=== PATIENT | male | born 1975 | race Caucasian/White ===

== ENCOUNTER 2023-07-23 15:47 | Outpatient (OUT) | payer OTHER, SELFPAY ==
--- NOTE | 2023-07-23 | XR_ITS ---
The [place] [id number] Patient Name: GABBI ALLISON MRN: [id number] date: 1975 Sex: M Assigned Patient Location: [facility] Current Patient Location: [facility] Accession/Order Number: [id number] Exam Date: 07/23/2023 16:01 Report Date: 07/23/2023 16:40 At the request of: MASON LERNER Procedure: XR tibia fibula LT 2V EXAM: XR ankle LT min 3V, XR tibia fibula LT 2V HISTORY: LEFT ANKLE INJURY COMPARISON: None. TECHNIQUE: Frontal and lateral views of the left tibia and fibula, 3 views of the left ankle are performed. FINDINGS: There is soft tissue thickening in the region of the Achilles tendon. There is some stranding of the pre-Achilles fat pad. No acute fracture is identified. There is a small plantar calcaneal spur, and an enthesophyte at the insertion of the Achilles tendon. The ankle mortise is preserved. XR/XR tibia fibula LT 2V IMPRESSION: Thickening of the Achilles tendon. This patient may benefit from further evaluation with MRI to exclude partial tear. No acute fracture. Electronically authenticated by: FADY DUNLAP Date: 07/23/2023 16:40
--- NOTE | 2023-07-23 | XR_ITS ---
The [place] [id number] Patient Name: GABBI ALLISON MRN: [id number] date: 1975 Sex: M Assigned Patient Location: [facility] Current Patient Location: [facility] Accession/Order Number: [id number] Exam Date: 07/23/2023 16:01 Report Date: 07/23/2023 16:40 At the request of: MASON LERNER Procedure: XR ankle LT min 3V EXAM: XR ankle LT min 3V, XR tibia fibula LT 2V HISTORY: LEFT ANKLE INJURY COMPARISON: None. TECHNIQUE: Frontal and lateral views of the left tibia and fibula, 3 views of the left ankle are performed. FINDINGS: There is soft tissue thickening in the region of the Achilles tendon. There is some stranding of the pre-Achilles fat pad. No acute fracture is identified. There is a small plantar calcaneal spur, and an enthesophyte at the insertion of the Achilles tendon. The ankle mortise is preserved. XR/XR ankle LT min 3V IMPRESSION: Thickening of the Achilles tendon. This patient may benefit from further evaluation with MRI to exclude partial tear. No acute fracture. Electronically authenticated by: FADY DUNLAP Date: 07/23/2023 16:40
== END 2023-07-23 15:48 | disposition home or self-care (01) ==
PROVIDERS: PCP Family Medicine; Visit Provider Nurse Practitioner Family
DX: S86.002A Unspecified injury of left Achilles tendon, initial encounter (principal)
CPT/HCPCS: 73590; 73610

== ENCOUNTER 2023-07-25 12:39 | Outpatient (OUT) | payer SELFPAY | END 2023-07-25 12:40 | disposition home or self-care (01) | LOC: PST 12:39 | PROVIDERS: PCP Family Medicine; Visit Provider Podiatrist Foot & Ankle Surgery | DX: Z01.818 Encounter for other preprocedural examination (principal); S86.012A Strain of left Achilles tendon, initial encounter; I10 Essential (primary) hypertension ==

== ENCOUNTER 2023-07-28 14:58 | Observation (INO) | payer OTHER, SELFPAY ==
[2023-07-28] VITALS (67 sets, daily range): BP systolic 94–150; BP diastolic 54–103; PULSE 69–186; RESP 9–23; TEMP 36.2–36.8; O2SAT 91–98; BMI 32.2; BMI 34.0
[2023-07-28 08:15] LABS: Glucometer 109 mg/dL (74-106)
--- NOTE | 2023-07-28 08:22 | ECG_ITS ---
The [facility] Test Date: 2023-07-28 Pat Name: GABBI ALLISON Department: Room: - Gender: Male Foster Parent: : 1975 Requested By: FREDI SANDOVAL Order Number: [id number] Reading MD: EULALIO CACERES Measurements Intervals [place] Rate: 66 P: 8 MS: 161 QRS: 45 QRSD: 102 T: 34 QT: 399 QTc: 420 Interpretive Statements SINUS RHYTHM INCOMPLETE RIGHT BUNDLE BRANCH BLOCK [90+ ms QRS DURATION, TERMINAL R IN V1/V2, 40+ ms S IN I/aVL/V4/V5/V6] No previous ECG available for comparison Electronically Signed On 07-29-2023 7:01:52 EDT by EULALIO CACERES
[2023-07-28 08:31] LABS: Basophils Absolute Auto 0.1 10^3/uL (0.0-0.1); Basophils Percent Auto 0.6 % (0.2-2.0); Eosinophils Absolute Auto 0.1 10^3/uL (0.0-0.7); Eosinophils Percent Auto 1.2 % (0.9-7.0); Hematocrit 45.9 % (42.0-54.0); Hemoglobin 15.3 g/dL (14.0-18.0); Immature Granulocytes Abs Auto 0.04 10^3/uL (0.00-0.03); Immature Granulocytes Pct Auto 0.5 % (0.0-0.5); Lymphocytes Absolute Auto 2.4 10^3/uL (1.2-3.8); Lymphocytes Percent Auto 31.1 % (20.5-60.0); Mean Corpuscular HGB Conc 33.3 g/dL (29.9-35.2); Mean Corpuscular Hemoglobin 29.4 pg (25.9-34.0); Mean Corpuscular Volume 88.1 fL (80.0-94.0); Mean Platelet Volume 10.8 fL (9.5-13.5); Monocytes Absolute Auto 0.6 10^3/uL (0.3-0.8); Monocytes Percent Auto 7.8 % (1.7-12.0); Neutrophils Absolute Auto 4.6 10^3/uL (1.4-6.5); Neutrophils Percent Auto 58.8 % (43.0-75.0); Platelet Count 232 10^3/uL (150-450); Red Blood Count 5.21 10^6/uL (4.70-6.10); Red Cell Distribution Width 11.9 % (11.0-15.0); White Blood Count 7.8 10^3/uL (4.0-11.0)
[2023-07-28] MEDS: LACTATED RINGER'S SOLUTION 1,000 ML 50 ML IV ×2 (08:39→12:11)
[2023-07-28 08:42] LABS: Alanine Aminotransferase 29 U/L (16-63); Albumin Globulin Ratio 1.1; Albumin Level 3.8 g/dL (3.4-5.0); Alkaline Phosphatase 88 U/L (46-116); Anion Gap 14.8; Aspartate Amino Transferase 12 U/L (15-37); BUN Creatinine Ratio 17.8; Bilirubin Total 0.6 mg/dL (0.2-1.0); Calcium 9.4 mg/dL (8.5-10.1); Carbon Dioxide 26.6 mmol/L (21.0-32.0); Chloride 101 mmol/L (98-107); Estimated GFR (African America >60 (>=60); Estimated GFR (Non-African Ame >60 (>=60); Globulin 3.5 g/dL; Glucose 111 mg/dL (74-106); Potassium 4.4 mmol/L (3.5-5.1); Sodium 138 mmol/L (136-145); Total Protein 7.3 g/dL (6.4-8.2)
[2023-07-28] MEDS: CEFAZOLIN SODIUM/DEXTROSE,ISO 2 GM/50 ML PIGGYBACK IV (11:23)
[2023-07-28] MEDS: VANCOMYCIN HCL 1,000 MG VIAL 1000 MG TOPICAL (12:50)
--- NOTE | 2023-07-28 13:18 | XR_ITS ---
The [address] [address] Patient Name: GABBI ALLISON MRN: [id number] date: 1975 Sex: M Assigned Patient Location: SURGOUT Current Patient Location: ICU Accession/Order Number: [id number] Exam Date: 07/28/2023 14:15 Report Date: 07/29/2023 08:58 At the request of: ELAINE GRIFFIN Procedure: XR foot LT min 3V PROCEDURE: XR foot LT min 3V COMPARISON: HISTORY: postop xr pacu FINDINGS: BONES:No fracture, acute abnormality, or significant arthropathy. SOFT TISSUES:Posterior ankle soft tissue swelling and subcutaneous emphysema. Subtle lucencies in the posterior calcaneus, postsurgical change EFFUSION:None visible. OTHER: Negative. XR/XR foot LT min 3V IMPRESSION: Postsurgical changes posterior ankle and calcaneus Electronically authenticated by: KEVYN PASTOR Date: 07/29/2023 08:58
--- NOTE | 2023-07-28 13:27 | P.ORON_ITS ---
Brief Operative Note Date of procedure: 07/28/23 Pre-op diagnosis: left Achilles tendon rupture Post-op diagnosis: same as pre-op Procedure: PROCEDURES PERFORMED: LEFT Achilles tendon rupture repair with application of short leg splint INTRAOPERATIVE FINDINGS: Complete rupture of the Achilles tendon in the watershed area with retraction of __ cm. Hematoma was notable and evacuated. Skin edges bled appropriately. PROCEDURE IN DETAIL: Patient was identified in the preoperative holding area and correct side and site were marked. I reviewed the consent with the patient as well as risks and benefits of the procedure. I reviewed postsurgical course and answered all questions. Preoperative antibiotics were started and the patient was brought to the operating theater and was intubated. Thigh tourniquet was applied. He was then flipped onto the operative table in a well-padded prone position. The operative extremity was prepped and draped in usual sterile fashion. Formal timeout was performed. The rupture site was identified and a central posterior 6 cm incision was placed over the Achilles tendon proximal to the rupture site. Sharp and blunt dissection was performed and the peritenon was identified and meticulously reflected for later repair. Hematoma was evacuated and the surgical site was irrigated with copious saline. Utilizing suture tape a Krak?w stitch was performed on the proximal Achilles tendon. The two limbs of the suture tape were tagged for later use. The distal Achilles tendon rupture site was identified and debrided of any hematoma and the surgical site was irrigated thoroughly. Then two stab incisions were placed on the medial and lateral insertion sites. Blunt dissection down to bone was performed. Two drill holes for suture anchors were placed in each of the stab incisions. The suture tape was then passed with a Sheree clamp into each of the stab incisions. Then my trading assistant held the foot in maximum plantar flexion as well as held tension on the lateral suture tape while I placed the medial suture tape through a 4.5 mm anchor. According to the commercial lines account manager's standard directions that anchor was placed into the drill hole holding tension appropriately. Then in a similar fashion another anchor was placed through the lateral stab incision. It was noted on the table that there was good apposition between the ruptured sites. Good fixation was obtained with testing plantarflexion/dorsiflexion of the ankle. surgical site was irrigated copiously and a allograft tendon wrap was placed around the Achilles tendon at the rupture site and sewn to itself. The graft was then rotated to hide the sutures and the graft was translated distally covering the rupture site. Surgical site was irrigated with saline and 1 g of vancomycin powder was placed into the surgical site. The peritenon was repaired with absorbable suture. Tourniquet was then dropped and the incision was closed in layers while the stab incisions were closed in one layer with nonabsorbable suture. A dry sterile dressing was applied. Multiple layers of cast padding were then applied to ensure all bony prominences were well-padded. A plaster posterior splint was then applied which was held in place by Patel wraps. Capillary refill time to all digits was evaluated and had appropriate response. POSTOPERATIVE PLAN: Discharge home under family's care Post op instructions provided verbally and written prescription(s) were placed in chart NWB operative foot/ankle x3 wks Follow-up in 1 week Implants: Artelon allograft tendon wrap Anesthesia: regional and General-ET Surgeon: Oliverio Britton Senior Sql Developer: Dain Douglas Estimated blood loss (mL): 10 Pathology: none sent Condition: other (Patient upon waking up went into A-flutter which was medically managed by anesthesia. Heart rate and rhythm returned to normal and patient conversed normally in the PACU. No cardioversion was necessary. Please see anesthesia notes/report for details ) Disposition: PACU Preoperative Details Reason for procedure: patient is a 47-year-old male who sustained a work-related injury to his left Achilles tendon on 07/23/23. Patient related that he felt a pop as Achilles tendon followed by pain and inability to plantarflex his foot. He was taken to the emergency department and evaluated and findings were consistent with Achilles tendon tear. I saw him in the office on 07/25/23 and he demonstrated a well-developed in the watershed area of the Achilles tendon, localized swelling and weakness on plantar flexion. We discussed potential risks and benefits of surgical and nonsurgical treatment. Patient was educated on his pathology and prognosis as well as potential complications. Specifically we discussed that he is at higher risk for incision complications given active nicotine use, rerupture and chronic weakness. Patient wished to proceed with surgical intervention.
--- NOTE | 2023-07-28 13:32 | ECG_ITS ---
The [facility] Test Date: 2023-07-28 Pat Name: GABBI ALLISON Department: Room: - Gender: Male Foot Caster: : 1975 Requested By: AMANDA DOHERTY Order Number: [id number] Reading MD: EULALIO CACERES Measurements Intervals [place] Rate: 85 P: 19 NC: 158 QRS: 58 QRSD: 99 T: 32 QT: 386 QTc: 461 Interpretive Statements SINUS RHYTHM WITH OCCASIONAL VENTRICULAR PREMATURE COMPLEXES NONSPECIFIC T-WAVE ABNORMALITY Compared to ECG 07/28/2023 08:30:17 Ventricular premature complex(es) now present T-wave abnormality now present Incomplete right bundle-branch block no longer present Electronically Signed On 07-29-2023 7:04:03 EDT by EULALIO CACERES
[2023-07-28] MEDS: HYDROMORPHONE HCL 0.5 MG/0.5 ML SYRINGE IV ×2 (13:43→13:53)
[2023-07-28 13:45] LABS: Glucometer 122 mg/dL (74-106)
[2023-07-28] MEDS: OXYCODONE HCL/ACETAMINOPHEN 5MG/325MG 1 TAB PO (13:55)
--- NOTE | 2023-07-28 14:30 | ECG_ITS ---
The [facility] Test Date: 2023-07-28 Pat Name: GABBI ALLISON Department: Room: [facility] Gender: Male [employer]: : 1975 Requested By: AMANDA DOHERTY Order Number: [id number] Reading MD: EULALIO CACERES Measurements Intervals [place] Rate: 167 P: [place]: QRS: 83 QRSD: 91 T: -9 QT: 235 QTc: 392 Interpretive Statements ATRIAL FIBRILLATION WITH RAPID VENTRICULAR RESPONSE WITH ABERRANT CONDUCTION OR VENTRICULAR PREMATURE COMPLEXES NONSPECIFIC ST & T-WAVE ABNORMALITY Compared to ECG 07/28/2023 13:38:48 Aberrant conduction of supraventricular beat(s) now present Sinus rhythm no longer present T-wave abnormality still present Electronically Signed On 07-29-2023 7:04:25 EDT by EULALIO CACERES
--- NOTE | 2023-07-28 14:56 | PC.NURSE ---
Dr. Oscar aware of each episode of irregular rhythms. Obtained 2 12 lead EKG's. Patient was asymptomatic with each bout. After further discussion, patient was admitted to ICU for further observation and is being placed on a Cardizem drip for new onset A fib with RVR. Patient and spouse both voiced understanding.
--- NOTE | 2023-07-28 15:02 | CA_ITS ---
Patient: GABBI ALLISON Exam Date: 07/29/2023 : 1975 Gender:M Ordering : DAI SHELTON . Admission #: [id number] Family : DR. Oliverio Britton D.P.M. Order #: [id number] CLICK HERE TO VIEW EXAM ECHOCARDIOGRAM REPORT PROCEDURE: CA ECHO DOPPLER COMPLETE INDICATIONS: new onset afib w/RVR COMPARISON: None. DESCRIPTION: COMPLETE ECHOCARDIOGRAM Real-time transthoracic echocardiography with 2D, M-mode, spectral and color flow Doppler performed. QUALITY: Technical quality was adequate. LEFT VENTRICLE: Normal chamber size. Normal left ventricular wall thickness. LV EF: Global left ventricular systolic function is normal. Visual estimation of left ventricular ejection fraction is 60%. DIASTOLIC: Normal diastolic function. ATRIAL SEPTUM: Inadequately seen. LEFT ATRIUM: Normal chamber size. RIGHT ATRIUM: Normal chamber size. RIGHT VENTRICLE: Normal chamber size. Normal right ventricular systolic function. TRICUSPID VALVE: Normal mobility and thickness. No stenosis with trivial regurgitation. No evidence of pulmonary hypertension. RVSP 24mmHg. MITRAL VALVE: Normal mobility and thickness. No evidence of mitral valve stenosis. There is no mitral annular calcification. Trivial mitral regurgitation. AORTIC VALVE: Normal trileaflet appearance. No visible sclerosis. Normal leaflet mobility. No evidence of aortic valve stenosis. No aortic regurgitation. AORTIC ROOT: Normal diameter and appearance. PULMONIC VALVE: Normal thickness and mobility. No stenosis. Trivial regurgitation. PERICARDIUM: No evidence of pericardial effusion. IVC: Collapses with inspirations. Normal size. CONCLUSION: 1. Global left ventricular systolic function is normal; visually estimated ejection fraction is 55 to 60% 2. Normal diastolic function 3. The right ventricle is normal in size and systolic function 4. No significant valvular abnormalities Adult Echocardiography Procedure Report Left Ventricle LVEDD (3.7 - 5.6 cm): 4.43 cm LVESD (2.2 - 4.0 cm): 3.08 cm LVIVS thickness (0.6 - 1.2 cm): 0.89 cm LVPW thickness (0.5 - 1.0 cm): 1.04 cm e': 0.13 m/s E - e': 6.16 LVOT Max Gradient: 4.30 mm[Hg] LVOT Area (cm2): 1.04 m/s Peak Velocity (LVOT): 1.04 m/s Mean Velocity (LVOT): 0.60 m/s LVOT Diameter 2.22 cm Left Ventricular Ejection Fraction: 71.16 % Left Atrium LA Volume Index (2D A2C): 34.09 ml/m2 Left Atrium Systolic Dimension: 4.20 cm Mitral Valve MV E to A Ratio: 1.33 Mitral Valve A-Wave Peak Velocity: 0.60 m/s Mitral Valve E-Wave Peak Velocity: 0.79 m/s Right Ventricle RV Internal Diastolic Dimension: 3.44 cm Aorta AO Root Diam: 3.43 cm Ascending Ao Diam: 3.36 cm Aortic Valve AoV Area (Peak Alon): 3.01 cm2, 3.01 cm2 AoV Area (VTI): 2.98 cm2, 2.98 cm2 Peak Velocity(Antegrade Flow): 1.33 m/s Peak Gradient(Antegrade Flow): 7.03 mm[Hg] Mean Velocity(Antegrade Flow): 0.90 m/s Mean Gradient(Antegrade Flow): 3.73 mm[Hg] Velocity Time Integral: 29.20 cm Tricuspid Valve Peak Velocity (Regurgitant Flow): 1.78 m/s, 2.05 m/s, 2.29 m/s Pulmonic Valve Mean Gradient: 2.28 mm[Hg], 2.84 mm[Hg] Mean Velocity: 0.70 m/s, 0.78 m/s Peak Velocity: 1.14 m/s Peak Gradient: 4.45 mm[Hg], 5.99 mm[Hg] Right Atrium Right Atrium Systolic Pressure: 56.06 ml, 56.06 ml Dictated by: Ky Quiros M.D. on 07/31/2023 at 16:13 Approved by: Ky Quiros M.D. on 07/31/2023 at 16:16
[2023-07-28] MEDS: DILTIAZEM HCL 25 MG/5 ML VIAL 10 MG IV (15:14)
[2023-07-28] MEDS: dilTIAZem HCL 125 MG in 0.9 % SODIUM CHLORIDE 100 ML IV (15:20)
--- NOTE | 2023-07-28 15:32 | PM.HP ---
H&P: HPI History of Present Illness Chief complaint: RUPTURE OF LEFT ACHILLES TENDON Narrative: patient is a 47-year-old male with past history of hypertension who presented in the postoperative setting with new onset atrial fibrillation with RVR. Patient underwent a left Achilles tendon repair and had a few 2nd run of ventricular tachycardia that transitioned into atrial fibrillation with RVR that was then captured on EKG. Patient has no prior cardiac history other than hypertension of which he takes lisinopril and amlodipine. He does smokeless tobacco, and drinks alcohol daily. He currently denies any chest pain shortness of breath at the time of admission, patient was transferred from the PACU to the ICU for further management. Review of Systems ROS Narrative ROS: a complete review of systems were reviewed with patient and are positive as below or listed in History of Chief Complaint. General: no fever, chills, night sweats Head: no headache, trauma, visual changes, nausea or vomiting Skin: no reported rashes, itching or sores Eyes: no blurriness of vision Ears: no reported hearing loss, vertigo, earache, or tinnitus Throat: no sore throat, hoarseness, swelling of neck, or tongue pain Heart: no chest pain Lungs: no shortness of breath or cough GI: no diarrhea or vomiting/nausea Urinary: no urinary urgency, frequency or pain Neuro: no numbness or tingling HEM: no bleeding issues or bruising ENDO: no thyroid problems Psych: no anxiety or depression PFSH PFS Medical History Surgical History Family History Other Atrial fibrillation Family history of coronary artery disease Family history of heart disease Social History Within the past year, how often did you have a drink containing alcohol: 2-3 times a week Smoking status: Never smoker Previous occupational history: [employer] Highest level of school completed/degree received: high school graduate Meds Home Medications and Allergies Home Medications Medication Instructions Recorded Confirmed Type amlodipine 10 mg tablet 10 mg PO DAILY 07/25/23 07/28/23 History lisinopril 20 mg tablet 20 mg PO DAILY 07/25/23 07/28/23 History aspirin 81 mg tablet,delayed 81 mg PO BID 30 days #60 tabs 07/28/23 Rx release (Adult Low Dose Aspirin) cefadroxil 500 mg capsule 500 mg PO BID 2 weeks #28 caps 07/28/23 Rx hydrocodone 5 mg-acetaminophen 325 1 tab PO Q6H PRN pain 7 days #28 07/28/23 Rx mg tablet tabs ondansetron 4 mg disintegrating 4 mg PO Q8H PRN nausea and 07/28/23 Rx tablet vomiting 5 days #15 tabs sennosides 8.6 mg tablet (Senna 8.6 mg PO DAILY PRN constipation 7 07/28/23 Rx Laxative) days #7 tabs tizanidine 2 mg capsule 2 mg PO TID PRN muscle spasticity 07/28/23 Rx 7 days #21 caps Allergies Allergy/AdvReac Type Severity Reaction Status Date / Time No Known Drug Allergies Allergy Verified 07/25/23 12:02 Exam Narrative Exam Narrative: General: Patient is alert, and oriented to person, place and time with normal affect, proper hygiene Skin: no visible rashes, or ulcers Head: atraumatic, acephalic Eyes: PERRLA, no nystagmus present, conjunctiva clear, no scleral icterus Ears: normal gross auditory acuity Nose: symmetric, no discharge, no maxillary or frontal sinus tenderness Heart: irregular rate and rhythm, no murmurs/rubs/gallops Lungs: no audible wheezes, crackles and normal breath sounds all lung garcia Abdomen: Normal audible bowel sounds, no distension, No palpable masses, no organomegaly, no rebound/guarding/ or rigidity Musculoskeletal: left foot boot/c/d/i Neuro: CN II-X grossly intact, normal sensation upper and lower extremities Constitutional Vital Signs, click to edit/add: Last Vital Signs Temp 98.2 F 07/28/23 14:52 Pulse 160 H 07/28/23 14:58 Resp 16 07/28/23 14:52 BP 108/72 07/28/23 15:14 Pulse Ox 98 07/28/23 14:52 O2 Del Method Room Air 07/28/23 14:52 Results Labs Labs: Short CBC 07/28/23 Range/Units 08:15 WBC 7.8 (4.0-11.0) 10^3/uL Hgb 15.3 (14.0-18.0) g/dL Hct 45.9 (42.0-54.0) % Plt Count 232 (150-450) 10^3/uL BMP 07/28/23 08:15 Sodium 138 Potassium 4.4 Chloride 101 Carbon Dioxide 26.6 BUN 16.0 Creatinine 0.90 Glucose 111 H Calcium 9.4 Liver Function 07/28/23 Range/Units 08:15 Total Bilirubin 0.6 (0.2-1.0) mg/dL AST 12 L (15-37) U/L ALT 29 (16-63) U/L Alkaline Phosphatase 88 (46-116) U/L Albumin 3.8 (3.4-5.0) g/dL Assessment and Plan Assessment and Plan (1) Atrial fibrillation with rapid ventricular response: Assessment and Plan: new-onset atrial fibrillation, will place on Lovenox therapeutic and transition to Eliquis tomorrow. Was given a loading dose of diltiazem 10 mg IV ?1 and will be started on a diltiazem drip at 5 mg per hour. Titrate drip accordingly. Echocardiogram, magnesium, cardiac enzymes, pro BNP, CBC, CMP, lipids, thyroid, hemoglobin A1c are all ordered and pending. Cardiology consult for further recommendations and treatment. CIWA scores q shift for any alcohol withdrawal (2) New onset a-fib: Assessment and Plan: see #1 (3) Hypertension: Assessment and Plan: hold lisinopril and amlodipine for now (4) Achilles tendon rupture: Assessment and Plan: podiatry following, pain control Plan full code lovenox to eliquis observation status, cards consult
[2023-07-28 15:39] LABS: Estimated Average Glucose 123 mg/dL; Glycohemoglobin A1C 5.9 % (4.5-6.2)
[2023-07-28 15:45] LABS: INR 0.94; Partial Thromboplastin Time 28.1 sec (22.3-36.2)
[2023-07-28 15:52] LABS: Creatine Kinase 57 U/L (39-308); Creatine Kinase MB <0.50 ng/mL (<=3.60); Troponin I High Sensitivity <4.0 pg/mL (4.0-76.1)
[2023-07-28 15:53] LABS: Alanine Aminotransferase 31 U/L (16-63); Albumin Globulin Ratio 1.1; Albumin Level 3.7 g/dL (3.4-5.0); Alkaline Phosphatase 85 U/L (46-116); Anion Gap 11.9; Aspartate Amino Transferase 14 U/L (15-37); BUN Creatinine Ratio 15.6; Bilirubin Total 0.4 mg/dL (0.2-1.0); Carbon Dioxide 27.2 mmol/L (21.0-32.0); Chloride 103 mmol/L (98-107); Chol HDL Ratio 6.5; Cholesterol 226 mg/dL (<=200); Estimated GFR (African America >60 (>=60); Estimated GFR (Non-African Ame >60 (>=60); Globulin 3.4 g/dL; Glucose 140 mg/dL (74-106); HDL Cholesterol 35 mg/dL (40-60); Magnesium 1.9 mg/dL (1.8-2.4); Potassium 4.1 mmol/L (3.5-5.1); Sodium 138 mmol/L (136-145); Thyroid Stimulating Hormone 0.736 uIU/mL (0.358-3.740); Total Protein 7.1 g/dL (6.4-8.2); Triglycerides 186 mg/dL (<=150); VLDL CHOLESTEROL 37.2 mg/dL
[2023-07-28 15:56] LABS: SARS-CoV-2 Ag NEGATIVE (NEGATIVE)
[2023-07-28 16:07] LABS: Basophils Percent Auto 0.2 % (0.2-2.0); Hematocrit 44.7 % (42.0-54.0); Hemoglobin 14.9 g/dL (14.0-18.0); Immature Granulocytes Abs Auto 0.05 10^3/uL (0.00-0.03); Immature Granulocytes Pct Auto 0.4 % (0.0-0.5); Lymphocytes Absolute Auto 0.6 10^3/uL (1.2-3.8); Lymphocytes Percent Auto 5.5 % (20.5-60.0); Mean Corpuscular HGB Conc 33.3 g/dL (29.9-35.2); Mean Corpuscular Hemoglobin 29.3 pg (25.9-34.0); Mean Corpuscular Volume 87.8 fL (80.0-94.0); Mean Platelet Volume 11.3 fL (9.5-13.5); Monocytes Absolute Auto 0.1 10^3/uL (0.3-0.8); Monocytes Percent Auto 0.5 % (1.7-12.0); Neutrophils Absolute Auto 10.5 10^3/uL (1.4-6.5); Neutrophils Percent Auto 93.4 % (43.0-75.0); Platelet Count 238 10^3/uL (150-450); Red Blood Count 5.09 10^6/uL (4.70-6.10); White Blood Count 11.2 10^3/uL (4.0-11.0)
[2023-07-28] MEDS: METOPROLOL TARTRATE 25 MG TABLET PO (17:11)
[2023-07-28] MEDS: dilTIAZem HCL 125 MG in 0.9 % SODIUM CHLORIDE 100 ML 10 MG IV (17:31)
--- NOTE | 2023-07-28 17:53 | PM.CACN ---
History of Present Illness History of Present Illness Consult date: 07/28/23 Requesting physician: Charity Ragsdale Consult reason: atrial fibrillation Chief complaint: RUPTURE OF LEFT ACHILLES TENDON Narrative: Mr. Sprague is a 47-year-old male with a past medical history including HTN who presented to the hospital for planned surgery due to rupture of left Achilles tendon. Postoperatively, patient was noted to be in atrial fibrillation with rapid ventricular response. Cardiology was asked to consult on patient for atrial fibrillation with rapid ventricular response. Patient was interviewed and examined. He denies any cardiac complaints or concerns. He adamantly denies any chest pain or shortness of breath. He denies any lower extremity edema, orthopnea, or paroxysmal nocturnal dyspnea. He denies any palpitations. He denies any near syncope or syncope. Patient denies any previous cardiac history. No history of AR, CHF, or CVA. He denies any history of arrhythmia. Patient is very active at baseline. He is a [employer], and he is reports rigorous activity without any symptoms. Again, no chest pain or shortness of breath with heavy exertion Review of Systems ROS Status of ROS 10 or more systems reviewed and unremarkable except as noted in history and below [facility] Medical History Surgical History Family History Other Atrial fibrillation Family history of coronary artery disease Family history of heart disease Social History Within the past year, how often did you have a drink containing alcohol: 2-3 times a week Smoking status: Never smoker Previous occupational history: [employer] Highest level of school completed/degree received: high school graduate Meds Home Medications and Allergies Home Medications Medication Instructions Recorded Confirmed Type amlodipine 10 mg tablet 10 mg PO DAILY 07/25/23 07/28/23 History lisinopril 20 mg tablet 20 mg PO DAILY 07/25/23 07/28/23 History aspirin 81 mg tablet,delayed 81 mg PO BID 30 days #60 tabs 07/28/23 Rx release (Adult Low Dose Aspirin) cefadroxil 500 mg capsule 500 mg PO BID 2 weeks #28 caps 07/28/23 Rx hydrocodone 5 mg-acetaminophen 325 1 tab PO Q6H PRN pain 7 days #28 07/28/23 Rx mg tablet tabs ondansetron 4 mg disintegrating 4 mg PO Q8H PRN nausea and 07/28/23 Rx tablet vomiting 5 days #15 tabs sennosides 8.6 mg tablet (Senna 8.6 mg PO DAILY PRN constipation 7 07/28/23 Rx Laxative) days #7 tabs tizanidine 2 mg capsule 2 mg PO TID PRN muscle spasticity 07/28/23 Rx 7 days #21 caps Allergies Allergy/AdvReac Type Severity Reaction Status Date / Time No Known Drug Allergies Allergy Verified 07/25/23 12:02 Exam Constitutional Vital Signs, click to edit/add: Last Vital Signs Temp 98.2 F 07/28/23 14:52 Pulse 160 H 07/28/23 14:58 Resp 16 07/28/23 14:52 BP 108/72 07/28/23 15:14 Pulse Ox 98 07/28/23 17:13 O2 Del Method Room Air 07/28/23 17:13 Documenting provider has reviewed patient's vital signs: yes Common normals: no apparent distress General appearance: cooperative, comfortable and well developed Orientation/consciousness: Yes awake, Yes oriented to person, Yes oriented to place and Yes oriented to time HENMT Common normals: normocephalic Nose: nares normal Eye Common normals: PERRL and EOMs intact bilaterally Neck & C-Spine Common normals: no JVD Chest Common normals: inspection of chest normal Chest: symmetrical chest wall rise Respiratory Common normals: normal respiratory effort Effort & inspection: able to speak in complete sentences and symmetric chest movement Auscultation: clear to auscultation bilaterally Cardio Common normals: no JVD, S1 normal heart sound and S2 normal heart sound Rate: tachycardic Rhythm: abnormal rhythm Heart sounds: S1 normal and S2 normal GI Common normals: Normal to inspection, nondistended, normoactive bowel sounds present Extremity Common normals: normal to inspection and no clubbing, cyanosis or edema Neuro Common normals: oriented x3, moves all extremities and no focal motor deficits Results Labs and Meds Lab results: Cardiac Enzymes 07/28/23 07/28/23 Range/Units 08:15 15:19 AST 12 L 14 L (15-37) U/L CK-MB (CK-2) <0.50 (<=3.60) ng/mL Coagulation 07/28/23 Range/Units 15:19 PT 10.0 (9.0-11.6) sec APTT 28.1 (22.3-36.2) sec Lipids 07/28/23 Range/Units 15:19 Triglycerides 186 H (<=150) mg/dL Cholesterol 226 H (<=200) mg/dL HDL Cholesterol 35 L (40-60) mg/dL Cholesterol/HDL Ratio 6.5 CBC 07/28/23 07/28/23 Range/Units 08:15 15:19 WBC 7.8 11.2 H (4.0-11.0) 10^3/uL RBC 5.21 5.09 (4.70-6.10) 10^6/uL Hgb 15.3 14.9 (14.0-18.0) g/dL Hct 45.9 44.7 (42.0-54.0) % Plt Count 232 238 (150-450) 10^3/uL Neut # (Auto) 4.6 10.5 H (1.4-6.5) 10^3/uL Lymph # (Auto) 2.4 0.6 L (1.2-3.8) 10^3/uL Mckenzie # (Auto) 0.6 0.1 L (0.3-0.8) 10^3/uL Eos # (Auto) 0.1 0.0 (0.0-0.7) 10^3/uL Baso # (Auto) 0.1 0.0 (0.0-0.1) 10^3/uL Comprehensive Metabolic Panel 07/28/23 07/28/23 Range/Units 08:15 15:19 Sodium 138 138 (136-145) mmol/L Potassium 4.4 4.1 (3.5-5.1) mmol/L Chloride 101 103 (98-107) mmol/L Carbon Dioxide 26.6 27.2 (21.0-32.0) mmol/L BUN 16.0 14.0 (7.0-18.0) mg/dL Creatinine 0.90 0.90 (0.70-1.30) mg/dL Glucose 111 H 140 H (74-106) mg/dL Calcium 9.4 9.0 (8.5-10.1) mg/dL AST 12 L 14 L (15-37) U/L ALT 29 31 (16-63) U/L Alkaline Phosphatase 88 85 (46-116) U/L Total Protein 7.3 7.1 (6.4-8.2) g/dL Albumin 3.8 3.7 (3.4-5.0) g/dL Intake and Output 07/28/23 07/28/23 07/28/23 07:59 15:59 23:59 Intake Total 453.334 / 703.334 250.0 / 703.334 Balance 453.334 / 703.334 250.0 / 703.334 Intake: Other 226.667 / 351.667 125.0 / 351.667 IV 226.667 / 351.667 125.0 / 351.667 Cefazolin Sodium/Dextrose,Iso 2 50 / 50 gm In 50 ml @ 100 mls/hr IV ONCE ONE Rx#:[id number] Lactated Ringer's Solution 1, 176.667 / 176.667 000 ml @ 50 mls/hr IV .Q20H [facility] Rx#:[id number] dilTIAZem HCL 125 mg In 0.9 % 125.0 / 125.0 Sodium Chloride 100 ml @ 5 mls/ hr IV Q12H [facility] Rx#:[id number] Other: Weight 123.5 kg Patient Weight 07/29/23 07:59 Weight 123.5 kg Assessment and Plan Assessment and Plan (1) Atrial fibrillation with rapid ventricular response: (2) New onset a-fib: (3) Hypertension: (4) Achilles tendon rupture: Plan 1. New onset atrial fibrillation with rapid ventricular response, [id number] score is 2 (male, hypertension) ? Agree with Cardizem gtt. for rate control. Recommend starting metoprolol tartrate 25 mg twice daily, and uptitrating as necessary. Would recommend weaning Cardizem gtt. as able. Can d/c Amlodipine in favor for additional beta mallory if blood pressure is an issue. ? Trend troponin x 3 to insure that arrytmias is not ischemia driven post operatively ? Would recommend therapeutic anticoagulation for stroke prevention given [id number] score ? Would recommend echocardiogram to assess LVEF, wall motion, valvular function ? Would recommend checking magnesium level to ensure no significant electrolyte abnormality. Potassium appears to be within normal range ? Would recommend outpatient sleep study to rule out SAGAR 2. HTN ? Continue amlodipine and Lisinopril at this time. If Bp is an issue, can discontinue Amlodipine in favor of metoprolol for better rate control Thank you for allowing us to participate in the care of this patient. Please do not hesitate to contact [facility] cardiology with any question/concerns. Patient to follow-up with [facility]ology on an outpatient basis. Melissa Max MD [facility]
[2023-07-28] MEDS: ENOXAPARIN SODIUM 120 MG/0.8 ML SYRINGE SUBQ (21:03)
--- NOTE | 2023-07-28 21:51 | PC.NURSE ---
left lower leg with surgical dressing/wrap, splint and SENG wrap in place. Dry and intact. Patient able to move leg freely at knee. Ankle is immobilized. Patient's toes are exposed and patient denies ability to feel touch to left toes at this time with post surgical block that he received.
[2023-07-29] VITALS (13 sets, daily range): BP systolic 144; BP diastolic 76; PULSE 64–95; RESP 13–24; TEMP 36.6; O2SAT 97
[2023-07-29] MEDS: OXYCODONE HCL/ACETAMINOPHEN 5MG/325MG 1 TAB PO (04:04)
[2023-07-29] MEDS: METOPROLOL TARTRATE 25 MG TABLET PO (06:51)
--- NOTE | 2023-07-29 08:25 | P.DS_ITS ---
DS: Providers Provider Primary care physician: AMANDA DOHERTY Admitting clinician: Charity Ragsdale Consults: 07/28/23 Consult to Hospitalist Routine Consulting Provider: Yfn Ragsdale II Reason for consultation: new onset a-fib/svt Has provider been notified: Yes 07/28/23 15:02 Consult to Cardiology Routine Consulting Provider: Hospitalist Reason for consultation: new onset afib with rvr Has provider been notified: Yes Attending physician on discharge: Charity Ragsdale DS: Diagnosis Discharge Diagnosis (1) Atrial fibrillation with rapid ventricular response: (2) New onset a-fib: (3) Hypertension: (4) Achilles tendon rupture: (5) Hyperlipidemia: DS: Summary Hospital Course Hospital Course: patient is a 47-year-old male with past history of hypertension who presented in the postoperative setting with new onset atrial fibrillation with RVR. Patient underwent a left Achilles tendon repair and had a few 2nd run of ventricular tachycardia that transitioned into atrial fibrillation with RVR that was then captured on EKG. Patient has no prior cardiac history other than hypertension of which he takes lisinopril and amlodipine. He does smokeless tobacco, and drinks alcohol daily.patient was placed on a Cardizem drip and also started on Lopressor 25 mg twice a day. staff registered nurse patient converted back to normal sinus rhythm and Cardizem drip was stopped at that time. He was also transitioned from Lovenox to Eliquis this morning. He currently denies any chest pain shortness of breath at the time of discharge. lab workup with the exception of elevated cholesterol levels has been negative. Echocardiogram is still pending at the time of discharge. Patient will be discharged home today with close follow-up with cardiology for echocardiogram read and event monitor, and podiatry. Status at Discharge Overall status at discharge: other Time Spent with Patient Time attestation: Total time spent providing and/or coordinating discharge services: Exam Narrative Exam Narrative: General: Patient is alert, and oriented to person, place and time with normal affect, proper hygiene Skin: no visible rashes, or ulcers, left boot, c/d/i Head: atraumatic, acephalic Heart: Normal rate and rhythm, no murmurs/rubs/gallops Lungs: no audible wheezes, crackles and normal breath sounds all lung garcia Abdomen: Normal audible bowel sounds, no distension, No palpable masses, no organomegaly, no rebound/guarding/ or rigidity Musculoskeletal: muscle atrophy noted, ROM is limited due to being in hospital bed, no swelling bilateral lower extremities Neuro: CN II-X grossly intact, normal sensation upper and lower extremities Constitutional Vital Signs, click to edit/add: Last Vital Signs Temp 97.8 F 07/29/23 04:02 Pulse 67 07/29/23 08:00 Resp 16 07/29/23 04:02 BP 144/76 H 07/29/23 04:02 Pulse Ox 97 07/29/23 04:02 O2 Del Method Room Air 07/28/23 20:39 DS: Data Data Completed and Pending Labs on day of discharge: Labs from last 24 hours 07/28/23 07/28/23 07/28/23 15:35 15:19 13:43 WBC 11.2 H RBC 5.09 Hgb 14.9 Hct 44.7 MCV 87.8 MCH 29.3 MCHC 33.3 RDW 12.0 Plt Count 238 MPV 11.3 Neut % (Auto) 93.4 H Lymph % (Auto) 5.5 L Cotton % (Auto) 0.5 L Eos % (Auto) 0.0 L Baso % (Auto) 0.2 Neut # (Auto) 10.5 H Lymph # (Auto) 0.6 L Cotton # (Auto) 0.1 L Eos # (Auto) 0.0 Baso # (Auto) 0.0 Abs Immat Gran (auto) 0.05 H Imm/Tot Granulo (auto) 0.4 PT 10.0 INR 0.94 APTT 28.1 Sodium 138 Potassium 4.1 Chloride 103 Carbon Dioxide 27.2 Anion Gap 11.9 BUN 14.0 Creatinine 0.90 Est GFR ( Amer) >60 Est GFR (Non-Af Amer) >60 BUN/Creatinine Ratio 15.6 Glucose 140 H Estimat Average Glucose 123 Hemoglobin A1c 5.9 Calcium 9.0 Magnesium 1.9 Total Bilirubin 0.4 AST 14 L ALT 31 Alkaline Phosphatase 85 Total Creatine Kinase 57 CK-MB (CK-2) <0.50 Troponin I High Sens <4.0 L NT-Pro-B Natriuret Pep 22.0 Total Protein 7.1 Albumin 3.7 Globulin 3.4 Albumin/Globulin Ratio 1.1 Triglycerides 186 H Cholesterol 226 H LDL Cholesterol, Calc 154.0 VLDL Cholesterol 37.2 HDL Cholesterol 35 L Cholesterol/HDL Ratio 6.5 TSH 0.736 SARS-CoV-2 (PCR) Negative POC Glucose 122 H 07/28/23 08:15 WBC 7.8 RBC 5.21 Hgb 15.3 Hct 45.9 MCV 88.1 MCH 29.4 MCHC 33.3 RDW 11.9 Plt Count 232 MPV 10.8 Neut % (Auto) 58.8 Lymph % (Auto) 31.1 Cotton % (Auto) 7.8 Eos % (Auto) 1.2 Baso % (Auto) 0.6 Neut # (Auto) 4.6 Lymph # (Auto) 2.4 Cotton # (Auto) 0.6 Eos # (Auto) 0.1 Baso # (Auto) 0.1 Abs Immat Gran (auto) 0.04 H Imm/Tot Granulo (auto) 0.5 PT INR APTT Sodium 138 Potassium 4.4 Chloride 101 Carbon Dioxide 26.6 Anion Gap 14.8 BUN 16.0 Creatinine 0.90 Est GFR ( Amer) >60 Est GFR (Non-Af Amer) >60 BUN/Creatinine Ratio 17.8 Glucose 111 H Estimat Average Glucose Hemoglobin A1c Calcium 9.4 Magnesium Total Bilirubin 0.6 AST 12 L ALT 29 Alkaline Phosphatase 88 Total Creatine Kinase CK-MB (CK-2) Troponin I High Sens NT-Pro-B Natriuret Pep Total Protein 7.3 Albumin 3.8 Globulin 3.5 Albumin/Globulin Ratio 1.1 Triglycerides Cholesterol LDL Cholesterol, Calc VLDL Cholesterol HDL Cholesterol Cholesterol/HDL Ratio TSH SARS-CoV-2 (PCR) POC Glucose Discharge Plan Discharge Disposition: Home, Self-Care Condition: Good Discharge Medications: New hydrocodone-acetaminophen 5-325 mg tablet 1 tab PO Q6H PRN (Reason: pain) 7 Days Qty: 28 0RF cefadroxil 500 mg capsule 500 mg PO BID 14 Days Qty: 28 0RF ondansetron 4 mg tablet,disintegrating 4 mg PO Q8H PRN (Reason: nausea and vomiting) 5 Days Qty: 15 0RF sennosides [Senna Laxative] 8.6 mg tablet 8.6 mg PO DAILY PRN (Reason: constipation) 7 Days Qty: 7 0RF tizanidine 2 mg capsule 2 mg PO TID PRN (Reason: muscle spasticity) 7 Days Qty: 21 0RF metoprolol tartrate 25 mg Tablet 25 mg PO BID 30 Days Qty: 60 0RF Eliquis 5 mg Tablet 5 mg PO BID 30 Days Qty: 60 0RF atorvastatin [Lipitor] 10 mg tablet 10 mg PO QPM Qty: 30 0RF Continued lisinopril 20 mg tablet 20 mg PO DAILY Discontinued amlodipine 10 mg tablet 10 mg PO DAILY Activity: ambulate only with your walker and other Activity Detail: weight baring and activity per podiatry Diet: advance to your usual diet Print Language: [place] Patient Instructions: Cefadroxil (By mouth), Metoprolol (By mouth), Hydrocodone/Acetaminophen (By mouth), Aspirin (By mouth), Ondansetron (By mouth, Into the mouth), Tizanidine (By mouth), Apixaban (By mouth), Senna (By mouth), A-fib (Atrial Fibrillation) (ED), A-fib (Atrial Fibrillation) (DC), A-fib (Atrial Fibrillation) (GEN), Blood Thinners (ED), Achilles Tendon Repair (DC) Activity Restrictions/Additional Instructions: Please leave dressing to left foot clean dry and intact. Do not attempt to remove the dressing or get it wet. Please maintain nonweightbearing to the left leg. Use crutches walker or knee scooter for assistance. Please take medications as prescribed. Please rest, ice behind the left knee, and elevate the left foot above the level of your chest to assist with pain and swelling. Please follow-up with Dr. Britton's office in 1 week. Please call to confirm appointment. SEDATION - For the next 24 hours: * Take it easy and rest today. You do not need to stay in bed, but avoid strenuous activities. * You may resume normal activities tomorrow. * DO NOT drive a car. * DO NOT leave your child unattended. * DO NOT make any important personal or business decisions or sign any legal documents. * DO NOT operate machinery such as power tools, lawn mowers, snow blowers, sewing machines, etc. * DO NOT stay alone. Notify Physician: For temp greater than 100.5 Bleeding through on dressing or foul odor from dressing. Monitor your toes on surgical extremity. Toes should be warm and pink. Update physician if dusky in color or cold to touch. Elevate surgical extremity to minimize swelling. Follow Up Appointments: Please follow-up with Dr. Wallis office in 1 week. follow up with [facility]/cardiology [facility] Aug 05 2023 @ 09:20 Discharge Date/Time: 07/29/23 10:24
[2023-07-29] MEDS: APIXABAN 5 MG TABLET PO ×2 (09:35→09:39)
[2023-07-29] MEDS: DOCUSATE SODIUM 100 MG CAPSULE PO (09:35)
--- NOTE | 2023-07-29 10:24 | P.PN_ITS ---
Progress Note: Subjective Subjective Interval history: Patient seen resting comfortably at bedside this AM. POD #1 s/p left primary Achilles rupture repair DOS 07/28/2023. Denies any acute events overnight. Admits to mild to moderate pain in the left posterior ankle region, controlled with meds ice and elevation. Denies any other acute lower extremity complaints. Denied any constitutional symptoms at time of visit. Exam Narrative Exam Narrative: LLE splint left CDI. Vascular: CFT intact to digits. Skin temperature warm and symmetric proximal and distal to dressing. No erythema edema or ecchymosis proximal or distal to dressing. Neuro: Light touch gross sensation intact to digits. Derm: No open lesions proximal or distal to dressing. No ascending lymphangitis. Musculoskeletal: Active and passive range of motion of digits present. Compartment soft compressible, no pain with calf or thigh compression. Constitutional Vital Signs, click to edit/add: Last Vital Signs Temp 97.8 F 07/29/23 04:02 Pulse 67 07/29/23 08:00 Resp 16 07/29/23 04:02 BP 144/76 H 07/29/23 04:02 Pulse Ox 97 07/29/23 04:02 O2 Del Method Room Air 07/28/23 20:39 Progress Note: Objective Labs Labs: Short CBC 07/28/23 Range/Units 15:19 WBC 11.2 H (4.0-11.0) 10^3/uL Hgb 14.9 (14.0-18.0) g/dL Hct 44.7 (42.0-54.0) % Plt Count 238 (150-450) 10^3/uL BMP 07/28/23 15:19 Sodium 138 Potassium 4.1 Chloride 103 Carbon Dioxide 27.2 BUN 14.0 Creatinine 0.90 Glucose 140 H Calcium 9.0 Cardiac Enzymes 07/28/23 Range/Units 15:19 Total Creatine Kinase 57 (39-308) U/L CK-MB (CK-2) <0.50 (<=3.60) ng/mL Liver Function 07/28/23 Range/Units 15:19 Total Bilirubin 0.4 (0.2-1.0) mg/dL AST 14 L (15-37) U/L ALT 31 (16-63) U/L Alkaline Phosphatase 85 (46-116) U/L Albumin 3.7 (3.4-5.0) g/dL Progress Note: A&P Assessment and Plan (1) Atrial fibrillation with rapid ventricular response: (2) New onset a-fib: (3) Hypertension: (4) Achilles tendon rupture: Plan Patient examined and evaluated. All findings discussed with patient and all questions answered to patient's satisfaction. Labs and imaging reviewed. This is a 47-year-old male who presented scheduled outpatient surgery for repair of left Achilles tendon rupture. Surgery was uncomplicated with minimal blood loss. During next extubation, he experienced run of V. tach and subsequently A- fib with RVR for about 2 minutes, this was captured on EKG and he was admitted for observation and cardiology consult, who saw patient yesterday evening and recommendations in place. No complications from lower extremity standpoint. Leave LLE splint to CDI. Maintain nonweightbearing to left lower extremity. Use of crutches walker or knee scooter as needed. Pain control Stable for DC from podiatry's perspective once cleared by cards and primary. Follow-up in Dr. Britton's office in 1 week s/p DC. We will follow. Call with questions or concerns.
[2023-07-29 15:51] LABS: SARS-CoV-2 NAA NOT DETECTED (NOT DETECTE)
--- NOTE | 2023-07-30 15:53 | CM.DCFOLLOWU ---
Person spoke with: patient How are you feeling? well How is your pain? was sore yesterday Did you understand your discharge instructions? yes Do you have any questions about your discharge instructions? no Were you given any prescriptions at discharge? yes Were you able to get your prescriptions filled? yes Do you understand how to take your medications as ordered? yes Do you have any questions about your follow up appointment and do you plan to keep your follow up appointment? no questions, yes both follow ups on 08/05/23 Is there anything else that you would like to discuss? no Questions/Comments/Concerns/Other:
== END 2023-07-29 10:24 | disposition home or self-care (01) ==
LOC: SURGOUT 07-29 09:38 → ICU 07-29 09:38
PROVIDERS: Admitting Provider Family Medicine; PCP Family Medicine; Visit Provider Podiatrist Foot & Ankle Surgery
PROC: (CPT 27650; principal; 2023-07-28 10:20)
DX: S86.012A Strain of left Achilles tendon, initial encounter (principal); I48.91 Unspecified atrial fibrillation; I10 Essential (primary) hypertension; E78.5 Hyperlipidemia, unspecified; F17.220 Nicotine dependence, chewing tobacco, uncomplicated; Z79.899 Other long term (current) drug therapy; Z79.82 Long term (current) use of aspirin; X50.9XXA Other and unspecified overexertion or strenuous movements or postures, initial encounter; Z20.822 Contact with and (suspected) exposure to COVID-19
CPT/HCPCS: 27650; 36415; 64445; 64450; 73630; 76942; 80053; 80061; 82550; 82553; 82948; 83036; 83735; 83880; 84443; 84484; 85025; 85610; 85730; 87635; 87811; 93005; 93306; 94761; C1713; C1763; G0378; J1170; J2704; J3370; U0003

== ENCOUNTER 2023-09-08 20:53 | Outpatient (OUT) | payer BC, SELFPAY | END 2023-09-08 20:54 | disposition home or self-care (01) | LOC: SLEEP 20:53 | PROVIDERS: PCP Internal Medicine Cardiovascular Disease; Visit Provider Internal Medicine Cardiovascular Disease | DX: G47.33 Obstructive sleep apnea (adult) (pediatric) (principal) | CPT/HCPCS: 95810 ==

== ENCOUNTER 2023-09-16 09:33 | Outpatient (RCR) | payer OTHER, SELFPAY | END 2023-11-02 08:00 | disposition home or self-care (01) | LOC: PT 09:33 | PROVIDERS: PCP Family Medicine; Visit Provider Podiatrist Foot & Ankle Surgery | DX: Z98.890 Other specified postprocedural states (principal) | CPT/HCPCS: 97110; 97112; 97140; 97162 ==

== ENCOUNTER 2023-10-20 20:52 | Outpatient (OUT) | payer BC, SELFPAY | END 2023-10-20 20:53 | disposition home or self-care (01) | LOC: SLEEP 20:52 | PROVIDERS: PCP Internal Medicine Cardiovascular Disease; Visit Provider Internal Medicine Cardiovascular Disease | DX: G47.33 Obstructive sleep apnea (adult) (pediatric) (principal) | CPT/HCPCS: 95811 ==

== ENCOUNTER 2023-11-03 09:10 | Outpatient (RCR) | payer OTHER, SELFPAY | END 2023-12-11 14:01 | disposition home or self-care (01) | LOC: PT 09:10 | PROVIDERS: PCP Internal Medicine Cardiovascular Disease; Visit Provider Podiatrist Foot & Ankle Surgery | DX: S86.012D Strain of left Achilles tendon, subsequent encounter (principal) | CPT/HCPCS: 97110; 97112; 97113; 97140 ==

== ENCOUNTER 2023-11-07 12:44 | Emergency (ER) | payer BC, SELFPAY ==
[2023-11-07] VITALS (17 sets, daily range): BP systolic 107–136; BP diastolic 69–100; PULSE 79–156; RESP 14–25; TEMP 36.5; O2SAT 95–98; BMI 30.3
--- NOTE | 2023-11-07 13:06 | XR_ITS ---
The [address] [address] Patient Name: GABBI ALLISON MRN: [id number] date: 1975 Sex: M Assigned Patient Location: ER Current Patient Location: ER Accession/Order Number: [id number] Exam Date: 11/07/2023 13:18 Report Date: 11/07/2023 13:39 At the request of: ROSIE CÁRDENAS Procedure: XR chest 1V EXAM: XR chest 1V HISTORY: cp COMPARISON: None. TECHNIQUE: AP portable FINDINGS: LUNGS: No significant pulmonary parenchymal abnormalities. Low lung volumes VASCULATURE: No increased pulmonary vasculature. PLEURA: No pneumothorax, effusion, or pleural thickening. CARDIAC: No cardiomegaly or cardiac silhouette abnormality. MEDIASTINUM: No visible mass or adenopathy. BONES: No fracture or visible bone lesion. OTHER: Negative. XR/XR chest 1V IMPRESSION: Low lung volumes, clear lungs Electronically authenticated by: KEVYN PASTOR Date: 11/07/2023 13:39
--- NOTE | 2023-11-07 13:06 | ECG_ITS ---
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
--- NOTE | 2023-11-07 13:09 | ED_ITS ---
HPI - General Adult General Chief complaint: Chest Pain Stated complaint: fast heart rate Time Seen by Provider: 11/07/23 12:48 Source: patient Mode of arrival: walk-in Limitations: no limitations History of Present Illness HPI narrative: Patient is a 48-year-old male who is presenting to the Emergency Room with chief complaint of Being in A flutter from cardiology office And the heart rate of the 150s. Patient was here in the fall of 2022 and hhad foot surgery. Patient developed atrial fibrillation when he was and postop. Patient had a event monitor in place in the way fall early winter, and it was noted the patient had several episodes of irregular heartbeat. Patient is currently taking Lipitor, Eliquis, lisinopril, metoprolol. Patient is also on Chantix. Patient is taking meetoprolol 50 mg twice a day. Patient currently is asymptomatic. Patient states he feels perfectly fine, does not want to be in the Emergency Rooom at this time. Patient's is at bedside, she is a nurse at Dr. Adamson office. . All systems are negative except as noted/marked. All systems reviewed and otherwise negative. . Nurses note and vital signs reviewed and patient is not hypoxic. General: The patient appears well and in no apparent distress. Patient is resting comfortably on cart. Patient is not toxic, lethargic, or listless Skin: Warm, dry, no pallor noted. There is no rash noted. No petechiae, purpura. Head: Normocephalic, atraumatic Eye: Normal conjunctiva, no drainage, EOMI. PERRL Ears, Nose, Mouth, and Throat: oral mucosa is moist. Nares patent. Mouth without vesicles. Cardiovascular: Tachycardic irregular Regular Rate and Rhythm, no murmur, gallop, rub Respiratory: Patient is in no distress, no accessory muscle use, lungs are clear to auscultation, no wheezing, rales or rhonchi Back: non-tender, GI: soft, Obese,no tenderness to palpation, Musculoskeletal: Patient has full range of motion of all of the extremities, no motor, sensory, or focal neurological deficits Neurological: A&O x3, normal speech Psychiatric: Cooperative Related Data Home Medications Medication Instructions Recorded Confirmed lisinopril 20 mg tablet 20 mg PO DAILY 09/22/23 01/05/24 metoprolol tartrate 25 mg tablet 50 mg PO BID 11/07/23 11/07/23 Previous Rx's Medication Instructions Recorded cefadroxil 500 mg capsule 500 mg PO BID 2 weeks #28 caps 07/28/23 hydrocodone 5 mg-acetaminophen 325 1 tab PO Q6H PRN pain 7 days #28 07/28/23 mg tablet tabs ondansetron 4 mg disintegrating 4 mg PO Q8H PRN nausea and 07/28/23 tablet vomiting 5 days #15 tabs sennosides 8.6 mg tablet (Senna 8.6 mg PO DAILY PRN constipation 7 07/28/23 Laxative) days #7 tabs tizanidine 2 mg capsule 2 mg PO TID PRN muscle spasticity 07/28/23 7 days #21 caps apixaban 5 mg tablet (Eliquis) 5 mg PO BID 30 days #60 tabs 07/29/23 atorvastatin 10 mg tablet (Lipitor) 10 mg PO QPM #30 tabs 07/29/23 Allergies Allergy/AdvReac Type Severity Reaction Status Date / Time No Known Drug Allergies Allergy Verified 07/25/23 12:02 [facility] Medical History Surgical History Family History Other Atrial fibrillation Family history of coronary artery disease Family history of heart disease Social History Within the past year, how often did you have a drink containing alcohol: 2-3 times a week Smoking status: Never smoker Previous occupational history: [employer] Highest level of school completed/degree received: high school graduate Exam Constitutional Vital Signs, click to edit/add: Last Vital Signs Temp 97.7 F 11/07/23 12:48 Pulse 106 H 11/07/23 14:30 Resp 21 11/07/23 14:30 BP 107/73 11/07/23 14:00 Pulse Ox 98 11/07/23 14:30 Course Vital Signs Vital signs: Vital Signs Temperature 97.7 F 11/07/23 12:48 Pulse Rate 155 H 01/05/24 12:48 Respiratory Rate 18 11/07/23 12:48 Blood Pressure 136/94 H 11/07/23 12:48 Pulse Oximetry 96 11/07/23 12:48 Temperature 97.7 F 11/07/23 12:48 Pulse Rate 106 H 11/07/23 14:30 Respiratory Rate 21 11/07/23 14:30 Blood Pressure 107/73 11/07/23 14:00 Pulse Oximetry 98 11/07/23 14:30 Medical Decision Making MDM Narrative Medical decision making narrative: When patient presented, he was in most likely atrial flutter. I spoke to the solar energy installation manager on the phone when patient arrived to the Emergency Room, Dr. Muller, if patient's heart rate could be lowered, it is recommended that patient could be placed on either 75 or 100 mg of metoprolol twice a day increase from his 50 mg twice a day. If patient heart rate cannot be controllled, patient should be admitted to the hospital for possible cardioversion or ablation. Patient was given 1 L of IV fluids. Patient was given Cardizem 20 mg which helped decrease his heart rate. Patient has maintain a heart rate in the 80s to low 100s. Patient does not want to be admitted to the hospital. Patient wants to go home. Patient's sodium level was slightly low. Patient says that he does drink a lot of water every day. He does like to drink propel. Patient will increase propel to help with sodium intake. Patient will follow-up with cardiology. Patient is not taking his blood pressure heart rate at home at all. Patient does have a way to check his blood pressure and heart rate at home with his who is a nurse. Patient will start monitoring his vital signs more closely at home. After discussion at bedside with patient and ,Patient will start taking 75 mg of metoprolol twice a day and continue to monitor his heart rate, if patient's heart rate consistently remains elevated above 100, he will increase the metoprolol to 100 mg twice a day. Patient will follow-up with cardiology office as indicated. Patient understands of his heart rate is above 120 consiste ntly and not improving with medication, patient needs to return back to the Emergency Room for reevaluation. Patient understannds this, no questions at discharge Lab Data Lab results reviewed: Yes I reviewed the patient's lab results Labs: Lab Results 11/07/23 11/07/23 Range/Units 12:55 13:33 WBC 9.3 (4.0-11.0) 10^3/uL RBC 4.94 (4.70-6.10) 10^6/uL Hgb 14.2 (14.0-18.0) g/dL Hct 43.1 (42.0-54.0) % MCV 87.2 (80.0-94.0) fL MCH 28.7 (25.9-34.0) pg MCHC 32.9 (29.9-35.2) g/dL RDW 12.4 (11.0-15.0) % Plt Count 220 (150-450) 10^3/uL MPV 11.4 (9.5-13.5) fL Neut % (Auto) 54.1 (43.0-75.0) % Lymph % (Auto) 36.6 (20.5-60.0) % [place] % (Auto) 7.2 (1.7-12.0) % Eos % (Auto) 1.5 (0.9-7.0) % Baso % (Auto) 0.5 (0.2-2.0) % Neut # (Auto) 5.1 (1.4-6.5) 10^3/uL Lymph # (Auto) 3.4 (1.2-3.8) 10^3/uL [place] # (Auto) 0.7 (0.3-0.8) 10^3/uL Eos # (Auto) 0.1 (0.0-0.7) 10^3/uL Baso # (Auto) 0.1 (0.0-0.1) 10^3/uL Abs Immat Gran (auto) 0.01 (0.00-0.03) 10^3/uL Imm/Tot Granulo (auto) 0.1 (0.0-0.5) % Sodium 132 L (136-145) mmol/L Potassium 3.7 (3.5-5.1) mmol/L Chloride 99 (98-107) mmol/L Carbon Dioxide 28.5 (21.0-32.0) mmol/L Anion Gap 8.2 BUN 16.0 (7.0-18.0) mg/dL Creatinine 0.90 (0.70-1.30) mg/dL Est GFR ( Amer) >60 (>=60) Est GFR (Non-Af Amer) >60 (>=60) BUN/Creatinine Ratio 17.8 Glucose 142 H (74-106) mg/dL Calcium 9.3 (8.5-10.1) mg/dL Troponin I High Sens 6.8 (4.0-76.1) pg/mL NT-Pro-B Natriuret Pep 917.0 H (<=900.0) pg/mL Lipase 37.0 (16.0-77.0) U/L Urine Color Lt. yellow (YELLOW) Urine Clarity Clear (CLEAR) Urine pH 6.5 (5.0-9.0) Ur Specific [place] <=1.005 A (1.005-1.025) Urine Protein Negative (NEG/TRACE) mg/dL Urine Glucose (UA) Negative (NEGATIVE) mg/dL Urine Ketones Negative (NEGATIVE) mg/dL Urine Occult Blood Negative (NEGATIVE) Urine Nitrite Negative (NEGATIVE) Urine Bilirubin Negative (NEGATIVE) Urine Urobilinogen 0.2 (0.2-1.0) EU/dL Ur Leukocyte Esterase Negative (NEGATIVE) ECG Data Attestation: I personally reviewed and interpreted this ECG as follows: (EKG #1. Tachycardic rhythm at 155, normal axis deviation. Possible atrial flutter. QTC of 441. Nonspecific ST changes diffusely.) Interpretation: EKG #2. Irregular irregular at 82 beats a minute. Patient is in a 4-1 atrial flutter. QTC of 434. Heart rate has slowed. Discharge Plan Discharge Chief Complaint: Chest Pain Clinical Impression: Atrial flutter, Hyponatremia Patient Disposition: Home, Self-Care Condition: Fair Prescriptions / Home Meds: No Action lisinopril 20 mg tablet 20 mg PO DAILY hydrocodone-acetaminophen 5-325 mg tablet 1 tab PO Q6H PRN (Reason: pain) 7 Days Qty: 28 0RF cefadroxil 500 mg capsule 500 mg PO BID 14 Days Qty: 28 0RF Hold Instructions: dc ondansetron 4 mg tablet,disintegrating 4 mg PO Q8H PRN (Reason: nausea and vomiting) 5 Days Qty: 15 0RF sennosides [Senna Laxative] 8.6 mg tablet 8.6 mg PO DAILY PRN (Reason: constipation) 7 Days Qty: 7 0RF tizanidine 2 mg capsule 2 mg PO TID PRN (Reason: muscle spasticity) 7 Days Qty: 21 0RF Eliquis 5 mg Tablet 5 mg PO BID 30 Days Qty: 60 0RF atorvastatin [Lipitor] 10 mg tablet 10 mg PO QPM Qty: 30 0RF metoprolol tartrate 25 mg Tablet 50 mg PO BID Instructions: Atrial Flutter (ED), Hyponatremia (ED) Additional Instructions: Increase her metoprolol from 50 mg twice a day to 100 mg twice a day. Follow-up with the solar energy installation manager. His symptoms continue, you may need to have cardioversion or ablation. Start taking her blood pressure near heart rate 2 or 3 times a day to have closer monitoring of her heart rate. Continue taking medications as prescribed. Stand Alone Forms: Portal Instructions Referrals: SIOBHAN MAX [Physician] - 1 week Discharge Date/Time: 11/07/23 14:43
[2023-11-07 13:19] LABS: Basophils Absolute Auto 0.1 10^3/uL (0.0-0.1); Basophils Percent Auto 0.5 % (0.2-2.0); Eosinophils Absolute Auto 0.1 10^3/uL (0.0-0.7); Eosinophils Percent Auto 1.5 % (0.9-7.0); Hematocrit 43.1 % (42.0-54.0); Hemoglobin 14.2 g/dL (14.0-18.0); Immature Granulocytes Abs Auto 0.01 10^3/uL (0.00-0.03); Immature Granulocytes Pct Auto 0.1 % (0.0-0.5); Lymphocytes Absolute Auto 3.4 10^3/uL (1.2-3.8); Lymphocytes Percent Auto 36.6 % (20.5-60.0); Mean Corpuscular HGB Conc 32.9 g/dL (29.9-35.2); Mean Corpuscular Hemoglobin 28.7 pg (25.9-34.0); Mean Corpuscular Volume 87.2 fL (80.0-94.0); Mean Platelet Volume 11.4 fL (9.5-13.5); Monocytes Absolute Auto 0.7 10^3/uL (0.3-0.8); Monocytes Percent Auto 7.2 % (1.7-12.0); Neutrophils Absolute Auto 5.1 10^3/uL (1.4-6.5); Neutrophils Percent Auto 54.1 % (43.0-75.0); Platelet Count 220 10^3/uL (150-450); Red Blood Count 4.94 10^6/uL (4.70-6.10); Red Cell Distribution Width 12.4 % (11.0-15.0); White Blood Count 9.3 10^3/uL (4.0-11.0)
[2023-11-07] MEDS: DILTIAZEM HCL 25 MG/5 ML VIAL 20 MG IV (13:29)
[2023-11-07] MEDS: 0.9 % SODIUM CHLORIDE 1,000 ML 1000 ML IV (13:30)
[2023-11-07 13:40] LABS: Anion Gap 8.2; BUN Creatinine Ratio 17.8; Calcium 9.3 mg/dL (8.5-10.1); Carbon Dioxide 28.5 mmol/L (21.0-32.0); Chloride 99 mmol/L (98-107); Estimated GFR (African America >60 (>=60); Estimated GFR (Non-African Ame >60 (>=60); Glucose 142 mg/dL (74-106); Potassium 3.7 mmol/L (3.5-5.1); Sodium 132 mmol/L (136-145); Troponin I High Sensitivity 6.8 pg/mL (4.0-76.1)
[2023-11-07 13:46] LABS: Bilirubin Urine NEGATIVE (NEGATIVE); Blood Urine NEGATIVE (NEGATIVE); Clarity Urine CLEAR (CLEAR); Color Urine LT. YELLOW (YELLOW); Glucose Urine UA NEGATIVE (NEGATIVE); Ketones Urine NEGATIVE (NEGATIVE); Leukocyte Esterase Urine NEGATIVE (NEGATIVE); Nitrite Urine NEGATIVE (NEGATIVE); Protein Urine NEGATIVE (NEG/TRACE); Specific Gravity Urine <=1.005 (1.005-1.025); Urine Microscopic Indicated NO; Urobilinogen Urine 0.2 EU/dL (0.2-1.0); pH Urine 6.5 (5.0-9.0)
--- OUTSIDE RECORDS SUMMARY | 2023-11-07 13:57 | XMS_ITS | CCD ---
Author Name Unknown Address [address] [place] [address] Organization [facility] Care Team Providers Care Engineering Technical Analyst Name Role Phone NAOMI RUBIO Unavailable Unavailable NAOMI RUBIO Unavailable Unavailable REQUEST, NONE LISTED Unavailable Unavailable NAOMI RUBIO Unavailable Unavailable LILLI PALOMARES Unavailable Unavailable LILLI PALOMARES Unavailable Unavailable SELENA ODONNELL Unavailable Unavailable LILLI PALOMARES Unavailable Unavailable JASPAL BALBUENA Unavailable Unavailable Riya Hidalgo Attending Provider [phone] Selena Odonnell Primary Care Provider [phone] Indigo Beal Unavailable SIOBHAN MAX Attending Unavailable Medications Current Medications Medication Drug Class(es) Dates Sig (Normalized) Sig (Original) amLODIPine Benzoate (1 source) amLODIPine Benzoate Active cephalexin 500 mg oral tablet (1 source) Cephalosporin Antibacterial Start: 01-02-2022 take 1 tablet by mouth every twelve hours Cephalexin 500 MG 1 tablet Orally every 12 hrs for 10 day(s) Jan, Active Fish Oils (1 source) Fish Oil Active Lisinopril (1 source) Angiotensin Converting Enzyme Inhibitor Lisinopril Active mupirocin 0.02 mg/mg topical ointment (1 source) RNA Synthetase Inhibitor Antibacterial Start: 01-02-2022 Mupirocin 2 % 1 application Externally Three times a day for 7 days Jan, Active Completed/Discontinued Medications Medication Drug Class(es) Dates Sig (Normalized) Sig (Original) fluticasone propionate 0.05 mg/actuat metered dose nasal spray (1 source) Corticosteroid Start: 05-05-2018 take 2 spray(s) nasal route once daily Fluticasone Propionate 50 MCG/ACT 2 sprays in each nostril Nasally Once a day for 14 days May, Not-Taking Triamcinolone (1 source) Corticosteroid Start: 09-08-2016 KENALOG - 10 mg Sep, 40 mg Problems Active Problems Problem Classification Problem Date Documented Da te Episodic/Chronic Cardiac dysrhythmias (2 sources) Paroxysmal atrial fibrillation; Translations: [Paroxysmal atrial fibrillation] Onset: 08-05-2023 Chronic Conditions associated with dizziness or vertigo (5 sources) Dizziness and giddiness; Translations: [Labyrinthitis, unspecified ear] Onset: 03-28-2018 Episodic Other upper respiratory infections (1 source) Inflammatory disorder of upper respiratory tract; Translations: [Chronic sinusitis, unspecified] Chronic Past or Other Problems Problem Classification Problem Date Documented Da te Episodic/Chronic Other aftercare (1 source) Encounter for removal of sutures Onset: 01-13-2022 Resolved: 01-13-2022 Episodic Results Test Name Value Interpretation Reference Range Facil ity CT HEAD WO CONon 03-29-2018 CT HEAD WO CON [address] [place] [address] Patient: GABBI ALLISON Exam Date: 03/28/2018DOB: 1975 Gender:M : DR LILLI PALOMARES Admission #: [id number] : Order #: [id number] HERE TO VIEW EXAM RADIOLOGY REPORT PROCEDURE: CT HEAD WITHOUT CONTRAST COMPARISON: None. INDICATIONS: Acute dizziness for three days TECHNIQUE: Axial CT images were obtained without IV contrast. DOSE: 1336mGycm FINDINGS: BRAIN: No edema, hemorrhage, mass, acute infarction, or inappropriate atrophy. CSF SPACES: No hydrocephalus, subarachnoid hemorrhage, or mass. Appropriate for age. SKULL: No fracture, mass, or other significant visible lesion. SINUSES: No significant mucosal thickening or fluid on the limited views. ORBITS: No appreciable abnormality on the limited views. OTHER: Negative CONCLUSION: Normal examination. Dictated by: Jaspal Balbuena M.D. on 03/28/2018 at 22:54 Approved by: Jaspal Balbuena M.D. on 03/28/2018 at 23:03 Normal [facility] CBC AUTO DIFFon 03-28-2018 Basophils Auto #/vol (Bld) 0.0 103/ul Normal 0.0-0.1 [facility] Comment on above: Performed By: #### C BC ####[facility] [address] [place] [phone] Cristiane Basophils/100 WBC Auto (Bld) 0.4 % Normal 0.2-2.0 [facility] Comment on above: Performed By: #### C BC ####[facility] Zkfbzfsowe9993 [place] [phone] Cristiane Eosinophils 0.1 103/ul Normal 0.0-0.7 [facility] Comment on above: Performed By: #### C BC ####[facility] Gbkvjzwfjw9257 [address] Cristiane Eosinophils/100 leukocytes 1.1 % Normal 0.9-7.0 [facility] Comment on above: Performed By: #### C BC ####[facility] [address] [place], [place] [address]Gerken Cristiane Erythrocyte distribution width Auto Ratio (RBC) 11.9 % Normal 11.0-15.0 [facility] Comment on above: Performed By: #### C BC ####[facility] Q[address] [place], [place] [address]Gerken Cristiane Erythrocytes (RBC) 5.40 106/ul Normal 4.70-6.10 [facility] Comment on above: Performed By: #### C BC ####[facility] Itfrmyfcry[address] [place], [place] [address]Gerken Cristiane Hematocrit (HCT) 45.6 % Normal 42.0-54.0 [facility] Comment on above: Performed By: #### C BC ####[facility] Xfoixiipnw3573 [place] [phone] Cristiane Hemoglobin mass conc (Bld) 15.7 g/dL Normal 14.0-18.0 [facility] Comment on above: Performed By: #### C BC ####[facility] Lndirzaxnn6122 [place] [phone] Cristiane IG # 0.02 10e3/ul Normal 0.00-0.03 [facility] Comment on above: Performed By: #### C BC ####[facility] Ozeximktqz1422 [address] Cristiane IG % 0.3 % Normal 0.0-0.5 [facility] Comment on above: Performed By: #### C BC ####[facility] Kmhmqmtonq5280 [address] Cristiane Lymphocytes 3.1 103/ul Normal 1.2-3.8 [facility] Comment on above: Performed By: #### C BC ####[facility] Vxjvbcfbky7745 [address] Cristiane Lymphocytes/100 leukocytes 41.2 % Normal 20.5-60.0 [facility] Comment on above: Performed By: #### C BC ####[facility] [address] [place] [address] Cristiane MANUAL DIFF REQ NO Normal [facility] Comment on above: Performed By: #### C BC ####[facility] [address] [place] [address] Cristiane MCH 29.1 pg Normal 25.9-34.0 [facility] Comment on above: Performed By: #### C BC ####[facility] [address]av[address] [place] [address] Cristiane MCHC mass conc (RBC) 34.4 g/dL Normal 29.9-35.2 [facility] Comment on above: Performed By: #### C BC ####[facility] [address] [place] [address] Cristiane MCV 84.4 fL Normal 80.0-94.0 [facility] Comment on above: Performed By: #### C BC ####[facility] C[address]re[address] [place] [address] Cristiane Monocytes 0.5 103/ul Normal 0.3-0.8 [facility] Comment on above: Performed By: #### C BC ####[facility] [address] [place] [address] Cristiane Monocytes/100 leukocytes 6.9 % Normal 1.7-12.0 [facility] Comment on above: Performed By: #### C BC ####[facility] [address]etfll[address]22[address] [place], [place] [address]Yiyeus Cristiane Neutrophils 3.8 103/ul Normal 1.4-6.5 [facility] Comment on above: Performed By: #### C BC ####[facility] Drguzcflva7002 [place], [place] [address]Sxtoeu Cristiane Neutrophils/100 WBC Auto (Bld) 50.1 % Normal 43.0-75.0 [facility] Comment on above: Performed By: #### C BC ####[facility] Plwozqabpg7832 [place], [place] [address]Suhpsh Cristiane Platelet mean volume (PMV) 10.8 fL Normal 9.5-13.5 [facility] Comment on above: Performed By: #### C BC ####[facility] Kalprhmphg4486 [place], [place] [address]Ahohqw Cristiane Platelets 232 103/ul Normal 150-450 [facility] Comment on above: Performed By: #### C BC ####[facility] Veulweehzm9682 [place], [place] [address]Cfszva Cristiane WBC (Leukocytes) 7.5 103/ul Normal 4.0-11.0 [facility] Comment on above: Performed By: #### C BC ####[facility] Vgcfidzpfr0466 [place] [phone] Cristiane PROF 14(COMP METB)on 018 Alanine aminotransferase (ALT) 49 U/L Normal 21-72 [facility] Comment on above: Performed By: #### C MP ####[facility] Jfqtmuvigq4540 [place], [place] [address]Hygfqn Cristiane Albumin 4.7 g/dL Normal 3.5-5.0 [facility] Comment on above: Performed By: #### C MP ####[facility] Mirqtgnmdm4162 [place] [phone] Cristiane Albumin/Globulin Ratio 1.6 {ratio} Normal T [facility] Comment on above: Performed By: #### C MP ####[facility] Rtcuxlavgb3237 [place] [phone] Cristiane Alkaline phosphatase (ALP) 97 U/L Normal 38-126 [facility] Comment on above: Performed By: #### C MP ####[facility] [address] [place], [place] [address]Gerken Cristiane Anion gap 13.1 mmol/L Normal [facility] Comment on above: Performed By: #### C MP ####[facility] [address]bwjoo[address] [place] [address] Cristiane Aspartate aminotransferase (AST) 29 U/L Normal 17-59 [facility] Comment on above: Performed By: #### C MP ####[facility] [address] [place] [address] Cristiane Bilirubin Ql (U) 0.8 mg/dL Normal 0.2-1.3 [facility] Comment on above: Performed By: #### C MP ####[facility] [address]xf[address] [place] [address] Cristiane BUN/Creatinine Ratio 20.2 mg/mg Normal [facility] Comment on above: Performed By: #### C MP ####[facility] [address] [place] [address] Cristiane Calcium 9.9 mg/dL Normal 8.4-10.2 [facility] Comment on above: Performed By: #### C MP ####[facility] Am[address] [place] [address] Cristiane Chloride 101 mmol/L Normal 98-107 [facility] Comment on above: Performed By: #### C MP ####[facility] [address] [place], [place] [address]Gerken Cristiane CO2 24.0 mmol/L Normal 22.0-30.0 [facility] Comment on above: Performed By: #### C MP ####[facility] [address] [place] [address] Cristiane Creatinine 0.80 mg/dL Normal 0.66-1.25 [facility] Comment on above: Performed By: #### C MP ####[facility] Axvdvuhggb3081 [place] [phone] Cristiane eGFR (non-black) mL/min/{1.73_m2} Normal >=60 [facility] Comment on above: Performed By: #### C MP ####[facility] Cnqbeiibna4405 [place] [phone] Cristiane Globulin 3.0 g/dL Normal [facility] Comment on above: Performed By: #### C MP ####[facility] Twjltifunx3495 [place] [phone] Cristiane Glucose mass conc 154 mg/dL Critically high 74-106 [facility] Comment on above: Performed By: #### C MP ####[facility] [address] [place] [address] Cristiane Potassium molar conc 3.7 mmol/L Normal 3.4-5.0 [facility] Comment on above: Performed By: #### C MP ####[facility] [address]ls[address] [place] [address] Cristiane Protein 7.6 g/dL Normal 6.1-8.2 [facility] Comment on above: Performed By: #### C MP ####[facility] [address] [place] [address] Cristiane Sodium 134 mmol/L Critically low 137-145 [facility] Comment on above: Performed By: #### C MP ####[facility] [address] [place] [address] Cristiane Urea nitrogen 16.0 mg/dL Normal 9.0-20.0 [facility] Comment on above: Performed By: #### C MP ####[facility] [address] [place] [address] Cristiane CBC AUTO DIFFon 03-27-2018 Basophils Auto #/vol (Bld) 0.0 103/ul Normal 0.0-0.1 [facility] Comment on above: Performed By: #### C BC ####[facility] Ylceogofnx8733 [address] Cristiane Basophils/100 WBC Auto (Bld) 0.5 % Normal 0.2-2.0 [facility] Comment on above: Performed By: #### C BC ####[facility] [address] [place] [address] Cristiane Eosinophils 0.1 103/ul Normal 0.0-0.7 [facility] Comment on above: Performed By: #### C BC ####[facility] [address]ff[address] [place] [address] Cristiane Eosinophils/100 leukocytes 0.8 % Critically low 0.9-7.0 [facility] Comment on above: Performed By: #### C BC ####[facility] [address] [place] [address] Cristiane Erythrocyte distribution width Auto Ratio (RBC) 11.9 % Normal 11.0-15.0 [facility] Comment on above: Performed By: #### C BC ####[facility] [address]ozbvzzpo[address] [place] [address] Cristiane Erythrocytes (RBC) 5.42 106/ul Normal 4.70-6.10 [facility] Comment on above: Performed By: #### C BC ####[facility] [address] [place] [address] Cristiane Hematocrit (HCT) 46.0 % Normal 42.0-54.0 [facility] Comment on above: Performed By: #### C BC ####[facility] [address]leevt[address] [place] [address] Cristiane Hemoglobin mass conc (Bld) 15.6 g/dL Normal 14.0-18.0 [facility] Comment on above: Performed By: #### C BC ####[facility] Zwbicqnwax[address] [place] [address] Cristiane IG # 0.02 10e3/ul Normal 0.00-0.03 [facility] Comment on above: Performed By: #### C BC ####[facility] [address]tsxxszktd[address] [place] [address] Cristiane IG % 0.3 % Normal 0.0-0.5 [facility] Comment on above: Performed By: #### C BC ####[facility] Vuzzkqooxo6331 [place] [address] Cristiane Lymphocytes 1.8 103/ul Normal 1.2-3.8 [facility] Comment on above: Performed By: #### C BC ####[facility] Ttdqysqipg2087 [place] [address] Cristiane Lymphocytes/100 leukocytes 29.5 % Normal 20.5-60.0 [facility] Comment on above: Performed By: #### C BC ####[facility] [address] [place] [address] Cristiane MANUAL DIFF REQ NO Normal [facility] Comment on above: Performed By: #### C BC ####[facility] [address]ytj[address] [place], [place] [address]Gerken Cristiane MCH 28.8 pg Normal 25.9-34.0 [facility] Comment on above: Performed By: #### C BC ####[facility] F[address]ayuxfkko[address] [place], [place] [address]Gerken Cristiane MCHC mass conc (RBC) 33.9 g/dL Normal 29.9-35.2 [facility] Comment on above: Performed By: #### C BC ####[facility] Xcthgttcoa[address] [place], [place] [address]Gerken Cristiane MCV 84.9 fL Normal 80.0-94.0 [facility] Comment on above: Performed By: #### C BC ####[facility] Jocoopypor8233 [place] [phone] Cristiane Monocytes 0.4 103/ul Normal 0.3-0.8 [facility] Comment on above: Performed By: #### C BC ####[facility] Xjaxzbjinn[address] [place] [address] Cristiane Monocytes/100 leukocytes 6.4 % Normal 1.7-12.0 [facility] Comment on above: Performed By: #### C BC ####[facility] Dnbprrdglu1082 [place], [place] [address]Vjmqnr Karen Neutrophils 3.9 103/ul Normal 1.4-6.5 [facility] Comment on above: Performed By: #### C BC ####[facility] Rkgpcvxkfh0610 [place], [place] [address]Twvkph Karen Neutrophils/100 WBC Auto (Bld) 62.5 % Normal 43.0-75.0 [facility] Comment on above: Performed By: #### C BC ####[facility] Ormjfsvsja5467 [place], [place] [address]Jlgcmx Karen Platelet mean volume (PMV) 10.8 fL Normal 9.5-13.5 [facility] Comment on above: Performed By: #### C BC ####[facility] Ekpysivoiv[address] [place], [place] [address]Gernoah Sauer Platelets 217 103/ul Normal 150-450 [facility] Comment on above: Performed By: #### C BC ####[facility] [address] [place] [address]Qkatpo Cristiane WBC (Leukocytes) 6.2 103/ul Normal 4.0-11.0 [facility] Comment on above: Performed By: #### C BC ####[facility] Prfpdvjyjb[address] [place], [place] [address]Gerken Cristiane PROF 14(COMP METB)on 018 Alanine aminotransferase (ALT) 45 U/L Normal 21-72 [facility] Comment on above: Performed By: #### C MP ####[facility] [address]vb[address] [place] [address]Mmjppm Karen Albumin 4.9 g/dL Normal 3.5-5.0 [facility] Comment on above: Performed By: #### C MP ####[facility] [address]chmhxsap[address] [place], [place] [address]Gerken Cristiane Albumin/Globulin Ratio 1.7 {ratio} Normal T [facility] Comment on above: Performed By: #### C MP ####[facility] [address]eyq[address]rotp[address] [place], [place] [address]Gerken Cristiane Alkaline phosphatase (ALP) 101 U/L Normal 38-126 [facility] Comment on above: Performed By: #### C MP ####[facility] Mwzskexlem5504 [address] Cristiane Anion gap 12.9 mmol/L Normal [facility] Comment on above: Performed By: #### C MP ####[facility] Pkevsetrlu4838 [place] [phone] Cristiane Aspartate aminotransferase (AST) 29 U/L Normal 17-59 [facility] Comment on above: Performed By: #### C MP ####[facility] [address] [place] [address] Cristiane Bilirubin Ql (U) 1.1 mg/dL Normal 0.2-1.3 [facility] Comment on above: Performed By: #### C MP ####[facility] Mzddheviog[address] [place] [address] Cristiane BUN/Creatinine Ratio 21.3 mg/mg Normal [facility] Comment on above: Performed By: #### C MP ####[facility] [address]ju[address]ob[address] [place] [address] Cristiane Calcium 10.3 mg/dL Critically high 8.4-10.2 [facility] Comment on above: Performed By: #### C MP ####[facility] Ensw[address]zh[address] [place] [address] Cristiane Chloride 100 mmol/L Normal 98-107 [facility] Comment on above: Performed By: #### C MP ####[facility] Xfpgrdegtc[address] [place], [place] [address]Gerken Cristiane CO2 26.0 mmol/L Normal 22.0-30.0 [facility] Comment on above: Performed By: #### C MP ####[facility] [address]wp[address] [place] [address] Cristiane Creatinine 0.72 mg/dL Normal 0.66-1.25 [facility] Comment on above: Performed By: #### C MP ####[facility] [address] [place] [address] Cristiane eGFR (non-black) mL/min/{1.73_m2} Normal >=60 [facility] Comment on above: Performed By: #### C MP ####[facility] Wvdslmzzrd0302 [place] [address]Ger[place] Cristiane Globulin 2.9 g/dL Normal [facility] Comment on above: Performed By: #### C MP ####[facility] Vkalgtefuv5083 [place] [address]Gerken Cristinae Glucose mass conc 107 mg/dL Critically high 74-106 [facility] Comment on above: Performed By: #### C MP ####[facility] [address]klpsno[address]75 [address] Cristiane Potassium molar conc 4.1 mmol/L Normal 3.4-5.0 [facility] Comment on above: Performed By: #### C MP ####[facility] Xmtutgdhka95[address] [place] [address]Ger[address] Cristiane Protein 7.8 g/dL Normal 6.1-8.2 [facility] Comment on above: Performed By: #### C MP ####[facility] [address]38 [address] Cristiane Sodium 135 mmol/L Critically low 137-145 [facility] Comment on above: Performed By: #### C MP ####[facility] [address]wkbptlt6780 [place] [address]Gerken Cristiane Urea nitrogen 15.0 mg/dL Normal 9.0-20.0 [facility] Comment on above: Performed By: #### C MP ####[facility] Sfopmtmxza8023 [place], [place] [address]Tijgsz Cristiane Encounters Encounter Date Encounter Type Care Provider Facility Start: 08-05-2023 End: 08-05-2023 ambulatory SIOBHAN MAX [facility] Start: 01-13-2022 End: 01-13-2022 ambulatory Indigo Beal Other [facility] Other Start: 01-13-2022 Office outpatient visit 5 minutes Idnigo Beal [facility] Start: 02-16-2021 End: 02-16-2021 Discharged Recurring Riya Hidalgo Work Phone: [facility] Vacc[facility] Off Site Start: 03-28-2018 End: 03-29-2018 Ambulatory LILLI PALOMARES Facility:[facility] Start: 03-27-2018 End: 03-27-2018 Ambulatory NAOMI RUBIO Facility:[facility] Immunizations Immunization Date Immunization Notes Care Provider Fa cility 01-02-2022 tetanus toxoid, reduced diphtheria toxoid, and acellular pertussis vaccine, adsorbed Indigo Beal Other [facility] Other 02-16-2021 COVID-19 mRNA,OJD386 b2 (Pfizer) Riya Hidalgo Work Phone: [facility] 01-23-2021 COVID-19 mRNA,[id number] b2 (Pfizer) Riya Hidalgo Work Phone: [facility] Payers Date Payer Category Payer Unknown [id number] 1961 Unknown [id number] Self-pay Self Pay [id number] Social History Date Type Detail Facility Tobacco smoking status NHIS Unknown if ever smoked [facility] Start: 1975 Sex Assigned At Male F [facility] Sex Assigned At Sex Assigned At Bir th [facility] Other Goals Date Patient Goal Desired Activity /State Progress note 08-05-2023 Note Date & Type Note Facility 08-05-2023 Note Patient here for fol [facility] for afib w/ RVR s/p ankle surgery. He was started on Eliquis and metoprolol, and amlodipine was stopped. Seen as inpatient consult by Dr. Max on 07/28. He denies chest pain, SOB, palpitations, and bleeding on Eliquis. Review of Systems Respiratory: Positive for snoring. All other systems reviewed and are negative. [facility] Evaluation note 01-13-2022 Note Date & Type Note Facility 01-13-2022 Evaluation note Encounter Date Diagnosis Assessment Notes Jan, Encounter for removal of sutures (ICD-10 - Z48.02) sutures were removed without incident [facility] Other Evaluation note Note Date & Type Note Facility Evaluation note No Assessments Information Avail able [facility] History general Narrative - Reported Note Date & Type Note Facility History general Narrative - Reported Type Medical History HTN Surgical History left knee arthroscopy Hospitalization History see above [facility] Other Summary Purpose Family History No Family History Records FoundNo Family History Records Found Advance Directives No Advanced Directives Records Found Advance Directive Response Recorded Date/ Time Advance Directives No January 17 7:34pm Chief Complaint and Reason for Visit Chief Complaint vaccine ins Additional Source Comments (unrecognized sect ion and content) No Status Records FoundNo Status Records Found INFORMATION SOURCE (unrecogn ized section and content) DATE CREATED AUTHOR 04/22/2018 [facility] DATE CREATED AUTHOR AUTHOR'S ORGANIZ ATION 08/09/2023 [facility] REASON FOR VISIT (unrecogniz ed section and content) SUTURE REMOVAL, 11 DAYS AGO FOR RECORDS PERTAINING TO PATIENTS WHO ARE OR HAVE BEEN ENROLLED IN A CHEMICAL DEPENDENCY/SUBSTANCEABUSE PROGRAM, SOME INFORMATION MAY BE OMITTED. This clinical summary was aggregated from multiple sources. Caution should be exercised in using it in the provision of clinical care. This summary normalizes information from multiple sources, and as a consequence, information in this document may materially change the coding, format and clinical context of patient data. In addition, data may be omitted in some cases. CLINICAL DECISIONS SHOULD BE BASED ON THE PRIMARY CLINICAL RECORDS. [facility] [employer] provides no warranty or guarantee of the accuracy or completeness of information in this document.
--- NOTE | 2023-11-07 14:53 | ECG_ITS ---
[facility] Test Date: 2023-11-07 Pat Name: GABBI ALLISON Department: Room: - Gender: Male [employer]: : 1975 Requested By: [id number] Order Number: [id number] Reading MD: EULALIO CACERES Measurements Intervals [place] Rate: 82 P: -77179 NC: -90803 QRS: 80 QRSD: 106 T: 52 QT: 396 QTc: 434 Interpretive Statements 1250 Atrial flutter 4664 Twave abnormality, possible inferolateral ischemia 9150 abnormal ECG Electronically Signed On 11-09-2023 11:28:45 EST by EULALIO CACERES
== END 2023-11-07 14:43 | disposition home or self-care (01) ==
PROVIDERS: Emergency Provider Emergency Medicine
DX: I48.92 Unspecified atrial flutter (principal); E87.1 Hypo-osmolality and hyponatremia; Z79.01 Long term (current) use of anticoagulants; Z79.899 Other long term (current) drug therapy; E66.9 Obesity, unspecified; Z68.30 Body mass index [BMI] 30.0-30.9, adult
CPT/HCPCS: 36415; 71045; 80048; 81003; 83690; 83880; 84484; 85025; 93005; 96374; 99285

== ENCOUNTER 2023-12-13 08:07 | Outpatient (OUT) | payer BC, SELFPAY ==
--- OUTSIDE RECORDS SUMMARY | 2023-12-13 08:12 | XMS_ITS | CCD ---
Author Name Unknown Address [address] [place] [address] Organization [facility] Care Team Providers Care Rubber Liner Name Role Phone NAOMI RUBIO Unavailable Unavailable NAOMI RUBIO Unavailable Unavailable REQUEST, NONE LISTED Unavailable Unavailable NAOMI RUBIO Unavailable Unavailable LILLI PALOMARES Unavailable Unavailable LILLI PALOMARES Unavailable Unavailable SELENA ODONNELL Unavailable Unavailable LILLI PALOMARES Unavailable Unavailable JASPAL BALBUENA Unavailable Unavailable Riya Hidalgo Attending Provider [phone] Selena Odonnell Primary Care Provider Indigo Beal Unavailable AMANDA DOHERTY Attending Unavailable ANALISA RAMAN Attending Unavailable SIOBHAN DICKERSON Attending Unavailable SIOBHAN DICKERSON Attending Unavailable BYRON BASSETT Attending Unavailable Medications Current Medications Medication Drug [...] Date Documented Da te Episodic/Chronic Cardiac dysrhythmias (6 sources) Unspecified atrial flutter; Translations: [Typical atrial flutter] Onset: 11-12-2023 Chronic Conditions associated with dizziness or vertigo [...] Results Test Name Value Interpretation Reference Range Facility Orders Onlyon 12-11-2023 Orders Only [id number] Tio Allison 1975 Date Provider Department Center 12/11/2023 KEITH GUZMÁN [facility] [place] [facility] Family History Problem Relation Age of Onset Atrial fibrillation Father Coronary artery disease Father Family Status - Relation Status Age at Father Normal [facility] Letter (Out)on 12-02-2023 Letter (Out) [id number] Tio Allison 1975 Provider Department Center 12/02/2023 None-None [facility] [place] [facility] Family History Problem Relation Age of Onset Atrial fibrillation Father Coronary artery disease Father Family Status - Relation Status Age at Father Normal [facility] Prep for Procedureon 024 Prep for Procedure [id number] Tio Allison 1975 Date Provider Department Center 12/02/2023 R[place] REED [facility] Family History Problem Relation Age of Onset Atrial fibrillation Father Coronary artery disease Father Family Status - Relation Status Age at Father Normal [facility] Orders Onlyon 11-18-2023 Orders Only [id number] Tio Allison 1975 Date Provider Department Center 11/18/2023 895-DOM MCKEON KAREN [facility] Family History Problem Relation Age of Onset Atrial fibrillation Father Coronary artery disease Father Family Status - Relation Status Age at Father Normal [facility] Telemedicineon 11-18-2023 Telemedicine [id number] Tio Allison Luiz 1975 M Date Provider Department Center 11/18/2023 Colin-BYRON BASSETT KAREN [facility] Family History Problem Relation Age of Onset Atrial fibrillation Father Coronary artery disease Father Family Status - Relation Status Age at Father Level of Service:16018 [place] PHYS/QHP TELEPHONE EVALUATION 11-20 MIN [facility] 36on 11-14-2023 36 He can take 2 and see how he does from there , ok to take a second dose today if he already took it. Always be mindful of low heart rate and other side effects like lightheadedness, dizziness, SOB, fatigue [facility] 36 Patient called with update after starting diltiazem. He thinks it was working for a bit but then after so long his HR goes back up to 130-140's. Did you want to add more? Please advise. Thanks. [facility] Office Visiton 11-12-2023 Follow-up visit [id number] DarcieTio Dee 1975 M Date Provider Department Center 11/12/2023 Alejandra6-ANALISA RAMAN KAREN [facility] Family History Problem Relation Age of Onset Atrial fibrillation Father Coronary artery disease Father Family Status - Relation Status Age at Father Level of Service:22945 [place] OFFICE/OUTPATIENT ESTABLISHED MOD MDM 30 MIN [facility] Office Visiton 11-07-2023 Follow-up visit [id number] Darcie,Tio Dee 1975 Date Provider Department Center 11/07/2023 3848-SIOBHAN DICKERSON KAREN [facility] Family History Problem Relation Age of Onset Atrial fibrillation Father Coronary artery disease Father Family Status - Relation Status Age at Father Level of Service:65293 [place] OFFICE/OUTPATIENT ESTABLISHED LOW MDM 20 MIN [facility] Office Visiton 08-05-2023 Follow-up visit [id number] Tio Allison 1975 M Date Provider Department Center 08/05/2023 3848-SIOBHAN DICKERSON [facility] Family History Problem Relation Age of Onset Atrial fibrillation Father Coronary artery disease Father Family Status - Relation Status Age at Father Level of Service:61141 [place] OFFICE/OUTPATIENT ESTABLISHED MOD MDM 30-39 MIN Normal [facility] CT HEAD WO CONon 03-29-2018 CT HEAD WO CON [address] [place] [address] Patient: TIO ALLISON Exam Date: 03/28/2018DOB: 1975 Gender:M : DR LILLI PALOMARES Admission #: [id number] : Order #: [id number] HERE TO VIEW EXAM RADIOLOGY REPORT PROCEDURE: [...] M.D. on 03/28/2018 at 23:03 Normal [facility] CBC AUTO DIFFon 03-28-2018 Basophils Auto #/vol (Bld) 0.0 103/ul Normal 0.0-0.1 [facility] Comment on above: Performed By: #### C BC ####[facility] [address] [place], [place] [address]Ynffrg Cristiane Basophils/100 WBC Auto (Bld) 0.4 % Normal 0.2-2.0 [facility] Comment on above: Performed By: #### C BC ####[facility] Psvbhfayrn7376 [place], [place] [address]Ntfvnn Cristiane Eosinophils 0.1 103/ul Normal 0.0-0.7 [facility] Comment on above: Performed By: #### C BC ####[facility] Iupfaebgek[address] Cristiane Eosinophils/100 leukocytes 1.1 % Normal 0.9-7.0 [facility] Comment on above: Performed By: #### C BC ####[facility] Lynovtatau2568 [place] [phone] Cristiane Erythrocyte distribution width Auto Ratio (RBC) 11.9 % Normal 11.0-15.0 [facility] Comment on above: Performed By: #### C BC ####[facility] Azjvyiaxiw[address] Cristiane Erythrocytes (RBC) 5.40 106/ul Normal 4.70-6.10 [facility] Comment on above: Performed By: #### C BC ####[facility] Gwppbrlazu7754 [place] [phone] Cristiane Hematocrit (HCT) 45.6 % Normal 42.0-54.0 [facility] Comment on above: Performed By: #### C BC ####[facility] Purtnktqzo7222 [place] [phone] Cristiane Hemoglobin mass conc (Bld) 15.7 g/dL Normal 14.0-18.0 [facility] Comment on above: Performed By: #### C BC ####[facility] Mioukvyugm3098 [place] [phone] Cristiane IG # 0.02 10e3/ul Normal 0.00-0.03 [facility] Comment on above: Performed By: #### C BC ####[facility] Exbcvvhpso1417 [address] Cristiane IG % 0.3 % Normal 0.0-0.5 [facility] Comment on above: Performed By: #### C BC ####[facility] Rurrmrsoet7670 [address] Cristiane Lymphocytes 3.1 103/ul Normal 1.2-3.8 [facility] Comment on above: Performed By: #### C BC ####[facility] Mepbtvxkyt2626 [place] [phone]iane Lymphocytes/100 leukocytes 41.2 % Normal 20.5-60.0 [facility] Comment on above: Performed By: #### C BC ####[facility] Tsgtarsifp4033 [place] [phone] Cristiane MANUAL DIFF REQ NO Normal [facility] Comment on above: Performed By: #### C BC ####[facility] Knvxkdxpme1820 [place] [phone] Cristiane MCH 29.1 pg Normal 25.9-34.0 [facility] Comment on above: Performed By: #### C BC ####[facility] Fzpddtmxjy1446 [place] [phone] Cristiane MCHC mass conc (RBC) 34.4 g/dL Normal 29.9-35.2 [facility] Comment on above: Performed By: #### C BC ####[facility] [address] [place] [address] Cristiane MCV 84.4 fL Normal 80.0-94.0 [facility] Comment on above: Performed By: #### C BC ####[facility] V[address] [place], [place] [address] Cristiane Monocytes 0.5 103/ul Normal 0.3-0.8 [facility] Comment on above: Performed By: #### C BC ####[facility] [address] [place], [place] [address]ken Cristiane Monocytes/100 leukocytes 6.9 % Normal 1.7-12.0 [facility] Comment on above: Performed By: #### C BC ####[facility] Aqgtcolkpg2370 [place] [phone]iane Neutrophils 3.8 103/ul Normal 1.4-6.5 [facility] Comment on above: Performed By: #### C BC ####[facility] Sefyqnkkzl6793 [place] [phone]iane Neutrophils/100 WBC Auto (Bld) 50.1 % Normal 43.0-75.0 [facility] Comment on above: Performed By: #### C BC ####[facility] Brsakiyfqx2365 [place] [phone]iane Platelet mean volume (PMV) 10.8 fL Normal 9.5-13.[address] [facility] Comment on above: Performed By: #### C BC ####[facility] Zrledanjox1241 [place] [phone] Cristiane Platelets 232 103/ul Normal 150-450 [facility] Comment on above: Performed By: #### C BC ####[facility] Rktzyazime7190 [place] [phone]iane WBC (Leukocytes) 7.5 103/ul Normal 4.0-11.0 [facility] Comment on above: Performed By: #### C BC ####[facility] Ijjdmtxmcp2172 [address] Cristiane PROF 14(COMP METB)on 018 Alanine aminotransferase (ALT) 49 U/L Normal 21-72 [facility] Comment on above: Performed By: #### C MP ####[facility] Ftnxlffhdf2959 [place] [phone]iane Albumin 4.7 g/dL Normal 3.5-5.[address] [facility] Comment on above: Performed By: #### C MP ####[facility] Dvjcdxcqkm4077 [address] [place] Albumin/Globulin Ratio 1.6 {ratio} Normal [facility] Comment on above: Performed By: #### C MP ####[facility] Tuumniragz6328 [place] [phone] Alkaline phosphatase (ALP) 97 U/L Normal 38-126 [facility] Comment on above: Performed By: #### C MP ####[facility] Xoxnvoinav1561 [place] [phone] Anion gap 13.1 mmol/L Normal [facility] Comment on above: Performed By: #### C MP ####[facility] Owbsvnkuls0659 [address] [place] Aspartate aminotransferase (AST) 29 U/L Normal 17-59 [facility] Comment on above: Performed By: #### C MP ####[facility] [address] [place] [address] Crist[place] Bilirubin Ql (U) 0.8 mg/dL Normal 0.2-1.3 [facility] Comment on above: Performed By: #### C MP ####[facility] Jseugtnqes[address] [place] [address] Cristiane BUN/Creatinine Ratio 20.2 mg/mg Normal [facility] Comment on above: Performed By: #### C MP ####[facility] F[address]oerhoua[address] [place] [address] Crist[place] Calcium 9.9 mg/dL Normal 8.4-10.2 [facility] Comment on above: Performed By: #### C MP ####[facility] [address] [place] [address] Crist[place] Chloride 101 mmol/L Normal 98-107 [facility] Comment on above: Performed By: #### C MP ####[facility] [address] [place] [address] Cristiane CO2 24.0 mmol/L Normal 22.0-30.0 [facility] Comment on above: Performed By: #### C MP ####[facility] Ikz[address] [place] [address] Crist[place] Creatinine 0.80 mg/dL Normal 0.66-1.25 [facility] Comment on above: Performed By: #### C MP ####[facility] Vyrbz[address] [place] [address] Cristiane eGFR (non-black) mL/min/{1.73_m2} Normal >=60 [facility] Comment on above: Performed By: #### C MP ####[facility] Mhvexpejqr[address] [place] [address] Crist[place] Globulin 3.0 g/dL Normal [facility] Comment on above: Performed By: #### C MP ####[facility] Pedqnbfjnk4978 [place], [place] [address]Sdzcji Cristiane Glucose mass conc 154 mg/dL Critically high 74-106 [facility] Comment on above: Performed By: #### C MP ####[facility] Zzuexqbsor9008 [place] [phone] Potassium molar conc 3.7 mmol/L Normal 3.4-5.0 [facility] Comment on above: Performed By: #### C MP ####[facility] [address]pmyxqtimi[address] [place], [place] [address]iane Protein 7.6 g/dL Normal 6.1-8.2 [facility] Comment on above: Performed By: #### C MP ####[facility] [address] [place], [place] [address] Cristiane Sodium 134 mmol/L Critically low 137-145 [facility] Comment on above: Performed By: #### C MP ####[facility] P[address]aucq[address] [place], [place] [address] Cristiane Urea nitrogen 16.0 mg/dL Normal 9.0-20.0 [facility] Comment on above: Performed By: #### C MP ####[facility] [address]inn[address]yep[address] [place], [place] [address] Cristiane CBC AUTO DIFFon 03-27-2018 Basophils Auto #/vol (Bld) 0.0 103/ul Normal 0.0-0.1 [facility] Comment on above: Performed By: #### C BC ####[facility] Ix[address]taxgta[address] [place], [place] [address] Cristiane Basophils/100 WBC Auto (Bld) 0.5 % Normal 0.2-2.0 [facility] Comment on above: Performed By: #### C BC ####[facility] Nwslefzkql[address] [place], [place] [address] Cristiane Eosinophils 0.1 103/ul Normal 0.0-0.7 [facility] Comment on above: Performed By: #### C BC ####[facility] Dwzynjcynz9604 [address] [place]iane Eosinophils/100 leukocytes 0.8 % Critically low 0.9-7.0 [facility] Comment on above: Performed By: #### C BC ####[facility] Zjcasxcova[address] [place] [address] Cristiane Erythrocyte distribution width Auto Ratio (RBC) 11.9 % Normal 11.0-15.0 [facility] Comment on above: Performed By: #### C BC ####[facility] Abnousnuro[address] [place] [address] Cristiane Erythrocytes (RBC) 5.42 106/ul Normal 4.70-6.10 [facility] Comment on above: Performed By: #### C BC ####[facility] Ikdoabeuxg[address] [place] [address] Cristiane Hematocrit (HCT) 46.0 % Normal 42.0-54.0 [facility] Comment on above: Performed By: #### C BC ####[facility] [address]cuebyhyu[address] [place] [address] Cristiane Hemoglobin mass conc (Bld) 15.6 g/dL Normal 14.0-18.0 [facility] Comment on above: Performed By: #### C BC ####[facility] Jytr[address]qp[address] [place] [address] Cristiane IG # 0.02 10e3/ul Normal 0.00-0.03 [facility] Comment on above: Performed By: #### C BC ####[facility] [address]zoqwe[address] [place] [address] Cristiane IG % 0.3 % Normal 0.0-0.5 [facility] Comment on above: Performed By: #### C BC ####[facility] [address]ufob[address]li[address] [place] [address] [place] Lymphocytes 1.8 103/ul Normal 1.2-3.8 [facility] Comment on above: Performed By: #### C BC ####[facility] [address]vsx[address] [place] [address] Crist[place] Lymphocytes/100 leukocytes 29.5 % Normal 20.5-60.0 [facility] Comment on above: Performed By: #### C BC ####[facility] Fohibguiaq8769 [address] Cristiane MANUAL DIFF REQ NO Normal [facility] Comment on above: Performed By: #### C BC ####[facility] Nteyxjugch3541 [place] [phone] MCH 28.8 pg Normal 25.9-34.0 [facility] Comment on above: Performed By: #### C BC ####[facility] Aycfspqiva3895 [place] [phone]iane MCHC mass conc (RBC) 33.9 g/dL Normal 29.9-35.2 [facility] Comment on above: Performed By: #### C BC ####[facility] Rfldgkpdfl2157 [place] [phone]iane MCV 84.9 fL Normal 80.0-94.0 [facility] Comment on above: Performed By: #### C BC ####[facility] Ekyppwjklh4963 [place] [phone] Monocytes 0.4 103/ul Normal 0.3-0.8 [facility] Comment on above: Performed By: #### C BC ####[facility] Zssebgbfdd6956 [place] [phone] Monocytes/100 leukocytes 6.4 % Normal 1.7-12.0 [facility] Comment on above: Performed By: #### C BC ####[facility] Vytwoznrta4904 [place], [place] [address]Gzzpeo Cristiane Neutrophils 3.9 103/ul Normal 1.4-6.5 [facility] Comment on above: Performed By: #### C BC ####[facility] Qfbfrfpxpd7509 [place] [phone]iane Neutrophils/100 WBC Auto (Bld) 62.5 % Normal 43.0-75.0 [facility] Comment on above: Performed By: #### C BC ####[facility] Ufqobaiqod2667 [place] [phone] Sauer Platelet mean volume (PMV) 10.8 fL Normal 9.5-13.5 [facility] Comment on above: Performed By: #### C BC ####[facility] Brunmdoiwx6013 [place] [phone] Sauer Platelets 217 103/ul Normal 150-450 [facility] Comment on above: Performed By: #### C BC ####[facility] Ucjrlciqzf7533 [place] [phone] Cristiane WBC (Leukocytes) 6.2 103/ul Normal 4.0-11.0 [facility] Comment on above: Performed By: #### C BC ####[facility] [address] [place] [address] Cristiane PROF 14(COMP METB)on 018 Alanine aminotransferase (ALT) 45 U/L Normal 21-72 [facility] Comment on above: Performed By: #### C MP ####[facility] [address]bvvo[address] [place] [address] Cristiane Albumin 4.9 g/dL Normal 3.5-5.0 [facility] Comment on above: Performed By: #### C MP ####[facility] [address]jz[address] [place] [address] [place] Albumin/Globulin Ratio 1.7 {ratio} Normal T [facility] Comment on above: Performed By: #### C MP ####[facility] Yhyskhleaq0668 [place] [phone] Alkaline phosphatase (ALP) 101 U/L Normal 38-126 [facility] Comment on above: Performed By: #### C MP ####[facility] Ouydevesnf2148 [address] [place] Anion gap 12.9 mmol/L Normal [facility] Comment on above: Performed By: #### C MP ####[facility] Bdhedzjbwm[address] [place], [place] [address]iane Aspartate aminotransferase (AST) 29 U/L Normal 17-59 [facility] Comment on above: Performed By: #### C MP ####[facility] Drokeudxhx3011 [place] [phone]iane Bilirubin Ql (U) 1.1 mg/dL Normal 0.2-1.3 [facility] Comment on above: Performed By: #### C MP ####[facility] Vnmgwusswd0731 [place] [phone] Cristiane BUN/Creatinine Ratio 21.3 mg/mg Normal [facility] Comment on above: Performed By: #### C MP ####[facility] F[address]kdbluct[address] [place] [address] Cristiane Calcium 10.3 mg/dL Critically high 8.4-10.2 [facility] Comment on above: Performed By: #### C MP ####[facility] [address]ab[address] [place], [place] [address] Cristiane Chloride 100 mmol/L Normal 98-107 [facility] Comment on above: Performed By: #### C MP ####[facility] Nufrxjcdgf[address] [place], [place] [address] Cristiane CO2 26.0 mmol/L Normal 22.0-30.0 [facility] Comment on above: Performed By: #### C MP ####[facility] [address]xaw[address] [place], [place] [address] Creatinine 0.72 mg/dL Normal 0.66-1.25 [facility] Comment on above: Performed By: #### C MP ####[facility] Mhjrvhwhhp0894 [place] [phone] Cristiane eGFR (non-black) mL/min/{1.73_m2} Normal >=60 [facility] Comment on above: Performed By: #### C MP ####[facility] [address]zwtzocy[address] [place], [place] [address] Cristiane Globulin 2.9 g/dL Normal [facility] Comment on above: Performed By: #### C MP ####[facility] Xwrjnftxkr[address] [place], [place] [address] Cristiane Glucose mass conc 107 mg/dL Critically high 74-106 [facility] Comment on above: Performed By: #### C MP ####[facility] Zbukivhtxd4900 [place], [place] [address]Etgcfm Cristiane Potassium molar conc 4.1 mmol/L Normal 3.4-5.[address] [facility] Comment on above: Performed By: #### C MP ####[facility] Iioaoymmlk7539 [place], [place] [address]Wbquet Cristiane Protein 7.8 g/dL Normal 6.1-8.[address] [facility] Comment on above: Performed By: #### C MP ####[facility] Htptxxijtd1643 [place] [phone] Cristiane Sodium 135 mmol/L Critically low 137-145 [facility] Comment on above: Performed By: #### C MP ####[facility] Sxxitlhtnl8388 [place], [place] [address]Szhhol Cristiane Urea nitrogen 15.0 mg/dL Normal 9.0-20.0 [facility] Comment on above: Performed By: #### C MP ####[facility] [address]orm[address]uyh6448 [place], [place] [address]Ilcxmp Karen Encounters Encounter Date Encounter Type Care Provider Facility Start: 12-02-2023 End: 12-02-2023 ambulatory AMANDA DOHERTY Not Available Start: 11-18-2023 End: [facility]: 11-12-2023 End: [facility]12[facility]: 11-07-2023 End: 11-07-2023 ambulatory [facility] Start: 08-05-2023 End: 08-05-2023 ambulatory [facility] Start: 01-13-2022 End: 01-13-2022 ambulatory Indigo Beal Other [facility] Other Start: 01-13-2022 Office outpatient visit 5 minutes Indigo Emigdio [facility] Start: 02-16-2021 End: 02-16-2021 Discharged Recurring Riya Tio Hidalgo Work Phone: [facility] Vaccine Off Site Start: 03-28-2018 End: 03-29-2018 Ambulatory LILLI PALOMARES Facility:[facility] Start: 03-27-2018 End: 03-27-2018 Ambulatory NAOMI Hernández DINESHJEN Facility:[facility] Immunizations Immunization Date Immunization Notes Care Provider Fa cility 01-02-2022 tetanus toxoid, reduced diphtheria toxoid, and acellular pertussis vaccine, adsorbed Indigo Beal Other [facility] Other 02-16-2021 COVID-19 mRNA,[id number] b2 (Pfizer) Riya Tio Hidalgo Work Phone: [facility] 01-23-2021 COVID-19 mRNA,[id number] b2 (Pfizer) Riya Tio Hidalgo Work Phone: [facility] Payers Date Payer Category Payer Unknown [id number] 1975 Unknown [id number] 1961 Unknown [id number] Self-pay Self Pay [id number] Social History Date Type Detail Facility Tobacco smoking status NHIS Unknown if ever smoked [facility] Start: 1975 Sex Assigned At Male F [facility] Sex Assigned At Sex Assigned At Bir th [facility] Other Goals Date Patient Goal Desired Activity /State Progress note 11-18-2023 Note Date & Type Note Facility 11-18-2023 Note [facility] Consult Note Reason for visit: AF/AFL, HFU HPI: Tio Allison is a 48 y.o. year old with past medical history of Atrial flutter. He was recently seen in the [facility] for second episode of tachycardia. Previously around 07/2023 patient was admitted to [facility] after having foot surgery as he was found to be in flutter postoperatively. On this most recent episode patient had heart rate up into the 150s and was stated to be in A-fib. He was recently in 08/[address] dickerson where a 30d monitor was ordered as noted below. there is concern for AF/AFL RVR [id number] 1 for HTN. sleep study 10/2023 shows moderate SAGAR and recommended CPAP His ECG today shows atrial flutter with rapid ventricular rate, he recently had on metoprolol tartrate increased to 100 mg twice daily with no change in heart rate. When he was in the ER recently 11/07/2023 he responded very well to Cardizem 20 mg IV he denies any chest pain, shortness of breath, FOFANA, LE edema, palpitations, lightness, dizziness Event monitor 08/05/2023 Shows multiple events of atrial fib RVR and atrial flutter RVR During 1 A-fib episode he had a 3.59 second pause ECG 11/18/23 Atrial flutter 11/12/23 AFL RVR 150s bpm, asymptomatic 11/07/2023 atrial flutter 08/05/2023 sinus rhythm 07/28/2023 atrial fibrillation RVR 167 bpm PMH: Past Medical History: Diagnosis Date Abnormal ECG Atrial fibrillation (CMS/HCC) Hyperlipidemia Hypertension PSH: Past Surgical History: Procedure Laterality Date FOOT SURGERY SH: Social Determinants of Health Tobacco Use: High Risk (08/05/2023) Patient History Smoking Tobacco Use: Never Smokeless Tobacco Use: Current Passive Exposure: Not on file Alcohol Use: Not on file Financial Resource Strain: Not on file Food Insecurity: Not on file Transportation Needs: Not on file Physical Activity: Not on file Stress: Not on file Social Connections: Not on file Intimate Partner Violence: Not on file Depression: Not on file Housing Stability: Not on file Utilities: Not on file Allergies: No Known Allergies Weight: 119kg Visit Vitals BP 139/85 (BP Location: Left arm, Patient Position: Sitting) Pulse 101 Ht 1.905 m (6' 3 ) Wt 119 kg (263 lb) SpO2 98% BMI 32.87 kg/m??? Smoking Status Never BSA 2.51 m??? Meds: Current Outpatient Medications on File Prior to Visit Medication Sig Dispense Refill atorvastatin (Lipitor) 10 mg tablet TAKE 10 MG BY MOUTH EVERY EVENING Eliquis 5 mg tablet Take 1 tablet (5 mg) by mouth in the morning and at bedtime. 180 tablet 3 lisinopril 20 mg tablet 20 mg in the morning. cefadroxil (Duricef) 500 mg capsule TAKE 1 CAPSULE BY MOUTH TWICE A DAY FOR 2 WEEKS dilTIAZem CD (Cardizem CD) 120 mg 24 hr capsule Take 1 capsule (120 mg) by mouth in the morning. 30 capsule 11 HYDROcodone-acetaminophen (Eola) 5-325 mg tablet metoprolol tartrate (Lopressor) 50 mg tablet Take 1 tablet (50 mg) by mouth in the morning and at bedtime. 60 tablet 11 [DISCONTINUED] metoprolol tartrate (Lopressor) 25 mg tablet Take 1 tablet (25 mg) by mouth in the morning and at bedtime. (Patient taking differently: Take 100 mg by mouth in the morning and at bedtime.) 180 tablet 3 [DISCONTINUED] tiZANidine (Zanaflex) 2 mg tablet TAKE 1 TABLET BY MOUTH THREE TIMES A DAY NEEDED FOR MUSCLE SPASICITY FOR 7 DAYS [DISCONTINUED] varenicline (Chantix) 1 mg tablet TAKE 1 TAB BY MOUTH IN THE MORNING AND 1 TAB BEFORE BEDTIME *TAKE WIHT FULL GLASS OF WATER* No current facility-administered medications on file prior to visit. ROS: Review of Systems Constitutional: Positive for malaise/fatigue. Respiratory: Positive for snoring. All other systems reviewed and are negative. Physical Exam: Telemed Labs: @LABRESULTS@ No results found for: CHOLESTEROL TOTAL , HDL , LDL CALC , LDL DIRECT , TRIGLYCERIDES , TSH , T3 TOTAL , T4 TOTAL , THYROID PEROXIDASE AB , BNP EKG: No results found for this or any previous visit (from the past 4464 hour(s)). Echo: 07/26/23 TTE Stress test: Coronary angiogram: @CATH@ Diagnostic Imaging: No images are attached to the encounter. Assessment and Plan: AF/AFL -[id number] 1 for HTN On BB and Cardizem for rate control. Educational links on AF ablation reviewed with patient and he is open to ablation. Will start on Amio to keep in SR. SAGAR -advise compliance with CPAP HTN - elevated, he is on lisinopril 20 mg daily - we are adjusting medication given RVR Follow up with Dr. Bassett in 1 week to establish care and discuss AF/AFL ablation He will call office 11/14 with update on HR to determine if we need to increase CCB. He responded better to CCB in ED so we will ad cardizem 120mg daily and see how he does, will reduce toprol tartrate to 50mg BID given side effects and lack of effectiveness as I am adding in CCB Will start amio and offer DCCV. Plan for Afib ablftion with f (more content not included)... [facility] Progress note 11-12-2023 Note Date & Type Note Facility 11-12-2023 Note Patient here for fol low up ED visit last week after seeing Dr. Dickerson. In the ED the metoprolol was increased to 75mg bid. Patient said his HR was in the 120's so he started taking 100mg bid per ED physician. He still denies chest pain, SOB, palpitations, and bleeding on Eliquis. He has noticed more fatigue since increasing metoprolol. Review of Systems Constitutional: Positive for malaise/fatigue. Respiratory: Positive for snoring. All other systems reviewed and are negative. [facility] Progress note 11-12-2023 Note Date & Type Note Facility 11-12-2023 Note [place] [facility]rophysiology Consult Note Reason for visit: AF/AFL, HFU HPI: Tio Allison is a 48 y.o. year old with past medical history of Atrial flutter. He was recently seen in the [facility] for second episode of tachycardia. Previously around 07/2023 patient was admitted to [facility] after having foot surgery as he was found to be in flutter postoperatively. On this most recent episode patient had heart rate up into the 150s and was stated to be in A-fib. He was recently in 08/[address] dickerson where a 30d monitor was ordered as noted below. there is concern for AF/AFL RVR [id number] 1 for HTN sleep study 10/2023 shows moderate SAGAR and recommended CPAP His ECG today shows atrial flutter with rapid ventricular rate, he recently had on metoprolol tartrate increased to 100 mg twice daily with no change in heart rate. When he was in the ER recently 11/07/2023 he responded very well to Cardizem 20 mg IV he denies any chest pain, shortness of breath, FOFANA, LE edema, palpitations, lightness, dizziness Event monitor 08/05/2023 Shows multiple events of atrial fib RVR and atrial flutter RVR During 1 A-fib episode he had a 3.59 second pause ECG 11/12/23 AFL RVR 150s bpm, asymptomatic 11/07/2023 atrial flutter 08/05/2023 sinus rhythm 07/28/2023 atrial fibrillation RVR 167 bpm PMH: Past Medical History: Diagnosis Date Abnormal ECG Atrial fibrillation (CMS/HCC) Hyperlipidemia Hypertension PSH: Past Surgical History: Procedure Laterality Date FOOT SURGERY SH: Social Determinants of Health Tobacco Use: High Risk (08/05/2023) Patient History Smoking Tobacco Use: Never Smokeless Tobacco Use: Current Passive Exposure: Not on file Alcohol Use: Not on file Financial Resource Strain: Not on file Food Insecurity: Not on file Transportation Needs: Not on file Physical Activity: Not on file Stress: Not on file Social Connections: Not on file Intimate Partner Violence: Not on file Depression: Not on file Housing Stability: Not on file Utilities: Not on file Allergies: No Known Allergies Weight: 119kg Visit Vitals Smoking Status Never Meds: Current Outpatient Medications on File Prior to Visit Medication Sig Dispense Refill atorvastatin (Lipitor) 10 mg tablet TAKE 10 MG BY MOUTH EVERY EVENING cefadroxil (Duricef) 500 mg capsule TAKE 1 CAPSULE BY MOUTH TWICE A DAY FOR 2 WEEKS Eliquis 5 mg tablet Take 1 tablet (5 mg) by mouth in the morning and at bedtime. 180 tablet 3 HYDROcodone-acetaminophen (Eola) 5-325 mg tablet lisinopril 20 mg tablet 20 mg in the morning. metoprolol tartrate (Lopressor) 25 mg tablet Take 1 tablet (25 mg) by mouth in the morning and at bedtime. (Patient taking differently: Take 50 mg by mouth in the morning and at bedtime.) 180 tablet 3 tiZANidine (Zanaflex) 2 mg tablet TAKE 1 TABLET BY MOUTH THREE TIMES A DAY NEEDED FOR MUSCLE SPASICITY FOR 7 DAYS varenicline (Chantix) 1 mg tablet TAKE 1 TAB BY MOUTH IN THE MORNING AND 1 TAB BEFORE BEDTIME *TAKE WIHT FULL GLASS OF WATER* No current facility-administered medications on file prior to visit. ROS: Cardio Basic Cardiovascular Symptoms: no lightheadedness, no leg edema, no syncope, no orthopnea, no PND, no claudication, Constitutional Constitutional: no fever, no night sweats, no significant weight gain, no significant weight loss, no exercise intolerance Eyes Eyes: no dry eyes, no irritation, no vision change ENMT Ears: no difficulty hearing, no ear pain Nose: no frequent nosebleeds, Mouth/Throat: no sore throat, no bleeding gums, no snoring, no dry mouth, no mouth ulcers, no oral abnormalities, no teeth problems Respiratory Respiratory: no cough, no wheezing, no coughing up blood, no sleep apnea Musculoskeletal Musculoskeletal: no muscle aches, no muscle weakness, joint pain+, no back pain, no swelling in the extremities Integumentary Skin no rash, no ulcer, no varicosities, no discoloration, no pruritus Neurologic Neurologic: no loss of consciousness, no weakness, no numbness, no seizures, no dizziness, no headaches Psychiatric Psych: no depression, feeling safe in relationship, no alcohol abuse, Hematologic/Lymphatic Hematologic/Lymphatic no swollen glands, no bruising Physical Exam: Constitutional General Appearance: well-nourished, well-developed, appears stated age Level of Distress: comfortable Psychiatric Mental Status: alert, normal affect Orientation: oriented to time, place, and person Insight: good judgement Eyes Lids and Conjunctivae: non-injected, no xanthelasma ENMT Ears: no lesions on external ear Nose: no lesions on external nose Oropharynx: no cyanosis, no pallor Neck Neck: supple, trachea midline Carotid Arteries: bilateral normal upstroke, no bruits Jugular Veins: normal jugular venous pressure Thyroid: not enlarged Lungs Respiratory Effort: unlabored Chest Exam: normal curvature, no t (more content not included)... [facility] Progress note 11-07-2023 Note Date & Type Note Facility 11-07-2023 Note Cardiology Follow Up Progress Note Chief Complaint: Follow up HPI: Tio Allison is a 48 y.o. male Who was recently evaluated at [facility] for atrial fibrillation with rapid ventricular response postoperatively. He presents to clinic today for follow-up. Patient states that he is doing well. Denies any complaints or concerns. He denies any chest pain or shortness of breath. Denies any lower extremity edema, orthopnea, or paroxysmal nocturnal dyspnea. Because he was tachycardic on exam, EKG was performed. Patient was noted to be in atrial flutter with rapid ventricular response. He denies any symptoms. Cardiology ROS: GENERAL: Denies fever, chills, night sweats, weight loss. HEENT: Denies changes in vision, photophobia, changes in hearing, epistaxis, oral bleeding. CARDIOVASCULAR: Denies chest pain, exertional dyspnea, orthopnea/PND, lower extremity edema, palpitations, lightheadedness/dizziness. RESPIRATORY: Denies SOB, coughing, wheezing GI: Denies abdominal pain, nausea/vomiting, heartburn, melena/hematochezia. RENAL: Denies dysuria, hematuria, flank pain. MSK: Denies muscle weakness/pain, arthralgias/joint pain. NEUROLOGIC: Denies LOC, weakness, numbness, headaches. SKIN: Denies abnormal rashes or bleeding. PSYCH: Denies significant anxiety, depression, sleep disturbances. Medications Current Outpatient Medications on File Prior to Visit Medication Sig Dispense Refill atorvastatin (Lipitor) 10 mg tablet TAKE 10 MG BY MOUTH EVERY EVENING Eliquis 5 mg tablet Take 1 tablet (5 mg) by mouth in the morning and at bedtime. 180 tablet 3 lisinopril 20 mg tablet 20 mg in the morning. cefadroxil (Duricef) 500 mg capsule TAKE 1 CAPSULE BY MOUTH TWICE A DAY FOR 2 WEEKS HYDROcodone-acetaminophen (Eola) 5-325 mg tablet No current facility-administered medications on file prior to visit. Allergies Patient has no known allergies. Physical Exam VITAL SIGNS: BP 118/80 (BP Location: Left arm, Patient Position: Sitting) Pulse (!) 156 Ht 1.905 m (6' 3 ) Wt 119 kg (263 lb) SpO2 97% BMI 32.87 kg/m??? Constitutional: Well developed, Well nourished, No acute distress, Non-toxic appearance. HENT: Normocephalic, Atraumatic, Bilateral external ears have normal appearance, Nose appears normal, nares are patent. Eyes: PERRLA, EOMI, Conjunctiva normal, No discharge. Neck: Normal range of motion, No tenderness, Supple, No stridor. No cervical lymphadenopathy noted. Cardiovascular: Normal heart rate, Normal rhythm, No murmurs, No rubs, No gallops. Thorax & Lungs: Normal breath sounds, No respiratory distress, No wheezing, No chest tenderness to palpation. Abdomen: Bowel sounds normal, Soft, Nontender, No masses, No pulsatile masses. Skin: Warm, Dry, No erythema, No rash. Back: No tenderness, No CVA tenderness. Extremities: Intact distal pulses, No edema, No tenderness, No cyanosis, No clubbing. Musculoskeletal: Grossly normal strength in extremities Neurologic: Alert & oriented x 3, no gross focal neurological deficits Psychiatric: Affect normal, Judgment normal, Mood normal. EKG results: No results found for this or any previous visit (from the past 4464 hour(s)). Echo results: No echocardiogram results found for the past 12 months Radiology: No image results found. Impression: -Postoperative atrial fibrillation, currently Atrial flutter with rapid ventricular response [id number] 2 score is 2. -Hypertension, well controlled -Snoring, concern for SAGAR Plan: -EKG performed and personally interpreted by me in clinic today. -Given documented atrial fibrillation with [id number] 2 score of 2, lifelong anticoagulation has been recommended. -Patient now with atrial flutter with rapid ventricular response. I discussed options with patient. I recommend going to the emergency department for parent Severiano rate control medications. He voices understanding and is willing to go. -Continue metoprolol, Eliquis -Continue current antihypertensive regimen as blood pressure is well controlled -Optimize medical management -Aggressive risk factor modification -Plan of care discussed with patient. All questions were answered. Patient voices understanding and is agreeable with current plan. -Patient was educated on red flag symptoms. Strict return precautions were provided. Patient verbalizes understanding -Follow-up in cardiology clinic in 3 months, or sooner as needed Siobhan Dickerson MD Interventional Cardiology [facility] [place] Progress note 11-07-2023 Note Date & Type Note Facility 11-07-2023 Note Patient here for fol [employer] up event monitor. He was started on Eliquis for afib. Denies chest pain, SOB, palpitations, and bleeding on Eliquis. Review of Systems Respiratory: Positive for snoring. All other systems reviewed and are negative. [facility] Progress note 08-05-2023 Note Date & Type Note Facility 08-05-2023 Note Cardiology Follow Up Progress Note Chief Complaint: Hospital follow-up HPI: Tio Allison is a 47 y.o. male Who was recently evaluated at [facility] for atrial fibrillation with rapid ventricular response postoperatively. He presents to clinic today for follow-up. Overall, patient states that he is doing well. He adamantly denies any cardiac complaints or concerns. He denies any chest pain. He denies any shortness of breath. He denies any lower extremity edema, orthopnea, paroxysmal nocturnal dyspnea. He denies any palpitations or fluttering. He is taking his blood thinner without any issues. No bleeding complications. Patient denies any previous history of CVA, PVD, DM, HTN, Depressed LVEF, and CAD. Cardiology ROS: GENERAL: Denies fever, chills, night sweats, weight loss. HEENT: Denies changes in vision, photophobia, changes in hearing, epistaxis, oral bleeding. CARDIOVASCULAR: Denies chest pain, exertional dyspnea, orthopnea/PND, lower extremity edema, palpitations, lightheadedness/dizziness. RESPIRATORY: Denies SOB, coughing, wheezing GI: Denies abdominal pain, nausea/vomiting, heartburn, melena/hematochezia. RENAL: Denies dysuria, hematuria, flank pain. MSK: Denies muscle weakness/pain, arthralgias/joint pain. NEUROLOGIC: Denies LOC, weakness, numbness, headaches. SKIN: Denies abnormal rashes or bleeding. PSYCH: Denies significant anxiety, depression, sleep disturbances. Medications Current Outpatient Medications on File Prior to Visit Medication Sig Dispense Refill atorvastatin (Lipitor) 10 mg tablet TAKE 10 MG BY MOUTH EVERY EVENING cefadroxil (Duricef) 500 mg capsule TAKE 1 CAPSULE BY MOUTH TWICE A DAY FOR 2 WEEKS Eliquis 5 mg tablet Take 5 mg by mouth in the morning and at bedtime. HYDROcodone-acetaminophen (Eola) 5-325 mg tablet lisinopril 20 mg tablet 20 mg in the morning. metoprolol tartrate (Lopressor) 25 mg tablet Take 25 mg by mouth in the morning and at bedtime. tiZANidine (Zanaflex) 2 mg tablet TAKE 1 TABLET BY MOUTH THREE TIMES A DAY NEEDED FOR MUSCLE SPASICITY FOR 7 DAYS No current facility-administered medications on file prior to visit. Allergies Patient has no known allergies. Physical Exam VITAL SIGNS: BP 108/72 (BP Location: Right arm, Patient Position: Sitting) Pulse 72 Ht 1.905 m (6' 3 ) Wt 118 kg (260 lb) SpO2 96% BMI 32.50 kg/m??? Constitutional: Well developed, Well nourished, No acute distress, Non-toxic appearance. HENT: Normocephalic, Atraumatic, Bilateral external ears have normal appearance, Nose appears normal, nares are patent. Eyes: PERRLA, EOMI, Conjunctiva normal, No discharge. Neck: Normal range of motion, No tenderness, Supple, No stridor. No cervical lymphadenopathy noted. Cardiovascular: Normal heart rate, Normal rhythm, No murmurs, No rubs, No gallops. Thorax & Lungs: Normal breath sounds, No respiratory distress, No wheezing, No chest tenderness to palpation. Abdomen: Bowel sounds normal, Soft, Nontender, No masses, No pulsatile masses. Skin: Warm, Dry, No erythema, No rash. Back: No tenderness, No CVA tenderness. Extremities: Intact distal pulses, No edema, No tenderness, No cyanosis, No clubbing. Musculoskeletal: Grossly normal strength in extremities Neurologic: Alert & oriented x 3, no gross focal neurological deficits Psychiatric: Affect normal, Judgment normal, Mood normal. EKG results: No results found for this or any previous visit (from the past 4464 hour(s)). Echo results: No echocardiogram results found for the past 12 months Radiology: No image results found. Impression: -Postoperative atrial fibrillation, currently in sinus rhythm. [id number] 2 score is 2. -Hypertension, well controlled -Snoring, concern for SAGAR Plan: -Given documented atrial fibrillation with [id number] 2 score of 2, would recommend lifelong anticoagulation. Will order 30-day event monitor to assess A-fib burden. If no atrial fibrillation, consider loop recorder. -Continue metoprolol, Eliquis -Continue current antihypertensive regimen as blood pressure is well controlled -Patient and states that he snores frequently. Recommend sleep study for obstructive sleep apnea. Order placed. -Optimize medical management -Aggressive risk factor modification -Plan of care discussed with patient. All questions were answered. Patient voices understanding and is agreeable with current plan. -Patient was educated on red flag symptoms. Strict return precautions were provided. Patient verbalizes understanding -Follow-up in cardiology clinic in 3 months, or sooner as needed Siobhan Dickerson MD Interventional Cardiology [facility] [place] Progress note 08-05-2023 Note Date & Type Note Facility 08-05-2023 Note Patient here for fol low up [facility] for afib w/ RVR s/p ankle surgery. He was started on Eliquis and metoprolol, and amlodipine was stopped. Seen as inpatient consult by Dr. Dickerson on 07/28. He denies chest pain, SOB, palpitations, and bleeding on Eliquis. Review of Systems Respiratory: Positive for snoring. All other systems reviewed and are negative. [facility] Evaluation note 01-13-2022 Note Date & Type Note Facility 01-13-2022 Evaluation note Encounter Date Diagnosis Assessment Notes Jan, Encounter for removal of sutures (ICD-10 - Z48.02) sutures were removed without incident [facility] Other Evaluation note Note Date & Type Note Facility Evaluation note No Assessments Information Avail able [facility] History general Narrative - Reported Note Date & Type Note Facility History general Narrative - Reported Type Medical History HTN Surgical History left knee arthroscopy Hospitalization History see above [facility] Other Summary Purpose Family History No Family History Records FoundNo Family History Records FoundNo Family History Records Found Advance Directives No Advanced Directives Records Found Advance Directive Response Recorded Date/ Time Advance Directives No January 17, 2 021 7:34pm Chief Complaint and Reason for Visit Chief Complaint vaccine ins Additional Source Comments (unrecognized sect ion and content) No Status Records FoundNo Status Records FoundNo Status Records Found INFORMATION SOURCE (unrecogn ized section and content) DATE CREATED AUTHOR 04/22/2018 [facility] DATE CREATED AUTHOR AUTHOR'S ORGANIZ ATION 12/03/2023 [facility] EPIC DATE CREATED AUTHOR AUTHOR'S ORGANIZ ATION 12/12/2023 [facility] REASON FOR VISIT (unrecogniz ed section and [...] BE BASED ON THE PRIMARY CLINICAL RECORDS. [employer] [facility]. provides no warranty or guarantee of the accuracy or completeness of information in this document.
[2023-12-13 08:44] LABS: Anion Gap 13.2; BUN Creatinine Ratio 13.5; Carbon Dioxide 26.1 mmol/L (21.0-32.0); Chloride 102 mmol/L (98-107); Estimated GFR (African America >60 (>=60); Estimated GFR (Non-African Ame >60 (>=60); Glucose 132 mg/dL (74-106); Potassium 4.3 mmol/L (3.5-5.1); Sodium 137 mmol/L (136-145)
== END 2023-12-13 08:08 | disposition home or self-care (01) ==
LOC: LAB 08:11
PROVIDERS: Visit Provider Internal Medicine Cardiovascular Disease
DX: I48.0 Paroxysmal atrial fibrillation (principal)
CPT/HCPCS: 36415; 80048

== ENCOUNTER 2024-01-21 12:16 | Outpatient (OUT) | payer BC, SELFPAY ==
--- OUTSIDE RECORDS SUMMARY | 2024-01-21 12:26 | XMS_ITS | CCD ---
Author Organization [facility] Care Team Providers Care Equipment Cleaner And Tester Name Role Phone NAOMI RUBIO Unavailable Unavailable NAOMI RUBIO Unavailable Unavailable REQUEST, NONE LISTED Unavailable Unavailable NAOMI RUBIO Unavailable Unavailable LILLI PALOMARES Unavailable Unavailable LILLI PALOMARES Unavailable Unavailable SELENA ODONNELL Unavailable Unavailable LILLI PALOMARES Unavailable Unavailable JASPAL BALBUENA Unavailable Unavailable Riya Hidalgo Attending Provider Selena Odonnell Primary Care Provider Indigo Beal Unavailable AMANDA DOHERTY Attending Unavailable SIOBHAN DICKERSON Attending Unavailable ANALISA RAMAN Attending Unavailable NATHANAEL BASSETT Referring Unavailable LETY, NATHANAEL Referring Unavailable NATHANAEL BASSETT Referring Unavailable NATHANAEL BASSETT Attending Unavailable SAIGE MERCEDES Attending Unavailable NATHANAEL BASSETT Admitting Unavailable LETY, NATHANAEL Attending Unavailable SIOBHAN DICKERSON Attending Unavailable Medications Current Medications Medication Drug [...] Da te Episodic/Chronic Cardiac dysrhythmias (6 sources) Paroxysmal atrial fibrillation; Translations: [Unspecified atrial flutter] Onset: 11-12-2023 Chronic Conditions associated with dizziness or vertigo (5 sources) Dizziness and giddiness; Translations: [Labyrinthitis, unspecified ear] Onset: 03-28-2018 Episodic Essential hypertension (2 sources) Essential (primary) hypertension; Translations: [Essential (primary) hypertension] Onset: 01-08-2024 Chronic Other upper respiratory infections (1 source) Inflammatory disorder of upper respiratory tract; Translations: [Chronic sinusitis, unspecified] Chronic Residual codes; unclassified (2 sources) Obstructive sleep apnea (adult) (pediatric); Translations: [Obstructive sleep apnea (adult) (pediatric)] Onset: 01-08-2024 Chronic Past or Other Problems Problem Classification Problem Date Documented Da te Episodic/Chronic Other aftercare (1 source) Encounter for removal of sutures Onset: 01-13-2022 Resolved: 01-13-2022 Episodic Results Test Name Value Interpretation Reference Range Facility CTA CHEST W IV CONTRASTon CTA CHEST W IV CONTRAST CTA of the chest with contrast and 3-D reformats INDICATION: Paroxysmal atrial fibrillation, preablation CT PROCEDURE: Automatic radiation exposure lowering techniques were utilized. All CT scans in this facility use dose modulation, iterative reconstruction, and/or weight based dosing when appropriate to reduce radiation dose to as low as reasonably achievable. Following the intravenous injection of 100 mL of Omnipaque 350, and 15 mL of oral contrast, a CTA of the chest and the 3-D reformats obtained Including 3-D maximum intensity projection reconstructions constructed under concurrent physician supervision on a independent workstation. 3-D images obtained to improve visualization of vascular detail. FINDINGS: No comparisons available. There is residual oral contrast within the esophagus. Motion artifacts compromising the evaluation. Left lower lobe nodule measuring 1.2 cm containing calcifications, likely represent a granuloma. No other lung nodule seen. No airspace disease. No pleural or pericardial effusions. The heart is slightly prominent. No enlarged lymph nodes in the axilla or mediastinum. The coronary sinus measures 1.2 cm. No filling defect seen in the left atrial appendage. The ascending aorta measures 3.5 cm. The main pulmonary artery measures 3.1 cm. The right superior pulmonary vein measures 1.4 x 1.4 cm and bifurcates 2.5 cm from the origin. The right middle pulmonary vein measures 0.8 cm. The right inferior pulmonary vein measures 1.2 x 1 cm and bifurcates 1.5 cm from the origin. The left superior pulmonary vein measures 1.5 x 1.4 cm and bifurcates 2.1 cm from the origin. The left inferior pulmonary vein measures 1.8 x 1.3 cm and bifurcates 2 cm from the origin. No focal stenosis seen in the pulmonary veins. IMPRESSION: 1. No focal stenosis seen in the pulmonary veins. 2. The heart is slightly prominent. 3. Calcified nodule in the left lower lobe most likely benign. Electronically signed: SID JOEL. [facility] Comment on above: Order Comment: Jessica aponte schedule prior to January 28 Office Visiton 01-08-2024 Follow-up visit [id number] Tio Allison 1975 Date Provider Department Center 01/08/2024 SAIGE HOBSON KAREN [facility] Family History Problem Relation Age of Onset Atrial fibrillation Father Coronary artery disease Father Family Status - Relation Status Age at Father Level of Service:51982 [place] OFFICE/OUTPATIENT ESTABLISHED MOD MDM 30 MIN [facility] Letter (Out)on 01-07-2024 Letter (Out) [id number] Tio Allison 1975 M Date Provider Department Center 01/07/2024 None-None [facility] Medical C Family History Problem Relation Age of Onset Atrial fibrillation Father Coronary artery disease Father Family Status - Relation Status Age at Father [facility] Letter (Out)on 01-05-2024 Letter (Out) [id number] Tio Allison 1975 M Date Provider Department Center 01/05/2024 None-None [facility] AUTH [facility] Medical C Family History Problem Relation Age of Onset Atrial fibrillation Father Coronary artery disease Father Family Status - Relation Status Age at Father [facility] Letter (Out)on 12-22-2023 Letter (Out) [id number] Tio Allison 1975 M Date Provider Department Center 12/22/2023 None-None [facility] Medical Family History Problem Relation Age of Onset Atrial fibrillation Father Coronary artery disease Father Family Status - Relation Status Age at Father [facility] ANESon 12-18-2023 ANES Attestation signed by Nathanael Bassett MD at 12/18/2023 8:49 AM By using the attestations below, the signing clinician agrees that I have read and verify that the documentation has been personally reviewed by me and ensure that the documentation accurately reflects the encounter. GC: I personally saw this patient on the day of the encounter, performed the cain portion(s) of the service and participated in the management and confirm the resident's documentation. Please note there may be an additional personal documentation from me. Patient: Tio Dee Darcie Procedure Information Date/Time: 12/18/23 0835 Procedure: Cardioversion - Dec Location: [facility] / [facility] (Cath) Providers: Nathanael Bassett MD Clinical information reviewed: Allergies Meds Physical Exam Airway Mallampati: III Cardiovascular - normal exam Dental Pulmonary - normal exam Abdominal - normal exam Anesthesia Plan ASA 3 other (Conscious sedation) Anesthetic plan and risks discussed with patient. Use of blood products discussed with patient who consented to blood products. Plan discussed with attending. Additional Equipment Requests [facility] HPon 12-18-2023 HP Attestation signed by Nathanael Bassett MD at 12/18/2023 8:49 AM By using the attestations below, the signing clinician agrees that I have read and verify that the documentation has been personally reviewed by me and ensure that the documentation accurately reflects the encounter. GC: I personally saw this patient on the day of the encounter, performed the cain portion(s) of the service and participated in the management and confirm the resident's documentation. Please note there may be an additional personal documentation from me. HPI: Tio Allison is a 48 y.o. year old with past medical history of Atrial flutter. He was recently seen in the [facility] for second episode of tachycardia. Previously around 07/2023 patient was admitted to [facility] after having foot surgery as he was found to be in flutter postoperatively. On this most recent episode patient had heart rate up into the 150s and was stated to be in A-fib. He was recently in 08/[address] dickerson where a 30d monitor was ordered as noted below. there is concern for AF/AFL RVR [id number] 1 for HTN sleep study 10/2023 shows [...] 07/28/2023 atrial fibrillation RVR 167 bpm PMH: Medical History Past Medical History: Diagnosis Date Abnormal ECG Atrial fibrillation (CMS/HCC) Hyperlipidemia Hypertension PSH: Surgical History Past Surgical History: Procedure Laterality Date FOOT [...] morning and at bedtime. 180 tablet 3 HYDROcodone-acetamin ophen ([place]) 5-325 mg tablet lisinopril 20 mg tablet [...] WIHT FULL GLASS OF WATER* No current facility-administere d medications on file prior to visit. ROS: [...] feeling safe in relationship, no alcohol abuse, Hematologic/Lymphati c Hematologic/Lymphati c no swollen glands, no bruising Phy (more content not included)... [facility] NURSNOTEon 12-18-2023 NURSNOTE RN educated pt on d/c instructions. RN encouraged pt to voice any questions or concerns. Pt verbalizes no questions or concerns at this time. Pt was wheeled off of unit with all of belongings. [facility] Orders Onlyon 12-11-2023 Orders Only [id number] Tio Allison 1975 M Date Provider Department Center 12/11/2023 [facility] Family History Problem Relation Age of Onset Atrial fibrillation Father Coronary artery disease Father Family Status - Relation Status Age at Father [facility] Letter (Out)on 12-02-2023 Letter (Out) [id number] Cardenas 1975 M Date Provider Department Center 12/02/2023 None-None [facility] Medical C Family History Problem Relation Age of Onset Atrial fibrillation Father Coronary artery disease Father Family Status - Relation Status Age at Father [facility] Prep for Procedureon 024 Prep for Procedure [id number] Tio Allison Luiz 1975 M Date Provider Department Center 12/02/2023 1987[facility] Family History Problem Relation Age of Onset Atrial fibrillation Father Coronary artery disease Father Family Status - Relation Status Age at Father [facility] Orders Onlyon 11-18-2023 Orders Only [id number] Tio Allison Luiz 1975 M Date Provider Department Center 11/18/2023 DOM PERES KAREN [facility] Family History Problem Relation Age of Onset Atrial fibrillation Father Coronary artery disease Father Family Status - Relation Status Age at Father [facility] Telemedicineon 11-18-2023 Telemedicine [id number] Tio Allison Luiz 1975 Date Provider Department [place] 11/18/2023 241-NATHANAEL BASSETT [facility] Family History Problem Relation Age of Onset Atrial fibrillation Father Coronary artery disease Father Family Status - Relation Status Age at Father Level of Service:99499 [place] PHYS/QHP TELEPHONE EVALUATION 11-20 MIN [facility] 36on 11-14-2023 36 He can take 2 and see how he does from there , ok to take a second dose today if he already took it. Always be mindful of low heart rate and other side effects like lightheadedness, dizziness, SOB, fatigue [facility] 36 Patient called with update after starting diltiazem. He thinks it was working for a bit but then after so long his HR goes back up to 130-140's. Did you want to add more? Please advise. Thanks. [facility] Office Visiton 11-12-2023 Follow-up visit [id number] Darcie,Tio Dee 1975 Date Provider Department Center 11/12/2023 Trista-ANALISA RAMAN KAREN [facility] Family History Problem Relation Age of Onset Atrial fibrillation Father Coronary artery disease Father Family Status - Relation Status Age at Father Level of Service:83119 [place] OFFICE/OUTPATIENT ESTABLISHED MOD MDM 30 MIN [facility] Office Visiton 11-07-2023 Follow-up visit [id number] Darcie,Tio Dee 1975 Date Provider Department Center 11/07/2023 [id number] CANTORAdelina KAREN [facility] Family History Problem Relation Age of Onset Atrial fibrillation Father Coronary artery disease Father Family Status - Relation Status Age at Father Level of Service:84871 [place] OFFICE/OUTPATIENT ESTABLISHED LOW MDM 20 MIN [facility] Office Visiton 08-05-2023 Follow-up visit [id number] Tio Alilson 1975 M Date Provider Department [facility] [place] [facility] Family History Problem Relation Age of Onset Atrial fibrillation Father Coronary artery disease Father Family Status - Relation Status Age at Father Level of Service:49344 [place] OFFICE/OUTPATIENT ESTABLISHED MOD MDM 30-39 MIN [facility] CT HEAD WO CONon 03-29-2018 CT HEAD WO CON [address] [place] [address] Patient: TIO ALLISON. Exam Date: 03/28/2018DOB: 1975 Gender:M : DR LILLI PALOMARES Admission #: [id number] : Order #: [id number] HERE TO VIEW EXAM RADIOLOGY REPORT PROCEDURE: [...] M.D. on 03/28/2018 at 23:03 Normal [facility] CBC AUTO DIFFon 03-28-2018 Basophils Auto #/vol (Bld) 0.0 103/ul Normal 0.0-0.[address] [facility] Comment on above: Performed By: #### C BC ####[facility] [address] [place] [address] Cristiane Basophils/100 WBC Auto (Bld) 0.4 % Normal 0.2-2.0 [facility] Comment on above: Performed By: #### C BC ####[facility] [address] [place] [address] Cristiane Eosinophils 0.1 103/ul Normal 0.0-0.7 [facility] Comment on above: Performed By: #### C BC ####[facility] [address] [place] [address] Cristiane Eosinophils/100 leukocytes 1.1 % Normal 0.9-7.0 [facility] Comment on above: Performed By: #### C BC ####[facility] [address] [place] [address] Cristiane Erythrocyte distribution width Auto Ratio (RBC) 11.9 % Normal 11.0-15.[address] [facility] Comment on above: Performed By: #### C BC ####[facility] [address] [place] [address] Cristiane Erythrocytes (RBC) 5.40 106/ul Normal 4.70-6.10 [facility] Comment on above: Performed By: #### C BC ####[facility] [address] [place] [address] Cristiane Hematocrit (HCT) 45.6 % Normal 42.0-54.0 [facility] Comment on above: Performed By: #### C BC ####[facility] [address] [place], [place] [address] Cristiane Hemoglobin mass conc (Bld) 15.7 g/dL Normal 14.0-18.0 [facility] Comment on above: Performed By: #### C BC ####[facility] [address] [place], [place] [address] Cristiane IG # 0.02 10e3/ul Normal 0.00-0.[address] [facility] Comment on above: Performed By: #### C BC ####[facility] [address] [place], [place] [address] Cristiane IG % 0.3 % Normal 0.0-0.[address] [facility] Comment on above: Performed By: #### C BC ####[facility] Hxuxoisbmd8473 [address] Cristiane Lymphocytes 3.1 103/ul Normal 1.2-3.8 [facility] Comment on above: Performed By: #### C BC ####[facility] Qdymeqvwvu3293 [address] Cristiane Lymphocytes/100 leukocytes 41.2 % Normal 20.5-60.0 [facility] Comment on above: Performed By: #### C BC ####[facility] Eeriyziupv4383 [address] Cristiane MANUAL DIFF REQ NO Normal [facility] Comment on above: Performed By: #### C BC ####[facility] [address] [place] [address] Cristiane MCH 29.1 pg Normal 25.9-34.0 [facility] Comment on above: Performed By: #### C BC ####[facility] Ljuxmrdmah9774 [address] Cristiane MCHC mass conc (RBC) 34.4 g/dL Normal 29.9-35.2 [facility] Comment on above: Performed By: #### C BC ####[facility] Vjvfzfbcem0684 [address] Cristiane MCV 84.4 fL Normal 80.0-94.0 [facility] Comment on above: Performed By: #### C BC ####[facility] Jnwejugxyy7957 [address] Cristiane Monocytes 0.5 103/ul Normal 0.3-0.8 [facility] Comment on above: Performed By: #### C BC ####[facility] Rytptylqll7493 [address] Cristiane Monocytes/100 leukocytes 6.9 % Normal 1.7-12.0 [facility] Comment on above: Performed By: #### C BC ####[facility] [address] [place] [id number] Sauer Neutrophils 3.8 103/ul Normal 1.4-6.5 [facility] Comment on above: Performed By: #### C BC ####[facility] [address] [place] [id number] Sauer Neutrophils/100 WBC Auto (Bld) 50.1 % Normal 43.0-75.0 [facility] Comment on above: Performed By: #### C BC ####[facility] [address] [place], [place] [address] Sauer Platelet mean volume (PMV) 10.8 fL Normal 9.5-13.5 [facility] Comment on above: Performed By: #### C BC ####[facility] [address] [place], [place] [address] Cristiane Platelets 232 103/ul Normal 150-450 [facility] Comment on above: Performed By: #### C BC ####[facility] [address] [place], [place] [address] Sauer WBC (Leukocytes) 7.5 103/ul Normal 4.0-11.0 [facility] Comment on above: Performed By: #### C BC ####[facility] [address] [place], [place] [address] Cristiane PROF 14(COMP METB)on 018 Alanine aminotransferase (ALT) 49 U/L Normal 21-72 [facility] Comment on above: Performed By: #### C MP ####[facility] [address] [place], [place] [address] Sauer Albumin 4.7 g/dL Normal 3.5-5.0 [facility] Comment on above: Performed By: #### C MP ####[facility] [address] [place], [place] [address]noah Sauer Albumin/Globulin Ratio 1.6 {ratio} Normal [facility] Comment on above: Performed By: #### C MP ####[facility] [address] [place], [place] [address] Cristiane Alkaline phosphatase (ALP) 97 U/L Normal 38-126 [facility] Comment on above: Performed By: #### C MP ####[facility] [address] [place] [address] Cristiane Anion gap 13.1 mmol/L Normal [facility] Comment on above: Performed By: #### C MP ####[facility] [address] [place], [place] [address] Cristiane Aspartate aminotransferase (AST) 29 U/L Normal 17-59 [facility] Comment on above: Performed By: #### C MP ####[facility] [address] [place] [address] Cristiane Bilirubin Ql (U) 0.8 mg/dL Normal 0.2-1.3 [facility] Comment on above: Performed By: #### C MP ####[facility] [address] [place] [address] Cristiane BUN/Creatinine Ratio 20.2 mg/mg Normal [facility] Comment on above: Performed By: #### C MP ####[facility] [address] [place] [address] Cristiane Calcium 9.9 mg/dL Normal 8.4-10.2 [facility] Comment on above: Performed By: #### C MP ####[facility] [address] [place] [address] Cristiane Chloride 101 mmol/L Normal 98-107 [facility] Comment on above: Performed By: #### C MP ####[facility] [address] [place] [address] Cristiane CO2 24.0 mmol/L Normal 22.0-30.0 [facility] Comment on above: Performed By: #### C MP ####[facility] [address] [place] [address] Cristiane Creatinine 0.80 mg/dL Normal 0.66-1.25 [facility] Comment on above: Performed By: #### C MP ####[facility] [address] [place] [address] Cristiane eGFR (non-black) mL/min/{1.73_m2} Normal >=60 [facility] Comment on above: Performed By: #### C MP ####[facility] Cbm[address]htgyqy[address] Cristiane Globulin 3.0 g/dL Normal [facility] Comment on above: Performed By: #### C MP ####[facility] Oayephhxlf[address] Cristiane Glucose mass conc 154 mg/dL Critically high 74-106 [facility] Comment on above: Performed By: #### C MP ####[facility] [address] [place] [address] Cristiane Potassium molar conc 3.7 mmol/L Normal 3.4-5.[address] [facility] Comment on above: Performed By: #### C MP ####[facility] [address] [place] [address] Cristiane Protein 7.6 g/dL Normal 6.1-8.[address] [facility] Comment on above: Performed By: #### C MP ####[facility] [address] [place] [address] Cristiane Sodium 134 mmol/L Critically low 137-145 [facility] Comment on above: Performed By: #### C MP ####[facility] [address] [place] [address] Cristiane Urea nitrogen 16.0 mg/dL Normal 9.0-20.[address] [facility] Comment on above: Performed By: #### C MP ####[facility] M[address]flqiwuqu[address] Cristiane CBC AUTO DIFFon 03-27-2018 Basophils Auto #/vol (Bld) 0.0 103/ul Normal 0.0-0.[address] [facility] Comment on above: Performed By: #### C BC ####[facility] [address] [place] [address] Cristiane Basophils/100 WBC Auto (Bld) 0.5 % Normal 0.2-2.[address] [facility] Comment on above: Performed By: #### C BC ####[facility] [address]ok[address] Cristiane Eosinophils 0.1 103/ul Normal 0.0-0.[address] [facility] Comment on above: Performed By: #### C BC ####[facility] Uunkvexbyb2445 [address] Crist[place] Eosinophils/100 leukocytes 0.8 % Critically low 0.9-7.[address] [facility] Comment on above: Performed By: #### C BC ####[facility] [address] [place] [address] Cristiane Erythrocyte distribution width Auto Ratio (RBC) 11.9 % Normal 11.0-15.[address] [facility] Comment on above: Performed By: #### C BC ####[facility] [address] [place] [address] Cristiane Erythrocytes (RBC) 5.42 106/ul Normal 4.70-6.10 [facility] Comment on above: Performed By: #### C BC ####[facility] [address] [place], [place] [address] Cristiane Hematocrit (HCT) 46.0 % Normal 42.0-54.0 [facility] Comment on above: Performed By: #### C BC ####[facility] [address] [place] [address] Cristiane Hemoglobin mass conc (Bld) 15.6 g/dL Normal 14.0-18.[address] [facility] Comment on above: Performed By: #### C BC ####[facility] [address] [place] [address] Cristiane IG # 0.02 10e3/ul Normal 0.00-0.[address] [facility] Comment on above: Performed By: #### C BC ####[facility] [address] [place] [address] Cristiane IG % 0.3 % Normal 0.0-0.[address] [facility] Comment on above: Performed By: #### C BC ####[facility] [address] [place] [id number] Cristiane Lymphocytes 1.8 103/ul Normal 1.2-3.8 [facility] Comment on above: Performed By: #### C BC ####[facility] [address]fwyjljqo7273 [place], [place] [address]Jdknpi Cristiane Lymphocytes/100 leukocytes 29.5 % Normal 20.5-60.0 [facility] [place] [facility] Comment on above: Performed By: #### C BC ####[facility] [address]pmz52[address] [place] [id number] Cristiane MANUAL DIFF REQ NO Normal [facility] Comment on above: Performed By: #### C BC ####[facility] [address] [place], [place] [address]Gerken Cristiane MCH 28.8 pg Normal 25.9-34.0 [facility] [place] [facility] Comment on above: Performed By: #### C BC ####[facility] [address] [place], [place] [address]Gerken Cristiane MCHC mass conc (RBC) 33.9 g/dL Normal 29.9-35.2 [facility] [place] [facility] Comment on above: Performed By: #### C BC ####[facility] F[address]faq[address] [place], [place] [address]Gerken Cristiane MCV 84.9 fL Normal 80.0-94.0 [facility] [place] [facility] Comment on above: Performed By: #### C BC ####[facility] Glyzaetcez[address] [place], [place] [address]Gerken Cristiane Monocytes 0.4 103/ul Normal 0.3-0.8 [facility] [place] [facility] Comment on above: Performed By: #### C BC ####[facility] V[address]xs[address] [place], [place] [address]Gerken Cristiane Monocytes/100 leukocytes 6.4 % Normal 1.7-12.0 [facility] [place] [facility] Comment on above: Performed By: #### C BC ####[facility] [address] [place], [place] [address]Gerken Cristiane Neutrophils 3.9 103/ul Normal 1.4-6.[address] [facility] Comment on above: Performed By: #### C BC ####[facility] Cqibboubnw3717 [address] Sauer Neutrophils/100 WBC Auto (Bld) 62.5 % Normal 43.0-75.[address] [facility] Comment on above: Performed By: #### C BC ####[facility] Sqhraftkid2279 [address] Cristiane Platelet mean volume (PMV) 10.8 fL Normal 9.5-13.[address] [facility] Comment on above: Performed By: #### C BC ####[facility] Txcxofjini6724 [address] Cristiane Platelets 217 103/ul Normal 150-450 [facility] Comment on above: Performed By: #### C BC ####[facility] [address] [place] [address] Cristiane WBC (Leukocytes) 6.2 103/ul Normal 4.0-11.0 The [facility] Comment on above: Performed By: #### C BC ####[facility] Qeztvjdgod3235 [address] Cristiane PROF 14(COMP METB)on 018 Alanine aminotransferase (ALT) 45 U/L Normal 21-[address] [facility] Comment on above: Performed By: #### C MP ####[facility] [address] [place] [address] Cristiane Albumin 4.9 g/dL Normal 3.5-5.0 [facility] Comment on above: Performed By: #### C MP ####[facility] Yuqfftztyl3684 [address] Cristiane Albumin/Globulin Ratio 1.7 {ratio} Normal [facility] [place] [facility] Comment on above: Performed By: #### C MP ####[facility] Sgiumhgbst8708 [address] Cristiane Alkaline phosphatase (ALP) 101 U/L Normal 38-126 [facility] Comment on above: Performed By: #### C MP ####[facility] Rtvltilcil[address] [place] [id number] Cristiane Anion gap 12.9 mmol/L Normal [facility] Comment on above: Performed By: #### C MP ####[facility] Weoz[address]kj[address] [place] [id number] Cristiane Aspartate aminotransferase (AST) 29 U/L Normal 17-59 [facility] Comment on above: Performed By: #### C MP ####[facility] Vpntmvjltl9566 [address] Cristiane Bilirubin Ql (U) 1.1 mg/dL Normal 0.2-1.3 [facility] Comment on above: Performed By: #### C MP ####[facility] [address] [place] [address] Cristiane BUN/Creatinine Ratio 21.3 mg/mg Normal [facility] Comment on above: Performed By: #### C MP ####[facility] [address] [place] [address] Cristiane Calcium 10.3 mg/dL Critically high 8.4-10.2 The [facility] Comment on above: Performed By: #### C MP ####[facility] [address] [place] [address] Cristiane Chloride 100 mmol/L Normal 98-107 [facility] Comment on above: Performed By: #### C MP ####[facility] [address] [place], [place] [address]Gerken Cristiane CO2 26.0 mmol/L Normal 22.0-30.0 [facility] Comment on above: Performed By: #### C MP ####[facility] [address]dsow[address] [place] [address]Gerken Cristiane Creatinine 0.72 mg/dL Normal 0.66-1.25 [facility] Comment on above: Performed By: #### C MP ####[facility] [address] [place], [place] [address]Gerken Cristiane eGFR (non-black) mL/min/{1.73_m2} Normal >=60 Th e [facility] Comment on above: Performed By: #### C MP ####[facility] Tmjhtsrgvg0402 [place], [place] [address]Hgbsqh Cristiane Globulin 2.9 g/dL Normal [facility] [place] [facility] Comment on above: Performed By: #### C MP ####[facility] E[address] [place], [place] [address]Ebestl Cristiane Glucose mass conc 107 mg/dL Critically high 74-106 Th [facility] Comment on above: Performed By: #### C MP ####[facility] [address]w72[address] [place], [place] [address]Nkamyw Cristiane Potassium molar conc 4.1 mmol/L Normal 3.4-5.[address] [facility] Comment on above: Performed By: #### C MP ####[facility] Qyuetrpzbp4584 [place], [place] [address]Zbavmc Cristiane Protein 7.8 g/dL Normal 6.1-8.2 [facility] [place] [facility] Comment on above: Performed By: #### C MP ####[facility] Eguxsysumf7195 [place], [place] [address]Lfncqo Cristiane Sodium 135 mmol/L Critically low 137-145 [facility] Comment on above: Performed By: #### C MP ####[facility] [address] [place], [place] [address]Eqxykz Cristiane Urea nitrogen 15.0 mg/dL Normal 9.0-20.0 [facility] Comment on above: Performed By: #### C MP ####[facility] [address]vakxjr55[address] [place], [place] [address]Lrjfnl Cristiane Encounters Encounter Date Encounter Type Care Provider Facility Start: 01-15-2024 End: 01-16-2024 ambulatory [facility] Start: 01-08-2024 ambulatory SAIGE MERCEDES [facility] Start: 12-18-2023 ambulatory [facility] Start: 12-18-2023 End: 12-18-2023 ambulatory [facility] Start: 12-02-2023 End: 12-02-2023 ambulatory AMANDA DOHERTY Not Available Start: 11-18-2023 End: 11-18-2023 ambulatory NATHANAEL BASSETT [facility] Start: 11-12-2023 End: 11-12-2023 ambulatory ANALISA RAMAN [facility] Start: 11-07-2023 End: 11-07[facility]23 [facility] Start: 08-05-2023 End: 08-05-2023 ambulatory SIOBHAN [facility] Start: 01-13-2022 End: 01-13-2022 ambulatory Indigo Beal Other [facility] Other Start: 01-13-2022 Office outpatient visit 5 minutes Indigo Beal [facility] Start: 02-16-2021 End: 02-16-2021 Discharged Recurring Riya Hidalgo Work Phone: [facility] Vacc[facility] Off Site Start: 03-28-2018 End: 03-29-2018 Ambulatory LILLI Celi PALOMARES Facility:[facility] Start: 03-27-2018 End: 03-27-2018 Ambulatory NAOMI RUBIO Facility:[facility] Immunizations Immunization Date Immunization Notes Care Provider [facility] 01-02-2022 tetanus toxoid, reduced diphtheria toxoid, and acellular pertussis vaccine, adsorbed Indigo Beal Other [facility] Other 02-16-2021 COVID-19 mRNA,[id number] b2 (Pfizer) Riya Hidalgo Work Phone: [facility] 01-23-2021 COVID-19 mRNA,[id number] b2 (Pfizer) Riya Hidalgo Work Phone: [facility] Payers Date Payer Category Payer Unknown [id number] 1975 Unknown [id number] 1961 Unknown [id number] Self-pay Self Pay [id number] Social History Date Type Detail Facility Tobacco smoking status NHIS Unknown if ever smoked [facility] Start: 1975 Sex Assigned At Male F [facility] Sex Assigned At Sex Assigned At Bir th [facility] Other Goals Date Patient Goal Desired Activity /State Clinical Notes 01-13-2022 to 01-08-2024 Note Date & Type Note Facility 01-08-2024 Note [facility] Progress Note Reason for visit: AF/AFL H&P, follow-up after recent cardioversion HPI: Tio Allison is a 48 y.o. year old with past medical history of Atrial flutter. Flutter was found after his surgery for a torn achilles tendon. He has been dealing with a.flutter and a.fib with RVR since July,. 01/08/2024 He underwent a successful cardioversion 12/18/23. Today EKG shows he reverted back to atrial flutter with RVR. He remains asymptomatic. He has been compliant with his Eliquis. He is frustrated with things and is hoping his upcoming ablation will resolve things. Denies c/o CP, dyspnea, orthopnea, PND, LE edema, dizziness/LH, palpitations, syncope. PMH: Past Medical History: Diagnosis Date Abnormal [...] Connections: Not on file Intimate Partner Violence: Unknown (12/26/2023) [place] Safety & Environment Fear of Current or Ex-Partner: Not on file Emotionally Abused: Not on file Physically Abused: Not on file Sexually Abused: Not on file Physically or Sexually Abused: Not on file Depression: Not on file Housing Stability: Not on file Utilities: Not on file Allergies: No Known Allergies Weight: 119kg Visit Vitals BP 144/88 (BP Location: Left arm, Patient Position: Sitting) Pulse 75 Ht 1.905 m (6' 3 ) Wt 119 kg (262 lb) SpO2 97% BMI 32.75 kg/m??? Smoking Status Never BSA 2.51 m??? Meds: Current Outpatient Medications on File Prior to Visit Medication Sig Dispense Refill amiodarone (Pacerone) 200 mg tablet Take 2 tablets (400 mg) by mouth in the morning and at bedtime for 14 days, THEN 1 tablet (200 mg) in the morning. (Patient taking differently: 200mg daily) 146 tablet 0 atorvastatin (Lipitor) 10 mg tablet TAKE 10 MG BY MOUTH EVERY EVENING dilTIAZem CD (Cardizem CD) 240 mg 24 hr capsule Take 240 mg by mouth in the morning. Eliquis 5 mg tablet Take 1 tablet (5 mg) by mouth in the morning and at bedtime. 180 tablet 3 lisinopril 20 mg tablet 20 mg in the morning. metoprolol tartrate (Lopressor) 50 mg tablet Take 1 tablet (50 mg) by mouth in the morning and at bedtime. 60 tablet 11 varenicline (Chantix) 1 mg tablet Take 1 mg by mouth in the morning and at bedtime. dilTIAZem CD (Cardizem CD) 120 mg 24 hr capsule Take 1 capsule (120 mg) by mouth in the morning. 30 capsule 11 No current facility-administered medications on file prior to visit. ROS: Review of Systems Constitutional: Positive for malaise/fatigue. Respiratory: Positive for snoring. All other systems reviewed and are negative. Physical Exam Constitutional: Appearance: Normal appearance. He is normal weight. HENT: Head: Normocephalic and atraumatic. Right Ear: External ear normal. Left Ear: External ear normal. Eyes: Extraocular Movements: Extraocular movements intact. Pupils: Pupils are equal, round, and reactive to light. Neck: Vascular: No carotid bruit. Cardiovascular: Rate and Rhythm: Normal rate. Rhythm irregular. Pulses: Normal pulses. Heart sounds: Normal heart sounds. Pulmonary: Effort: Pulmonary effort is normal. Breath sounds: Normal breath sounds. Abdominal: General: Bowel sounds are normal. Palpations: Abdomen is soft. Musculoskeletal: General: Normal range of motion. Cervical back: Neck supple. Right lower leg: No edema. Left lower leg: No edema. Skin: General: Skin is warm and dry. Neurological: General: No focal deficit present. Mental Status: He is alert and oriented to person, place, and time. Psychiatric: Mood and Affect: Mood normal. Behavior: Behavior normal. Thought Content: Thought content normal. Judgment: Judgment normal. Labs: @LABRESULTS@ No results found for: CHOLESTEROL TOTAL , HDL , LDL CALC , LDL DIRECT , TRIGLYCERIDES , TSH , T3 TOTAL , T4 TOTAL , THYROID PEROXIDASE AB , BNP EKG: Encounter Date: 12/18/23 ECG 12 lead Result Value Ventricular Rate 60 Atrial Rate 60 IA Interval 190 QRS DURATION 104 QT Interval 464 QTC CALCULATION(BAZETT) 464 P [place] 35 R-[place] 41 T Wave [place] 44 Impression Normal sinus rhythm Left atrial abnormality Incomplete right bundle branch block Borderline ECG When compared with ECG of 18-DEC-2023 07:08, (unconfirmed) Sinus rhythm has replaced Atrial flutter Vent. rate has decreased BY 71 BPM Non-specific change in ST segment in Inferior lead T wave inversion no longer evident in Inferior lead Con (more content not included)... [facility] 01-08-2024 Note Patient here for fol low up cardioversion, and H&P prior to afib ablation. Denies chest pain, SOB, palpitations, lightheadedness/syncope, and bleeding on Eliquis. Review of Systems Constitutional: Positive for malaise/fatigue. Respiratory: Positive for snoring. All other systems reviewed and are negative. [facility] 12-18-2023 Note DIRECT CARDIOVERSION PROCEDURE NOTE Date: 12/18/2023. Type of procedure: DC Cardioversion. Performed by: Nathanael Bassett MD COACH OPERATOR: Dr Koki Gaspar Informed consent: Signed by patient. Indication: 48 year old with past medical history of Atrial flutter was recently seen in the [facility] for second episode of tachycardia. Previously around 07/2023 patient was admitted to [facility] after having foot surgery as he was found to be in flutter postoperatively. On this most recent episode patient had heart rate up into the 150s and was stated to be in A-fib. 30d monitor revealed AF/AFL RVR. He is currently Eliquis which he seems to tolerate without any issues. He had been on uninterrupted anticoagulation for minimum of 6 weeks. Hence, SOFIE was deferred. Preparation and technique: Patient was brought into the procedure room. After an informed consent was obtained following a discussion with the patient where I explained the risk and benefit of the procedure that is not limited to skin desai, fluid in the lungs, heart attack, stroke, or even , though that is very rare. Patches were placed in anteroposterior direction and once patient was made comfortable with Versed 3.5mg and Fentanyl 50mcg. Following sedation, the patient underwent synchronized cardioversion using 360J which converted to sinus rhythm. Post procedure, the patient was stable. No complications noted. Plan: Continue anticoagulation and consider ablation. Nathanael Bassett MD Cardiac Electrophysiology [facility] 11-18-2023 Note [facility] Consult Note Reason for visit: AF/AFL, HFU HPI: Tio Allison is a 48 y.o. year old with past medical history of Atrial flutter. He was recently seen in the [facility] for second episode of tachycardia. Previously around 07/2023 patient was admitted to [facility] after having foot surgery as he was found to be in flutter postoperatively. On this most recent episode patient had heart rate up into the 150s and was stated to be in A-fib. He was recently in 08/[address] dickerson where a 30d monitor was ordered as noted below. there is concern for AF/AFL RVR [id number] 1 for HTN. sleep study 10/2023 shows [...] in the morning. 30 capsule 11 HYDROcodone-acetaminophen ([place]) 5-325 mg tablet metoprolol tartrate (Lopressor) 50 [...] to the encounter. Assessment and Plan: AF/AFL -[id number] 1 for HTN On BB and Cardizem [...] ablftion with f (more content not included)... [facility] 11-12-2023 Note [place] [facility]rophysiology Consult Note Reason for visit: AF/AFL, HFU HPI: Tio Allison is a 48 y.o. year old with past medical history of Atrial flutter. He was recently seen in the [facility] for second episode of tachycardia. Previously around 07/2023 patient was admitted to [facility] after having foot surgery as he was found to be in flutter postoperatively. On this most recent episode patient had heart rate up into the 150s and was stated to be in A-fib. He was recently in 08/[address] dickerson where a 30d monitor was ordered as noted below. there is concern for AF/AFL RVR [id number] 1 for HTN sleep study 10/2023 shows [...] and at bedtime. 180 tablet 3 HYDROcodone-acetaminophen ([place]) 5-325 mg tablet lisinopril 20 mg tablet [...] curvature, no t (more content not included)... [facility] 11-12-2023 Note Patient here for fol low [...] All other systems reviewed and are negative. [facility] 11-07-2023 Note Patient here for fol low up event monitor. He was started on Eliquis for afib. Denies chest pain, SOB, palpitations, and bleeding on Eliquis. Review of Systems Respiratory: Positive for snoring. All other systems reviewed and are negative. [facility] 11-07-2023 Note Cardiology Follow Up Progress Note Chief Complaint: Follow up HPI: Tio Allison is a 48 y.o. male Who was recently evaluated at [facility] for atrial fibrillation with rapid ventricular [...] TWICE A DAY FOR 2 WEEKS HYDROcodone-acetaminophen ([place]) 5-325 mg tablet No current facility-administered medications [...] currently Atrial flutter with rapid ventricular response [id number] 2 score is 2. -Hypertension, well controlled -Snoring, concern for SAGAR Plan: -EKG performed and personally interpreted by me in clinic today. -Given documented atrial fibrillation with [id number] 2 score of 2, lifelong anticoagulation has [...] as needed Siobhan Dickerson MD Interventional Cardiology [facility] 08-05-2023 Note Patient here for [facility] for afib w/ RVR s/p ankle surgery. He was started on Eliquis and metoprolol, and amlodipine was stopped. Seen as inpatient consult by Dr. Dickerson on 07/28. He denies chest pain, SOB, palpitations, and bleeding on Eliquis. Review of Systems Respiratory: Positive for snoring. All other systems reviewed and are negative. [facility] 08-05-2023 Note Cardiology Follow Up Progress Note Chief Complaint: Hospital follow-up HPI: Tio Allison is a 47 y.o. male Who was recently evaluated at [facility] for atrial fibrillation with rapid ventricular [...] in the morning and at bedtime. HYDROcodone-acetaminophen ([place]) 5-325 mg tablet lisinopril 20 mg tablet [...] -Postoperative atrial fibrillation, currently in sinus rhythm. [id number] 2 score is 2. -Hypertension, well controlled -Snoring, concern for SAGAR Plan: -Given documented atrial fibrillation with [id number]-CEFm 2 score of 2, would recommend lifelong [...] as needed Siobhan Dickerson MD Interventional Cardiology [facility] 01-13-2022 Evaluation note Encounter Date Diagnosis Assessment Notes Jan, Encounter for removal of sutures (ICD-10 - Z48.02) sutures were removed without incident [facility] Other Evaluation noteNo Assessments Information Available [facility] N[facility] - Reported* Type Description Date Medical History HTN Surgical History left knee arthroscopy Hospitalization History see above [facility] Other Summary Purpose Family History No Family History Records FoundNo Family History Records FoundNo Family History Records Found Advance Directives No Advanced Directives Records Found Advance Directive Response Recorded Date/ Time Advance Directives No January 17 021 7:34pm Chief Complaint and Reason for Visit Chief Complaint vaccine ins Additional Source Comments (unrecognized sect ion and content) No Status Records FoundNo Status Records FoundNo Status Records Found INFORMATION SOURCE (unrecogn ized section and content) DATE CREATED AUTHOR 04/22/2018 [facility] DATE CREATED AUTHOR AUTHOR'S ORGANIZ ATION 12/03/2023 [facility] EPIC DATE CREATED AUTHOR AUTHOR'S ORGANIZ ATION 01/17/[address] [facility] REASON FOR VISIT (unrecogniz ed section [...] BE BASED ON THE PRIMARY CLINICAL RECORDS. [employer] provides no warranty or guarantee of the accuracy or completeness of information in this document.
[2024-01-21 13:13] LABS: Anion Gap 17.6; BUN Creatinine Ratio 15.2; Calcium 9.1 mg/dL (8.5-10.1); Carbon Dioxide 22.8 mmol/L (21.0-32.0); Chloride 102 mmol/L (98-107); Estimated GFR (African America >60 (>=60); Estimated GFR (Non-African Ame >60 (>=60); Glucose 102 mg/dL (74-106); Potassium 4.4 mmol/L (3.5-5.1); Sodium 138 mmol/L (136-145)
== END 2024-01-21 12:17 | disposition home or self-care (01) ==
LOC: LAB 12:16
PROVIDERS: Visit Provider Internal Medicine Cardiovascular Disease
DX: I48.0 Paroxysmal atrial fibrillation (principal)
CPT/HCPCS: 36415; 80048

== ENCOUNTER 2024-01-24 07:02 | Outpatient (OUT) | payer BC, SELFPAY ==
--- OUTSIDE RECORDS SUMMARY | 2024-01-24 07:06 | XMS_ITS | CCD ---
Author Organization [facility] Care Team Providers Care Fuel Cell Technician Name Role Phone NAOMI RUBIO Unavailable Unavailable [...] RAMAN Attending Unavailable NATHANAEL BASSETT Referring Unavailable LETYNATHANAEL Referring Unavailable NATHANAEL BASSETT Referring Unavailable NATHANAEL [...] most likely benign. Electronically signed: SID JOEL. [facility] Comment on above: Order Comment: Jessica aponte schedule prior to January 28 Office Visiton 01-08-2024 Follow-up visit [id number] Tio Allison 1975 Date Provider Department Center 01/08/2024 SAIGE HOBSON KAREN [facility] Family History Problem Relation Age of Onset Atrial fibrillation Father Coronary artery disease Father Family Status - Relation Status Age at Father Level of Service:55599 [place] OFFICE/OUTPATIENT ESTABLISHED MOD MDM 30 MIN Normal [facility] Letter (Out)on 01-07-2024 Letter (Out) [id number] Tio Allison 1975 M Date Provider Department Center 01/07/2024 None-None [facility] Medical C Family History Problem Relation Age of Onset Atrial fibrillation Father Coronary artery disease Father Family Status - Relation Status Age at Father Normal [facility] Letter (Out)on 01-05-2024 Letter (Out) [id number] Tio Allison 1975 M Date Provider Department Center 01/05/2024 None-None [facility] AUTH CT Medical C Family History Problem Relation Age of Onset Atrial fibrillation Father Coronary artery disease Father Family Status - Relation Status Age at Father Normal [facility] Letter (Out)on 12-22-2023 Letter (Out) [id number] Tio Allison 1975 M Date Provider Department Center 12/22/2023 None-None [facility] AUTH CT Medical Family History Problem Relation Age of Onset Atrial fibrillation Father Coronary artery disease Father Family Status - Relation Status Age at Father Normal [facility] ANESon 12-18-2023 ANES Attestation signed by Nathanael [...] 12/18/23 0835 Procedure: Cardioversion - Dec Location: [facility] 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 Additional Equipment Requests Normal [facility] HPon 12-18-2023 HP Attestation signed by Nathanael [...] flutter. He was recently seen in the [facility] for second episode of tachycardia. Previously around 07/2023 patient was admitted to [facility] after having foot surgery as he was found to be in flutter postoperatively. On this most recent episode patient had heart rate up into the 150s and was stated to be in A-fib. He was recently in 08/[address] dickerson where a 30d monitor was ordered as noted below. there is concern for AF/AFL RVR [id number] 1 for HTN sleep study 10/2023 shows [...] at bedtime. 180 tablet 3 HYDROcodone-acetamin ophen ([place]) 5-325 mg tablet lisinopril 20 mg tablet [...] no bruising Phy (more content not included)... [facility] NURSNOTEon 12-18-2023 NURSNOTE RN educated pt on d/c instructions. RN encouraged pt to voice any questions or concerns. Pt verbalizes no questions or concerns at this time. Pt was wheeled off of unit with all of belongings. [facility] Orders Onlyon 12-11-2023 Orders Only [id number] Tio Allison 1975 M Date Provider Department Center 12/11/2023 KEITH GUZMÁN [facility] V[facility] LAB [facility] Family History Problem Relation Age of Onset Atrial fibrillation Father Coronary artery disease Father Family Status - Relation Status Age at Father [facility] Letter (Out)on 12-02-2023 Letter (Out) [id number] Cardenas 1975 M Date Provider Department Center 12/02/2023 None-None [facility] AUTH UT Medical C Family History Problem Relation Age of Onset Atrial fibrillation Father Coronary artery disease Father Family Status - Relation Status Age at Father [facility] Prep for Procedureon 024 Prep for Procedure [id number] Tio Allison Luiz 1975 M Date Provider Department Center 12/02/2023 1987-[facility] VASC LAB CT [facility] Family History Problem Relation Age of Onset Atrial fibrillation Father Coronary artery disease Father Family Status - Relation Status Age at Father Normal [facility] Orders Onlyon 11-18-2023 Orders Only [id number] Tio Allison Luiz 1975 M Date Provider Department Center 11/18/2023 DOM PERES KAREN [facility] Family History Problem Relation Age of Onset Atrial fibrillation Father Coronary artery disease Father Family Status - Relation Status Age at Father Normal [facility] Telemedicineon 11-18-2023 Telemedicine [id number] Tio Allison Luiz 1975 Date Provider Department Dawn 11/18/2023 241-NATHANAEL BASSETT CARD [facility] Family History Problem Relation Age of Onset Atrial fibrillation Father Coronary artery disease Father Family Status - Relation Status Age at Father Level of Service:68280 [place] PHYS/QHP TELEPHONE EVALUATION 11-20 MIN [facility] 36on 11-14-2023 36 He can take 2 and see how he does from there , ok to take a second dose today if he already took it. Always be mindful of low heart rate and other side effects like lightheadedness, dizziness, SOB, fatigue [facility] 36 Patient called with update after starting diltiazem. He thinks it was working for a bit but then after so long his HR goes back up to 130-140's. Did you want to add more? Please advise. Thanks. Normal [facility] Office Visiton 11-12-2023 Follow-up visit [id number] Darcie,Tio Dee 1975 Date Provider Department Center 11/12/2023 Trista-ANALISA RAMAN KAREN [facility] Family History Problem Relation Age of Onset Atrial fibrillation Father Coronary artery disease Father Family Status - Relation Status Age at Father Level of Service:65984 [place] OFFICE/OUTPATIENT ESTABLISHED MOD MDM 30 MIN [facility] Office Visiton 11-07-2023 Follow-up visit [id number] Darcie,Tio Dee 1975 Date Provider Department Center 11/07/2023 [id number] CANTORAdelina KRAEN [facility] Family History Problem Relation Age of Onset Atrial fibrillation Father Coronary artery disease Father Family Status - Relation Status Age at Father Level of Service:54475 [place] OFFICE/OUTPATIENT ESTABLISHED LOW MDM 20 MIN Normal [facility] Office Visiton 08-05-2023 Follow-up visit [id number] Tio Allison 1975 M Date Provider Department Center [facility]20[facility] Family History Problem Relation Age of Onset Atrial fibrillation Father Coronary artery disease Father Family Status - Relation Status Age at Father Level of Service:76620 [place] OFFICE/OUTPATIENT ESTABLISHED MOD MDM 30-39 MIN Normal [facility] CT HEAD WO CONon 03-29-2018 CT HEAD WO CON [address] [place] [address] Patient: TIO ALLISON. Exam Date: 03/28/2018DOB: 1975 Gender:M : DR LILLI PALOMARES Admission #: [id number] : Order #: [id number] HERE TO VIEW EXAM RADIOLOGY REPORT PROCEDURE: [...] M.D. on 03/28/2018 at 23:[address] [facility] CBC AUTO DIFFon 03-28-2018 Basophils Auto #/vol (Bld) 0.0 103/ul Normal 0.0-0.1 [facility] Comment on above: Performed By: #### C BC ####[facility] [address] [place] [address] Cristiane Basophils/100 WBC Auto (Bld) 0.4 % Normal 0.2-2.[address] [facility] Comment on above: Performed By: #### C BC ####[facility] [address] [place] [address] Cristiane Eosinophils 0.1 103/ul Normal 0.0-0.[address] [facility] Comment on above: Performed By: #### C BC ####[facility] Ensuvjhnuc[address] [place] [address] Crist[place] Eosinophils/100 leukocytes 1.1 % Normal 0.9-7.[address] [facility] Comment on above: Performed By: #### C BC ####[facility] [address] [place] [address] Cristiane Erythrocyte distribution width Auto Ratio (RBC) 11.9 % Normal 11.0-15.0 [facility] Comment on above: Performed By: #### C BC ####[facility] Trjmssiiow[address] [place] [address] Cristiane Erythrocytes (RBC) 5.40 106/ul Normal 4.70-6.10 [facility] Comment on above: Performed By: #### C BC ####[facility] Q[address]auqiwii[address] [place] [address] Cristiane Hematocrit (HCT) 45.6 % Normal 42.0-54.0 [facility] Comment on above: Performed By: #### C BC ####[facility] [address] [place], [place] [address]Ger[place] Cristiane Hemoglobin mass conc (Bld) 15.7 g/dL Normal 14.0-18.[address] [facility] Comment on above: Performed By: #### C BC ####[facility] [address] [place], [place] [address]Ger[address] Cristiane IG # 0.02 10e3/ul Normal 0.00-0.03 [facility] Comment on above: Performed By: #### C BC ####[facility] V[address]qqogw[address] [place], [place] [address] Cristiane IG % 0.3 % Normal 0.0-0.5 [facility] Comment on above: Performed By: #### C BC ####[facility] Zblfuigsnb0540 [address] Cristiane Lymphocytes 3.1 103/ul Normal 1.2-3.[address] [facility] Comment on above: Performed By: #### C BC ####[facility] Zolpzmclhb9667 [address] Cristiane Lymphocytes/100 leukocytes 41.2 % Normal 20.5-60.[address] [facility] Comment on above: Performed By: #### C BC ####[facility] Vwianhbczr2163 [address] Cristiane MANUAL DIFF REQ NO Normal [facility] Comment on above: Performed By: #### C BC ####[facility] [address]uh[address] [place] [address] Cristiane MCH 29.1 pg Normal 25.9-34.[address] [facility] Comment on above: Performed By: #### C BC ####[facility] Rbsqvdkzko7062 [address] Cristiane MCHC mass conc (RBC) 34.4 g/dL Normal 29.9-35.[address] [facility] Comment on above: Performed By: #### C BC ####[facility] Lgwchoqflp4936 [address] Cristiane MCV 84.4 fL Normal 80.0-94.[address] [facility] Comment on above: Performed By: #### C BC ####[facility] Lledjcumhx9120 [address] Cristiane Monocytes 0.5 103/ul Normal 0.3-0.[address] [facility] Comment on above: Performed By: #### C BC ####[facility] Lkkzjspopi7698 [address] Cristiane Monocytes/100 leukocytes 6.9 % Normal 1.7-12.[address] [facility] Comment on above: Performed By: #### C BC ####[facility] [address] [place] [id number] Sauer Neutrophils 3.8 103/ul Normal 1.4-6.[address] [facility] Comment on above: Performed By: #### C BC ####[facility] Zq[address]awmsuvm67[address] [place] [address] Sauer Neutrophils/100 WBC Auto (Bld) 50.1 % Normal 43.0-75.[address] [facility] Comment on above: Performed By: #### C BC ####[facility] [address]oddokv[address] [place], [place] [address] Sauer Platelet mean volume (PMV) 10.8 fL Normal 9.5-13.[address] [facility] Comment on above: Performed By: #### C BC ####[facility] Banoqgelzc[address] [place], [place] [address] Cristiane Platelets 232 103/ul Normal 150-[address] [facility] Comment on above: Performed By: #### C BC ####[facility] Jrieqvadip[address] [place], [place] [address] Sauer WBC (Leukocytes) 7.5 103/ul Normal 4.0-11.0 [facility] Comment on above: Performed By: #### C BC ####[facility] Kyrohltvxy[address] [place], [place] [address] Cristiane PROF 14(COMP METB)on 018 Alanine aminotransferase (ALT) 49 U/L Normal 21-[address] [facility] Comment on above: Performed By: #### C MP ####[facility] [address]uxrxmf[address] [place], [place] [address] Sauer Albumin 4.7 g/dL Normal 3.5-5.[address] [facility] Comment on above: Performed By: #### C MP ####[facility] Udyjayfajw[address] [place], [place] [address]noah Sauer Albumin/Globulin Ratio 1.6 {ratio} Normal [facility] Comment on above: Performed By: #### C MP ####[facility] Udtb[address]kshb[address] [place], [place] [address]ken Cristiane Alkaline phosphatase (ALP) 97 U/L Normal 38-[address] [facility] Comment on above: Performed By: #### C MP ####[facility] Ibbyz[address]hr[address] [place] [address] Cristiane Anion gap 13.1 mmol/L Normal [facility] Comment on above: Performed By: #### C MP ####[facility] [address]tclqvmsg[address] [place], [place] [address] Cristiane Aspartate aminotransferase (AST) 29 U/L Normal 17-[address] [facility] Comment on above: Performed By: #### C MP ####[facility] T[address]fvqh[address] [place] [address] Cristiane Bilirubin Ql (U) 0.8 mg/dL Normal 0.2-1.3 [facility] Comment on above: Performed By: #### C MP ####[facility] Uq[address]nll[address] [place] [address] Cristiane BUN/Creatinine Ratio 20.2 mg/mg Normal [facility] Comment on above: Performed By: #### C MP ####[facility] [address]yluvpzdge[address] [place] [address] Cristiane Calcium 9.9 mg/dL Normal 8.4-10.[address] [facility] Comment on above: Performed By: #### C MP ####[facility] [address]wemezuo[address] [place] [address] Cristiane Chloride 101 mmol/L Normal 98-[address] [facility] Comment on above: Performed By: #### C MP ####[facility] Flidhlzsra[address] [place] [address] Cristiane CO2 24.0 mmol/L Normal 22.0-30.[address] [facility] Comment on above: Performed By: #### C MP ####[facility] Epreyboeiw[address] [place] [address] Cristiane Creatinine 0.80 mg/dL Normal 0.66-1.[address] [facility] Comment on above: Performed By: #### C MP ####[facility] Gnockiyyuh[address] [place] [address] Cristiane eGFR (non-black) mL/min/{1.73_m2} Normal >=60 [facility] Comment on above: Performed By: #### C MP ####[facility] Kuvzfcjilu9217 [address] Cristiane Globulin 3.0 g/dL Normal [facility] Comment on above: Performed By: #### C MP ####[facility] Hommufeaiy5981 [address] Cristiane Glucose mass conc 154 mg/dL Critically high 74-106 [facility] Comment on above: Performed By: #### C MP ####[facility] [address]ijwvga[address] [place] [address] Cristiane Potassium molar conc 3.7 mmol/L Normal 3.4-5.0 [facility] Comment on above: Performed By: #### C MP ####[facility] [address]he[address] [place] [address] Cristiane Protein 7.6 g/dL Normal 6.1-8.2 [facility] Comment on above: Performed By: #### C MP ####[facility] M[address]hjvxbae[address] [place] [address] Cristiane Sodium 134 mmol/L Critically low 137-145 [facility] Comment on above: Performed By: #### C MP ####[facility] Srkybskmda[address] [place] [address] Cristiane Urea nitrogen 16.0 mg/dL Normal 9.0-20.0 [facility] Comment on above: Performed By: #### C MP ####[facility] Bebhwrsnfm3247 [address] Cristiane CBC AUTO DIFFon 03-27-2018 Basophils Auto #/vol (Bld) 0.0 103/ul Normal 0.0-0.1 [facility] Comment on above: Performed By: #### C BC ####[facility] Pdtygbtdko[address] [place] [address] Cristiane Basophils/100 WBC Auto (Bld) 0.5 % Normal 0.2-2.0 [facility] Comment on above: Performed By: #### C BC ####[facility] Wuuuvoeyzy4463 [address] Cristiane Eosinophils 0.1 103/ul Normal 0.0-0.7 [facility] Comment on above: Performed By: #### C BC ####[facility] Obtwxhputl6667 [address] Cristiane Eosinophils/100 leukocytes 0.8 % Critically low 0.9-7.0 [facility] Comment on above: Performed By: #### C BC ####[facility] Y[address]zwoadue[address] [place] [address] Cristiane Erythrocyte distribution width Auto Ratio (RBC) 11.9 % Normal 11.0-15.0 [facility] Comment on above: Performed By: #### C BC ####[facility] Jmwmchezbv[address] [place] [address] Cristiane Erythrocytes (RBC) 5.42 106/ul Normal 4.70-6.10 [facility] Comment on above: Performed By: #### C BC ####[facility] Kuq[address]frxq[address] [place], [place] [address] Cristiane Hematocrit (HCT) 46.0 % Normal 42.0-54.0 [facility] Comment on above: Performed By: #### C BC ####[facility] [address]joturpj[address] [place] [address] Cristiane Hemoglobin mass conc (Bld) 15.6 g/dL Normal 14.0-18.0 [facility] Comment on above: Performed By: #### C BC ####[facility] [address]rsqhqhxs[address] [place] [address] Cristiane IG # 0.02 10e3/ul Normal 0.00-0.03 [facility] Comment on above: Performed By: #### C BC ####[facility] [address]uybqlkrft[address] [place] [address] Cristiane IG % 0.3 % Normal 0.0-0.5 [facility] Comment on above: Performed By: #### C BC ####[facility] [address]jtql[address] [place] [address] Cristiane Lymphocytes 1.8 103/ul Normal 1.2-3.[address] [facility] Comment on above: Performed By: #### C BC ####[facility] Navgtltoos7340 [place], [place] [address]Nguuqj Cristiane Lymphocytes/100 leukocytes 29.5 % Normal 20.5-60.[address] [facility] Comment on above: Performed By: #### C BC ####[facility] Sjvemqpdkq7[address] [place] [address] Cristiane MANUAL DIFF REQ NO Normal [facility] Comment on above: Performed By: #### C BC ####[facility] Zyenbbyebv[address] [place], [place] [address] Cristiane MCH 28.8 pg Normal 25.9-34.[address] [facility] Comment on above: Performed By: #### C BC ####[facility] Wsfbqzjfws[address] [place], [place] [address] Cristiane MCHC mass conc (RBC) 33.9 g/dL Normal 29.9-35.[address] [facility] Comment on above: Performed By: #### C BC ####[facility] Svvvbwdwjy[address] [place], [place] [address] Cristiane MCV 84.9 fL Normal 80.0-94.[address] [facility] Comment on above: Performed By: #### C BC ####[facility] Wumglqnmcj[address] [place], [place] [address] Cristiane Monocytes 0.4 103/ul Normal 0.3-0.[address] [facility] Comment on above: Performed By: #### C BC ####[facility] Qoqftpqzty[address] [place], [place] [address] Cristiane Monocytes/100 leukocytes 6.4 % Normal 1.7-12.[address] [facility] Comment on above: Performed By: #### C BC ####[facility] Ljdqqvupbl[address] [place], [place] [address] Cristiane Neutrophils 3.9 103/ul Normal 1.4-6.5 [facility] Comment on above: Performed By: #### C BC ####[facility] Twlctjbool2629 [address] Sauer Neutrophils/100 WBC Auto (Bld) 62.5 % Normal 43.0-75.0 [facility] Comment on above: Performed By: #### C BC ####[facility] Blceuiiliy3322 [address] Cristiane Platelet mean volume (PMV) 10.8 fL Normal 9.5-13.5 [facility] Comment on above: Performed By: #### C BC ####[facility] Jathcnmwbn7565 [address] Cristiane Platelets 217 103/ul Normal 150-[address] [facility] Comment on above: Performed By: #### C BC ####[facility] F[address]coclell[address] [place] [address] Cristiane WBC (Leukocytes) 6.2 103/ul Normal 4.0-11.0 [facility] Comment on above: Performed By: #### C BC ####[facility] Eguleynkhq0320 [address] Cristiane PROF 14(COMP METB)on 018 Alanine aminotransferase (ALT) 45 U/L Normal 21-72 [facility] Comment on above: Performed By: #### C MP ####[facility] Ohforoptuk[address] [place] [address] Cristiane Albumin 4.9 g/dL Normal 3.5-5.[address] [facility] Comment on above: Performed By: #### C MP ####[facility] Jbyjykesyq5389 [address] Cristiane Albumin/Globulin Ratio 1.7 {ratio} Normal [facility] Comment on above: Performed By: #### C MP ####[facility] Fzrwqtkbng7949 [address] Cristiane Alkaline phosphatase (ALP) 101 U/L Normal 38-[address] [facility] Comment on above: Performed By: #### C MP ####[facility] [address]eroa[address] [place] [address] Cristiane Anion gap 12.9 mmol/L Normal [facility] Comment on above: Performed By: #### C MP ####[facility] [address]omx[address]temd[address] [place] [address] Cristiane Aspartate aminotransferase (AST) 29 U/L Normal 17-[address] [facility] Comment on above: Performed By: #### C MP ####[facility] Sdfyxdqiui7925 [address] Cristiane Bilirubin Ql (U) 1.1 mg/dL Normal 0.2-1.3 [facility] Comment on above: Performed By: #### C MP ####[facility] [address]ylbkgom[address] [place] [address] Cristiane BUN/Creatinine Ratio 21.3 mg/mg Normal [facility] Comment on above: Performed By: #### C MP ####[facility] Zlrsehdtbv[address] [place] [address] Cristiane Calcium 10.3 mg/dL Critically high 8.4-10.2 [facility] Comment on above: Performed By: #### C MP ####[facility] Smgsibfmfb[address] [place] [address] Cristiane Chloride 100 mmol/L Normal 98-[address] [facility] Comment on above: Performed By: #### C MP ####[facility] [address]zj[address] [place], [place] [address] Cristiane CO2 26.0 mmol/L Normal 22.0-30.[address] [facility] Comment on above: Performed By: #### C MP ####[facility] [address]jmd[address] [place] [address] Cristiane Creatinine 0.72 mg/dL Normal 0.66-1.[address] [facility] Comment on above: Performed By: #### C MP ####[facility] [address]pt[address]wsnq[address] [place], [place] [address] Cristiane eGFR (non-black) mL/min/{1.73_m2} Normal >=[address] [facility] Comment on above: Performed By: #### C MP ####[facility] Kxvhherwju12[address] [place], [place] [address]Jwctma Cristiane Globulin 2.9 g/dL Normal [facility] Comment on above: Performed By: #### C MP ####[facility] Dfokczdyaz0521 [place], [place] [address]Isqyum Cristiane Glucose mass conc 107 mg/dL Critically high 74-106 [facility] Comment on above: Performed By: #### C MP ####[facility] Aawqlgkmiy94[address] [place], [place] [address]Avgjhv Cristiane Potassium molar conc 4.1 mmol/L Normal 3.4-5.0 [facility] Comment on above: Performed By: #### C MP ####[facility] Grwtokmmrr2286 [place], [place] [address]Vdffdx Cristiane Protein 7.8 g/dL Normal 6.1-8.[address] [facility] Comment on above: Performed By: #### C MP ####[facility] Jzfukyjhdo5971 [place], [place] [address]Ibdgsg Cristiane Sodium 135 mmol/L Critically low 137-145 [facility] Comment on above: Performed By: #### C MP ####[facility] [id number] [place], [place] [address]Tfohet Cristiane Urea nitrogen 15.0 mg/dL Normal 9.0-20.0 [facility] Comment on above: Performed By: #### C MP ####[facility] [id number] [place], [place] [address]Wpexjt Cristiane Encounters Encounter Date Encounter Type Care Provider Facility Start: 01-15-2024 End: 01-16-2024 ambulatory [facility] Start: 01-08-2024 ambulatory SAIGE MERCEDES [facility] Start: 12-18-2023 ambulatory [facility] Start: 12-18-2023 End: 12-18-2023 ambulatory [facility] Start: 12-02-2023 End: 12-02-2023 ambulatory AMANDA DOHERTY Not Available Start: 11-18-2023 End: 11-18-2023 ambulatory NATHANAEL BASSETT [facility] Start: 11-12-2023 End: 11-12-2023 ambulatory ANALISA RAMAN [facility] Start: 11-07-2023 End: 11-07-[facility] Start: 08-05-2023 End: 08-05-2023 ambulatory SIOBHAN [facility] Start: 01-13-2022 End: 01-13-2022 ambulatory Indigo Beal Other [employer] Other Start: 01-13-2022 Office outpatient visit 5 minutes Indigo Beal [facility] Start: 02-16-2021 End: 02-16-2021 Discharged Recurring Riya Hidalgo Work Phone: [facility] Vacc[facility] Off [facility] Start: 03-28-2018 End: 03-29-2018 Ambulatory LILLI Celi PALOMARES Facility:[facility]1 Start: 03-27-2018 End: 03-27-2018 Ambulatory NAOMI RUBIO Facility:[facility]1 Immunizations Immunization Date Immunization Notes Care Provider [facility] 01-02-2022 tetanus toxoid, reduced diphtheria toxoid, and acellular pertussis vaccine, adsorbed Indigo Beal Other [employer] Other 02-16-2021 COVID-19 mRNA,[id number] b2 (Pfizer) Riya Hidalgo Work Phone: [facility] 01-23-2021 COVID-19 mRNA,[id number] b2 (Pfizer) Riya Hidalgo Work Phone: [facility] Payers Date Payer Category Payer Unknown [id number] 1975 Unknown [id number] 1961 Unknown [id number] Self-pay Self Pay [id number] Social History Date Type Detail Facility Tobacco smoking status NHIS Unknown if ever smoked [facility] Start: 1975 Sex Assigned At Male F [facility] Sex Assigned At Sex Assigned At Bir th [facility] Other Goals Date Patient Goal Desired Activity [...] on file Intimate Partner Violence: Unknown (12/26/2023) CT Safety & Environment Fear of Current or [...] Value Ventricular Rate 60 Atrial Rate 60 NV Interval 190 QRS DURATION 104 QT Interval 464 QTC CALCULATION(BAZETT) 464 P [place] 35 R-[place] 41 T Wave [place] 44 Impression Normal sinus rhythm Left atrial abnormality Incomplete right bundle branch block Borderline ECG When compared with ECG of 18-DEC-2023 07:08, (unconfirmed) Sinus rhythm has replaced Atrial flutter Vent. rate has decreased BY 71 BPM Non-specific change in ST segment in Inferior lead T wave inversion no longer evident in Inferior lead Con (more content not included)... [facility] 01-08-2024 Note Patient here for fol low up cardioversion, and H&P prior to afib ablation. Denies chest pain, SOB, palpitations, lightheadedness/syncope, and bleeding on Eliquis. Review of Systems Constitutional: Positive for malaise/fatigue. Respiratory: Positive for snoring. All other systems reviewed and are negative. [facility] 12-18-2023 Note DIRECT CARDIOVERSION PROCEDURE NOTE Date: 12/18/2023. Type of procedure: DC Cardioversion. Performed by: Nathanael Bassett MD CITY DIRECTOR: Dr Koki Gaspar Informed consent: Signed by patient. Indication: 48 year old with past medical history of Atrial flutter was recently seen in the [facility] for second episode of tachycardia. Previously around 07/2023 patient was admitted to [facility] after having foot surgery as he [...] consider ablation. Nathanael Bassett MD Cardiac Electrophysiology [facility] 11-18-2023 Note [facility] Electrophysiology Consult Note Reason for visit: AF/AFL, HFU HPI: Tio Allison is a 48 y.o. year old with past medical history of Atrial flutter. He was recently seen in the [facility] for second episode of tachycardia. Previously around 07/2023 patient was [address] to [facility] after having foot surgery as he was found to be in flutter postoperatively. On this most recent episode patient had heart rate up into the 150s and was stated to be in A-fib. He was recently in 08/[address] dickerson where a 30d monitor was ordered as noted below. there is concern for AF/AFL RVR [id number] 1 for HTN. sleep study 10/2023 shows [...] in the morning. 30 capsule 11 HYDROcodone-acetaminophen ([place]) 5-325 mg tablet metoprolol tartrate (Lopressor) 50 [...] to the encounter. Assessment and Plan: AF/AFL -[id number] 1 for HTN On BB and Cardizem [...] ablftion with f (more content not included)... [facility] 11-12-[address] Electrophysiology Consult Note Reason for visit: AF/AFL, HFU HPI: Tio Allison is a 48 y.o. year old with past medical history of Atrial flutter. He was recently seen in the [facility] for second episode of tachycardia. Previously around 07/20[address] to [facility] after having foot surgery as he was found to be in flutter postoperatively. On this most recent episode patient had heart rate up into the 150s and was stated to be in A-fib. He was recently in 08/[address] dickerson where a 30d monitor was ordered as noted below. there is concern for AF/AFL RVR [id number] 1 for HTN sleep study 10/2023 shows [...] and at bedtime. 180 tablet 3 HYDROcodone-acetaminophen ([place]) 5-325 mg tablet lisinopril 20 mg tablet [...] curvature, no t (more content not included)... [facility] 11-12-2023 Note Patient here for fol low [...] All other systems reviewed and are negative. [facility] 11-07-2023 Note Patient here for fol low up event monitor. He was started on Eliquis for afib. Denies chest pain, SOB, palpitations, and bleeding on Eliquis. Review of Systems Respiratory: Positive for snoring. All other systems reviewed and are negative. [facility] 11-07-2023 Note Cardiology Follow Up Progress Note Chief Complaint: Follow up HPI: Tio Allison is a 48 y.o. male Who was recently evaluated at [facility] for atrial fibrillation with rapid ventricular [...] TWICE A DAY FOR 2 WEEKS HYDROcodone-acetaminophen ([place]) 5-325 mg tablet No current facility-administered medications [...] currently Atrial flutter with rapid ventricular response [id number] 2 score is 2. -Hypertension, well controlled -Snoring, concern for SAGAR Plan: -EKG performed and personally interpreted by me in clinic today. -Given documented atrial fibrillation with [id number] 2 score of 2, lifelong anticoagulation has [...] as needed Siobhan Dickerson MD Interventional Cardiology [facility] 08-05-2023 Note Patient here for [facility] for afib w/ RVR s/p ankle surgery. He was started on Eliquis and metoprolol, and amlodipine was stopped. Seen as inpatient consult by Dr. Dickerson on 07/28. He denies chest pain, SOB, palpitations, and bleeding on Eliquis. Review of Systems Respiratory: Positive for snoring. All other systems reviewed and are negative. [facility] 08-05-2023 Note Cardiology Follow Up Progress Note Chief Complaint: Hospital follow-up HPI: Tio Allison is a 47 y.o. male Who was recently evaluated at [facility] for atrial fibrillation with rapid ventricular [...] in the morning and at bedtime. HYDROcodone-acetaminophen ([place]) 5-325 mg tablet lisinopril 20 mg tablet [...] -Postoperative atrial fibrillation, currently in sinus rhythm. [id number] 2 score is 2. -Hypertension, well controlled -Snoring, concern for SAGAR Plan: -Given documented atrial fibrillation with [id number] 2 score of 2, would recommend lifelong [...] as needed Siobhan Dickerson MD Interventional Cardiology [facility] 01-13-2022 Evaluation note Encounter Date Diagnosis Assessment Notes Jan, Encounter for removal of sutures (ICD-10 - Z48.02) sutures were removed without incident [employer] Other Evaluation noteNo Assessments Information Available [facility] - Reported* Type Description Date Medical History HTN Surgical History left knee arthroscopy Hospitalization History see above [employer] Other Summary Purpose Family History No Family [...] AUTHOR AUTHOR'S ORGANIZ ATION 12/03/2023 [facility] EPIC DATE CREATED AUTHOR AUTHOR'S ORGANIZ ATION 01/17/2024 [facility] REASON FOR VISIT (unrecogniz ed [...] BE BASED ON THE PRIMARY CLINICAL RECORDS. [employer] provides no warranty or guarantee of the accuracy or completeness of information in this document.
[2024-01-24 07:34] LABS: Basophils Percent Auto 0.5 % (0.2-2.0); Eosinophils Absolute Auto 0.1 10^3/uL (0.0-0.7); Eosinophils Percent Auto 1.5 % (0.9-7.0); Hematocrit 46.9 % (42.0-54.0); Hemoglobin 14.8 g/dL (14.0-18.0); Immature Granulocytes Abs Auto 0.02 10^3/uL (0.00-0.03); Immature Granulocytes Pct Auto 0.3 % (0.0-0.5); Lymphocytes Absolute Auto 2.7 10^3/uL (1.2-3.8); Lymphocytes Percent Auto 34.3 % (20.5-60.0); Mean Corpuscular HGB Conc 31.6 g/dL (29.9-35.2); Mean Corpuscular Hemoglobin 27.6 pg (25.9-34.0); Mean Corpuscular Volume 87.5 fL (80.0-94.0); Mean Platelet Volume 11.1 fL (9.5-13.5); Monocytes Absolute Auto 0.7 10^3/uL (0.3-0.8); Monocytes Percent Auto 9.4 % (1.7-12.0); Neutrophils Absolute Auto 4.3 10^3/uL (1.4-6.5); Platelet Count 216 10^3/uL (150-450); Red Blood Count 5.36 10^6/uL (4.70-6.10); Red Cell Distribution Width 13.2 % (11.0-15.0); White Blood Count 7.9 10^3/uL (4.0-11.0)
== END 2024-01-24 07:03 | disposition home or self-care (01) ==
LOC: LAB 07:04
PROVIDERS: PCP Family Medicine; Visit Provider Internal Medicine Cardiovascular Disease
DX: I48.0 Paroxysmal atrial fibrillation (principal)
CPT/HCPCS: 36415; 85025